=== PATIENT | male | born 1960 | race Caucasian/White ===

== ENCOUNTER 2016-10-24 06:09 | Day surgery (SDC) | payer MEDICAID ==
[~2016-10-24] VITALS: Ht 177.8 cm; Wt 140.9 kg
[~2016-10-24 06:09] MED LIST: BLOO1KIT65; BLOOD GLUCOSE T1 TES SQ; GEMF600T PO; HYDR25TA5 PO; LEVO25TA4 PO; METF500T PO; ONETTES4; TAMO20TA6 PO
[2016-10-24 06:45] VITALS: BP 158/94; PULSE 98; RESP 20; TEMP 98.2; O2SAT 96
[2016-10-24] MEDS ORDERED: SODIUM CHLOR 0.9% 1000 ML IV SCH (07:00)
[2016-10-24] MEDS ORDERED: LIDOCAINE HCL 1% 20 ML VIAL ONE ×2 (08:05→08:53)
[2016-10-24] MEDS ORDERED: MIDAZOLAM HCL 2 MG/2 ML VIAL ONE ×2 (08:23→08:54)
[2016-10-24] MEDS ORDERED: fentaNYL CITRATE 250 MCG/5 ML AMP ONE (08:23)
--- NOTE | 2016-10-24 09:05 | PD.RAD ---
Post CT Procedure Prog Note Pre Procedure Diagnosis: (1) History of renal cell cancer (2) History of breast cancer Post Procedure Diagnosis: (1) History of renal cell cancer (2) History of breast cancer Procedure Date: Oct 24, 2016 Supervising Radiologist: Awais Brown Anesthesia: Conscious Sedation Plan of Activity Patient to Unit: ROPU Patient Condition: Good Additional Comments: biopsies of left iliac bone mass See PACS Report for procedural detail/treatment Awais Brown MD Oct 24, 2016 09:05
[2016-10-24 09:15] VITALS: BP 126/71; PULSE 89; RESP 18; TEMP 98.5; O2SAT 94
[2016-10-24 09:33] VITALS: BP 105/62; PULSE 78; RESP 18; O2SAT 97
[2016-10-24 10:00] VITALS: BP 122/76; PULSE 73; RESP 18; O2SAT 95
[2016-10-24 10:30] VITALS: BP 106/63; PULSE 86; RESP 18; O2SAT 92
--- NOTE | 2016-10-24 10:49 | RADRPT ---
EXAM DATE/TIME: 10/24/2016 08:36 [place] COMPARISON: No previous studies available for comparison. INDICATIONS : Left iliac bone lesion. SEDATION TIME: 30 minutes BIOPSY SITE: History of breast CA and renal cell carcinoma with now multiple osseous metastases. A left iliac meta static focus will be targeted. MEDICATION(S): 1.) 3 mg midazolam (Versed) IV 2.) 100 mcg fentanyl (Sublimaze) IV DEVICE(S): 1.) 11 gauge Bone biopsy needle MEDICAL HISTORY : Carcinoma, breast. Hypertension. Diabetes mellitus type 2. Renal cell carcimona SURGICAL HISTORY : Mastectomy, bilateral. Left nephrectomy. ENCOUNTER: Initial ACUITY: 1 day PAIN SCORE: 0/10 LOCATION: Left A total of two core specimen(s) were obtained and sent to the laboratory for pathologic evaluation. PROCEDURE: 1. CT guided bone deep biopsy. 2. Conscious sedation with continuous EKG and oximetry monitoring. 3. EKG and oximetry remained stable throughout the procedure. Prior to the procedure informed consent was obtained. Any appropriate prior imaging studies were rev iewed. Using automated exposure control and adjustment of the mA and/or kV according to patient size, radiat ion dose was kept as low as reasonably achievable to obtain optimal diagnostic quality images. DICOM format image data is available electronically for review and comparison. The site was prepped in a sterile fashion. Full sterile technique was used, including cap, mask, yolanda rile gloves and gown and a large sterile sheet. Hand hygiene and 2% chlorhexidine and/or betadine/al cohol prep was utilized per protocol for cutaneous antisepsis. The skin and subcutaneous tissues wer e infiltrated with local anesthetic solution. With CT guidance the previously identified target was localized. Biopsy was performed using the presc ribed needle as above. Adequate hemostasis was obtained with compression at the puncture site. Follow-up CT scan reveals no hemorrhage. The patient tolerated the procedure well and there were no complications. The patient was returned to the Radiology Outpatient Unit in stable condition. CONCLUSION: Uncomplicated CT guided biopsy of mass in the left iliac bone.. Awais Brown MD on October 24, 2016 at 10:39 Board Certified Radiologist. This report was verified electronically.
[2016-10-24 11:00] VITALS: BP_SYST 106; BP_SYST 108; BP_DIAS 53; BP_DIAS 75; PULSE 85; PULSE 86; RESP 18; O2SAT 92; O2SAT 94
[2016-11-07] MEDS ORDERED: HYDR25TA5 PO (11:39)
[2016-11-11] MEDS ORDERED: LEVO25TA4 PO (08:07)
== END 2016-10-24 11:15 | disposition home or self-care (01) ==
LOC: HRAD 06:09 → HRIP 06:12 → HRAD 11:15
PROVIDERS: ATTEND Internal Medicine Hematology & Oncology
DX: C79.51 Secondary malignant neoplasm of bone (principal); Z85.3 Personal history of malignant neoplasm of breast; Z85.528 Personal history of other malignant neoplasm of kidney; I10 Essential (primary) hypertension; E11.9 Type 2 diabetes mellitus without complications
CPT/HCPCS: 20220; 77012; 88305; 88341; 88342; 99152; 99153; J2250; J3010; J7030; 20225; G0364

== ENCOUNTER 2017-11-04 14:58 | Inpatient (IN) ==
[2017-11-04] MEDS ORDERED: Morphine Inj 4 MG/ML Vial IV.PUSH ONE ×2 (15:47→17:56)
[2017-11-04] MEDS ORDERED: Sod Chloride 0.9% Inj 1,000 ML IV.SIG ONE (15:47)
[2017-11-04 16:22] LABS: Baso # (Auto) 0.1 th/mm3 (0.0-0.2); Baso % (Auto) 2.1 % (0.0-2.0); Eos # (Auto) 0.4 th/mm3 (0.0-0.4); Eos % (Auto) 7.7 % (0.0-4.0); Hematocrit 37.6 % (39.0-51.0); Hemoglobin 12.6 gm/dL (13.0-17.0); Lymph # (Auto) 0.7 th/mm3 (1.0-4.8); Lymph % (Auto) 15.7 % (9.0-44.0); Mean Corpuscular HGB Conc 33.6 % (32.0-36.0); Mean Corpuscular Hemoglobin 31.9 pg (27.0-34.0); Mean Corpuscular Volume 94.9 fL (80.0-100.0); Mono # (Auto) 0.4 th/mm3 (0.0-0.9); Mono % (Auto) 8.6 % (0.0-8.0); Neut # (Auto) 3.1 th/mm3 (1.8-7.7); Neut % (Auto) 65.9 % (16.0-70.0); Platelet Count 174 th/mm3 (150-450); Red Blood Count 3.96 mil/mm3 (4.50-5.90); Red Cell Distribution Width 15.5 % (11.6-17.2); White Blood Count 4.7 th/mm3 (4.0-11.0)
--- NOTE | 2017-11-04 16:38 | XR ---
EXAM DATE: 11/04/2017 4:31 PM EDT AGE/SEX: 57 years / Male INDICATIONS: Fever. CLINICAL DATA: This is the patient's initial encounter. Patient reports that signs and symptoms have been present for 1 day and indicates a pain score of 0/10. MEDICAL/SURGICAL HISTORY: . breast cancer, mets to bone . . left kidney replaced, double maste ctomy COMPARISON: T[facility], CT CHEST W/O CONTRAST, 07/22/2017. . FINDINGS: Single AP upright portable view of the chest demonstrates a right-sided central line with the tip ove rlying the mid SVC. There is asymmetric irregular parenchymal opacity involving the right perihilar r egion which corresponds to the abnormal CT findings seen on prior exam. This appears grossly stable t o slightly decreased in prominence. The remainder the lungs are clear. CONCLUSION: Persistent right perihilar soft tissue density which appears stable to slightly decreased in size as compared to the prior CT. No new parenchymal abnormality seen. Electronically signed by: Viola Baker MD 11/04/2017 4:37 PM EDT
[2017-11-04 16:41] LABS: Albumin 3.2 g/dL (3.4-5.0); Anion Gap 12 meq/L (5-15); Aspartate Aminotransferase 46 U/L (15-37); Blood Urea Nitrogen 4 mg/dL (7-18); Calcium 8.4 mg/dL (8.5-10.1); Carbon Dioxide 22.2 meq/L (21.0-32.0); Chloride 101 meq/L (98-107); Glomerular Filtration Rate 73 mL/min (>89); Glucose,Random 92 mg/dL (74-106); Potassium 3.9 meq/L (3.5-5.1); Sodium 135 meq/L (136-145)
[2017-11-04 16:42] LABS: Alanine Aminotransferase 20 U/L (12-78)
[2017-11-04 16:44] LABS: Alkaline Phosphatase 140 U/L (45-117)
[2017-11-04] MEDS ORDERED: HYDROmorphone PF Inj 2 MG/ML Vial IV.PUSH ONE (17:01)
--- NOTE | 2017-11-04 18:06 | ED ---
HPI General Chief complaint: Fever Stated complaint: Back Pain Time Seen by Provider: 11/04/17 15:42 History of Present Illness HPI narrative: This is a 57-year-old male with a history of metastatic breast cancer, presents here today with severe bone pain and subjective fever. Patient states he called his oncologist who told him to come to the ER. The patient reports subjective fevers. He states he has such severe pain that he can get out of his easy chair. He denies any productive cough. He denies any urinary symptoms. He states he has pain in his back spine bones as well as his knees. He reports he just recently started a new chemotherapy today. There are no other complaints at time of my examination. Related Data Home Medications Medication Instructions Recorded Confirmed capecitabine [Xeloda] 2,500 mg PO Q12H 09/05/17 11/04/17 ferrous sulfate [Iron (ferrous 325 mg PO BID 09/05/17 11/04/17 sulfate)] hydrochlorothiazide 25 mg PO DAILY 09/05/17 11/04/17 metformin 500 mg PO DAILY 09/05/17 11/04/17 morphine 30 mg PO BID 09/23/17 11/04/17 oxycodone-acetaminophen 1 tab PO Q4-6H PRN 09/23/17 11/04/17 Previous Rx's Medication Instructions Recorded lidocaine [Lidoderm] 2 patch TOPICAL Q24H #30 each 09/05/17 Allergies Allergy/AdvReac Type Severity Reaction Status Date / Time oxytetracycline Allergy Severe Anaphylaxis Verified 11/04/17 15:36 Review of Systems Constitutional Denies chills, Reports fever(s) (Subjective), Denies headache(s) and Reports weakness Eyes Reports system reviewed and no additional complaints, except as docu ENT Reports system reviewed and no additional complaints, except as docu Cardiovascular Denies chest pain and Denies dyspnea Respiratory Denies chest congestion, Denies cough and Denies dyspnea Gastrointestinal Reports constipation, Denies nausea and Denies vomiting Genitourinary Denies difficulty urinating and Denies dysuria Musculoskeletal Reports back pain and Reports other (Diffuse bony pain. Worse in the back/ spine and knees.) Integumentary/Breasts Reports system reviewed and no additional complaints, except as docu Neurologic Denies headache(s) and Reports weakness (Progressive diffuse) [facility] Social History Social History Substance History: No History of Abuse Second Hand Smoke Exposure: No Smoking Status: Former smoker Tobacco Type: Cigarettes How Often Do You Have a Drink Containing Alcohol: Never Recent Travel in [facility] within the Last 8 Weeks: No Recent Out of Country Travel within the Last 8 Weeks: No Immunization History Tetanus Immunization: Unsure Hx Influenza Vaccine This Season: No Exam Narrative Exam Narrative: GENERAL: Well-developed well-nourished male in obvious pain and discomfort. SKIN: Focused skin assessment warm/dry. HEAD: Atraumatic. Normocephalic. EYES: No scleral icterus. No injection or drainage. ENT: No nasal bleeding or discharge. Mucous membranes pink and moist. NECK: Trachea midline. Supple. No obvious JVD. CARDIOVASCULAR: Sinus tachycardia. No murmur appreciated. RESPIRATORY: No accessory muscle use. Clear to auscultation. Breath sounds equal bilaterally. GASTROINTESTINAL: Abdomen soft, non-tender, nondistended. Hepatic and splenic margins not palpable. MUSCULOSKELETAL: Diffuse pain in the joints. Worse in his left knee compared to right knee. NEUROLOGICAL: Awake and alert and weak appearing. No obvious cranial nerve deficits. Motor grossly within normal limits. Normal speech. Course Initial Documented Vital Signs Temperature 99.6 F 11/04/17 15:31 Pulse Rate 111 H 11/04/17 15:31 Respiratory Rate 24 11/04/17 15:31 Blood Pressure 133/72 11/04/17 15:31 Pulse Oximetry 95 11/04/17 15:31 Last Documented Vital Signs Temperature 99.6 F 11/04/17 15:31 Pulse Rate 108 H 11/04/17 17:38 Respiratory Rate 18 11/04/17 17:38 Blood Pressure 130/78 11/04/17 17:38 Pulse Oximetry 96 11/04/17 17:38 Medical Decision Making MDM Narrative Medical decision making narrative: This is a 57-year-old male with a history of metastatic breast cancer to the bones, presents today with complaints of severe bony pain. Patient also reports severe weakness. The patient has received 2 doses of IV narcotic pain medication is still rates his pain as a 10 out of 10 on the pain scale. He has been given a third dose of morphine. [facility] The patient has had cultures ordered. His temp here was 99.6. Urinalysis is pending at this time. Chest x-ray shows no acute infiltrate. Medical Screen Exam Complete: Yes Emergency Medical Condition: Yes Differential Diagnosis Differential Diagnosis: Rectal pain versus metabolic derangement versus pneumonia versus UTI Lab Data Result diagrams: 11/04/17 15:50 11/04/17 15:50 Lab Results 11/04/17 11/04/17 11/04/17 Range/Units 15:50 15:50 15:50 WBC 4.7 (4.0-11.0) th/mm3 RBC 3.96 L (4.50-5.90) mil/mm3 Hgb 12.6 L (13.0-17.0) gm/dL Hct 37.6 L (39.0-51.0) % MCV 94.9 (80.0-100.0) fL MCH 31.9 (27.0-34.0) pg MCHC 33.6 (32.0-36.0) % RDW 15.5 (11.6-17.2) % Plt Count 174 D (150-450) th/mm3 MPV 8.0 (7.0-11.0) fL Neut % (Auto) 65.9 (16.0-70.0) % Lymph % (Auto) 15.7 (9.0-44.0) % [place] % (Auto) 8.6 H (0.0-8.0) % Eos % (Auto) 7.7 H (0.0-4.0) % Baso % (Auto) 2.1 H (0.0-2.0) % Neut # (Auto) 3.1 (1.8-7.7) th/mm3 Lymph # (Auto) 0.7 L (1.0-4.8) th/mm3 [place] # (Auto) 0.4 (0.0-0.9) th/mm3 Eos # (Auto) 0.4 (0.0-0.4) th/mm3 Baso # (Auto) 0.1 (0.0-0.2) th/mm3 WBC Differential . Differential Comment Auto diff final Sodium 135 L (136-145) meq/L Potassium 3.9 (3.5-5.1) meq/L Chloride 101 (98-107) meq/L Carbon Dioxide 22.2 (21.0-32.0) meq/L Anion Gap 12 (5-15) meq/L BUN 4 L (7-18) mg/dL Creatinine 1.04 (0.60-1.30) mg/dL Estimated GFR 73 L (>89) mL/min Random Glucose 92 (74-106) mg/dL Lactic Acid (0.4-2.0) mmol/L Calcium 8.4 L (8.5-10.1) mg/dL Total Bilirubin 0.4 (0.2-1.0) mg/dL AST 46 H (15-37) U/L ALT 20 (12-78) U/L Alkaline Phosphatase 140 H (45-117) U/L Total Protein 7.0 (6.4-8.2) g/dL Albumin 3.2 L (3.4-5.0) g/dL Lipase 212 (73-393) U/L 11/04/17 Range/Units 15:50 WBC (4.0-11.0) th/mm3 RBC (4.50-5.90) mil/mm3 Hgb (13.0-17.0) gm/dL Hct (39.0-51.0) % MCV (80.0-100.0) fL MCH (27.0-34.0) pg MCHC (32.0-36.0) % RDW (11.6-17.2) % Plt Count (150-450) th/mm3 MPV (7.0-11.0) fL Neut % (Auto) (16.0-70.0) % Lymph % (Auto) (9.0-44.0) % [place] % (Auto) (0.0-8.0) % Eos % (Auto) (0.0-4.0) % Baso % (Auto) (0.0-2.0) % Neut # (Auto) (1.8-7.7) th/mm3 Lymph # (Auto) (1.0-4.8) th/mm3 [place] # (Auto) (0.0-0.9) th/mm3 Eos # (Auto) (0.0-0.4) th/mm3 Baso # (Auto) (0.0-0.2) th/mm3 WBC Differential Differential Comment Sodium (136-145) meq/L Potassium (3.5-5.1) meq/L Chloride (98-107) meq/L Carbon Dioxide (21.0-32.0) meq/L Anion Gap (5-15) meq/L BUN (7-18) mg/dL Creatinine (0.60-1.30) mg/dL Estimated GFR (>89) mL/min Random Glucose (74-106) mg/dL Lactic Acid 0.9 (0.4-2.0) mmol/L Calcium (8.5-10.1) mg/dL Total Bilirubin (0.2-1.0) mg/dL AST (15-37) U/L ALT (12-78) U/L Alkaline Phosphatase (45-117) U/L Total Protein (6.4-8.2) g/dL Albumin (3.4-5.0) g/dL Lipase (73-393) U/L Imaging Data Radiologist's impression: Chest X-Ray 11/04/17 15:48 CONCLUSION: Persistent right perihilar soft tissue density which appears stable to slightly decreased in size as compared to the prior CT. No new parenchymal abnormality seen. Discharge Plan Discharge Disposition Patient Disposition: 30 Still Patient Discharge Details Diagnosis: Intractable pain, Metastasis from breast cancer, Low grade fever, Diabetes mellitus Physicians Team ED Provider: Nikko Anderson Rxs /Orders / Referrals /Forms Prescriptions: No Action capecitabine [Xeloda] 500 mg Tablet 2,500 mg PO Q12H RF: 0 ferrous sulfate [Iron (ferrous sulfate)] 325 mg (65 mg iron) Tablet 325 mg PO BID RF: 0 hydrochlorothiazide 25 mg Tablet 25 mg PO DAILY RF: 0 metformin 500 mg Tablet Extended Release 24 Hr 500 mg PO DAILY RF: 0 lidocaine [Lidoderm] 5 % adhesive patch,medicated 2 patch TOPICAL Q24H Qty: 30 RF: 0 oxycodone-acetaminophen 10-325 mg Tablet 1 tab PO Q4-6H PRN (Reason: Pain) RF: 0 morphine 30 mg Capsule, Er Multiphase 24 Hr 30 mg PO BID RF: 0 Status ED Status: With Doctor
[2017-11-04] MEDS ORDERED: Acetaminophen 325 MG Tablet PO PRN ×2 (18:29→18:31)
[2017-11-04] MEDS ORDERED: Bisacodyl 10 MG Supp RECTAL PRN (18:29)
[2017-11-04] MEDS ORDERED: Naloxone Inj 0.4 MG/ML Vial IV.PUSH PRN (18:31)
[2017-11-04] MEDS ORDERED: oxyCODONE/Acetaminophen 10/325 Tablet PO PRN (18:45)
[2017-11-04] MEDS ORDERED: Dextrose 50% in Water 50 ML Vial IV.PUSH PRN (18:51)
--- NOTE | 2017-11-04 19:02 | P.HP ---
History of Present Illness Primary Care Physician: Guanaco Avila History of Present Illness: This is a 49-year-old male with a history of metastatic breast cancer (on chemotherapy) to the thoracic and lumbar spine, right pelvis and lymph nodes, hypertension and diabetes mellitus. He presents to the emergency room complaining of severe pain involving the right pelvis. No recent fall. Patient is on chronic narcotic on long-acting morphine 50 mg twice a day and Percocet 10 mg every 4-6 hours. He was advised by his oncologist was sent to the emergency room for further evaluation and treatment. He received 2 doses of IV morphine 4 mg and 1 dose of 1 mg IV Dilaudid. At this time pain is slightly better. Family history of lung cancer. Review of Systems All other systems reviewed negative except as stated in HPI [facility] - History History Provided By: Patient - Medical History Medical History: Medical History (Last Reviewed 11/04/17 @ 18:57 by Julian Farley MD) Bone cancer Breast cancer in male Cancer of kidney - Surgical History Surgical History: Surgical History (Last Reviewed 11/04/17 @ 18:57 by Julian Farley MD) H/O bilateral mastectomy H/O kidney removal - Tobacco History Second Hand Smoke Exposure: No Tobacco Use In Past 30 Days: No Smoking Status: Former smoker Tobacco Type: Cigarettes - Alcohol History How Often Do You Have a Drink Containing Alcohol: Never - Substance Use History Substance History: No History of Abuse - Travel History Recent Travel in the [place] Within the Last 8 Weeks: No Recent Travel Out of the Country Within the Last 8 Weeks: No - Immunization History Tetanus Immunization: Unsure Hx Influenza Vaccine This Season: No Medications and Allergies Active Medications: Active Medications Acetaminophen (Tylenol) 650 mg PO Q4H PRN PRN Reason: Temp > 100.4 Al Hydroxide/Mg Hydroxide (Milk Of Magnesia Liq) 30 ml PO Q12H PRN PRN Reason: Mild Constipation Bisacodyl (Dulcolax Supp) 10 mg RECTAL DAILY PRN PRN Reason: SEVERE CONSITIPATION Ferrous Sulfate (Ferosul) 325 mg PO BID WILI Hydrochlorothiazide (Hydrodiuril) 25 mg PO DAILY WILI Sodium Chloride (Ns Inj) 1,000 mls @ 100 mls/hr IV.CONT .Q10H WILI Lactulose (Lactulose Liq) 30 ml PO DAILY PRN PRN Reason: SEVERE CONSITIPATION Lidocaine HCl (Lidoderm 5% Patch.12 Hr) 2 patch T-DERMAL Q24H [facility] Morphine Sulfate (Morphine Inj) 4 mg IV.PUSH Q3H PRN PRN Reason: BREAKTHROUGH PAIN Naloxone HCl (Narcan Inj) 0.4 mg IV.PUSH UNSCH PRN PRN Reason: SEE LABEL COMMENTS Non-Formulary Medication (Capecitabine [Xeloda]) 2,500 mg PO Q12H [facility] Non-Formulary Medication (Metformin [Metformin]) 500 mg PO DAILY [facility] Non-Formulary Medication (Morphine [Morphine]) 50 mg PO BID [facility] Ondansetron HCl (Zofran Inj) 4 mg IV.PUSH Q6H PRN PRN Reason: NAUSEA OR VOMITING Oxycodone/Acetaminophen (Percocet 10/325 Mg) 1 tab PO Q4H PRN PRN Reason: PAIN SCALE 1 TO 10 Senna/Docusate Sodium (Mary-Colace) 1 tab PO BID [facility] Sennosides (Senokot) 17.2 mg PO Q12H PRN PRN Reason: Moderate Constipation Sodium Chloride (Ns Flush) 2 ml IV.FLUSH PRN PRN PRN Reason: FLUSH AFTER USING IV ACCESS Allergies Allergy/AdvReac Type Severity Reaction Status Date / Time oxytetracycline Allergy Severe Anaphylaxis Verified 11/04/17 15:36 Home Medications Medication Instructions Recorded Confirmed Type capecitabine [Xeloda] 2,500 mg PO Q12H 09/05/17 11/04/17 History ferrous sulfate [Iron (ferrous 325 mg PO BID 09/05/17 11/04/17 History sulfate)] hydrochlorothiazide 25 mg PO DAILY 09/05/17 11/04/17 History metformin 500 mg PO DAILY 09/05/17 11/04/17 History morphine 30 mg PO BID 09/23/17 11/04/17 History oxycodone-acetaminophen 1 tab PO Q4-6H PRN 09/23/17 11/04/17 History Exam Vital signs: Vital Signs 11/04/17 15:31 11/04/17 16:39 11/04/17 17:35 Temperature 99.6 F Pulse Rate 111 H 112 H Respiratory Rate 24 20 20 Blood Pressure 133/72 132/72 Pulse Oximetry 95 98 11/04/17 17:38 11/04/17 18:14 11/04/17 18:17 Temperature Pulse Rate 108 H 115 H Respiratory Rate 18 20 18 Blood Pressure 130/78 164/108 H Pulse Oximetry 96 3 L 11/04/17 18:38 Temperature Pulse Rate Respiratory Rate 20 Blood Pressure Pulse Oximetry Intake & Output 11/03/17 11/04/17 11/04/17 18:59 06:59 18:59 Intake Total 1000 / 1000 Balance 1000 / 1000 Weight 126.552 kg Intake: IV 1000 / 1000 NS Inj 1,000 ML @ Wide Open IV. 1000 / 1000 SIG BOLUS ONE Rx#:[id number] Narrative: GENERAL: Well-developed, obese in distress due to pain SKIN: Warm and dry. HEAD: Atraumatic. Normocephalic. EYES: Pupils equal and round. No scleral icterus. No injection or drainage. ENT: No nasal bleeding or discharge. Mucous membranes pink and moist. NECK: Trachea midline. No JVD. CARDIOVASCULAR: Regular rate and rhythm. RESPIRATORY: No accessory muscle use. Clear to auscultation. Breath sounds equal bilaterally. GASTROINTESTINAL: Abdomen soft, non-tender, nondistended. Hepatic and splenic margins not palpable. MUSCULOSKELETAL: Extremities without clubbing, cyanosis, or edema. No obvious deformities. NEUROLOGICAL: Awake and alert. No obvious cranial nerve deficits. Motor grossly within normal limits. Five out of 5 muscle strength in the arms and legs. Normal speech. PSYCHIATRIC: Appropriate mood and affect; insight and judgment normal. Results - Labs CBC & Chem 7: 11/04/17 15:50 11/04/17 15:50 Labs: Laboratory Results - last 24 hr 11/04/17 11/04/17 11/04/17 15:50 15:50 15:50 WBC 4.7 RBC 3.96 L Hgb 12.6 L Hct 37.6 L MCV 94.9 MCH 31.9 MCHC 33.6 RDW 15.5 Plt Count 174 D MPV 8.0 Neut % (Auto) 65.9 Lymph % (Auto) 15.7 [place] % (Auto) 8.6 H Eos % (Auto) 7.7 H Baso % (Auto) 2.1 H Neut # (Auto) 3.1 Lymph # (Auto) 0.7 L [place] # (Auto) 0.4 Eos # (Auto) 0.4 Baso # (Auto) 0.1 WBC Differential . Differential Comment Auto diff final Sodium 135 L Potassium 3.9 Chloride 101 Carbon Dioxide 22.2 Anion Gap 12 BUN 4 L Creatinine 1.04 Estimated GFR 73 L Random Glucose 92 Lactic Acid Calcium 8.4 L Total Bilirubin 0.4 AST 46 H ALT 20 Alkaline Phosphatase 140 H Total Protein 7.0 Albumin 3.2 L Lipase 212 11/04/17 15:50 WBC RBC Hgb Hct MCV MCH MCHC RDW Plt Count MPV Neut % (Auto) Lymph % (Auto) [place] % (Auto) Eos % (Auto) Baso % (Auto) Neut # (Auto) Lymph # (Auto) [place] # (Auto) Eos # (Auto) Baso # (Auto) WBC Differential Differential Comment Sodium Potassium Chloride Carbon Dioxide Anion Gap BUN Creatinine Estimated GFR Random Glucose Lactic Acid 0.9 Calcium Total Bilirubin AST ALT Alkaline Phosphatase Total Protein Albumin Lipase - Imaging Impressions Chest X-Ray 11/04/17 15:48 CONCLUSION: Persistent right perihilar soft tissue density which appears stable to slightly decreased in size as compared to the prior CT. No new parenchymal abnormality seen. Caprini VTE Risk Assessment Caprini VTE Risk Assessment: Moderate/High Risk (score >= 2) Caprini Risk Assessment Model: Point Value = 1 Point Value = 2 Point Value = 3 Point Value = 5 Age 41-60 Minor surgery BMI > 25 kg/m2 Swollen legs Varicose veins or History of unexplained or recurrent spontaneous Oral contraceptives or hormone replacement Sepsis (< 1 month) Serious lung disease, including pneumonia (< 1 month) Abnormal pulmonary function Acute myocardial infarction Congestive heart failure (< 1 month) History of inflammatory bowel disease Medical patient at bed rest Age 61-74 Arthroscopic surgery Major open surgery (> 45 min) Laparoscopic surgery (> 45 min) Malignancy Confined to bed (> 72 hours) Immobilizing plaster cast Central venous access Age >= 75 History of VTE Family history of VTE Factor V Leiden Prothrombin [id number] Lupus anticoagulant Anticardiolipin antibodies Elevated serum homocysteine Heparin-induced thrombocytopenia Other congenital or acquired thrombophilia Stroke (< 1 month) Elective arthroplasty Hip, pelvis, or leg fracture Acute spinal cord injury (< 1 month) Prophylaxis Regimen: Total Risk Factor Score Risk Level Prophylaxis Regimen 0-1 Low Early ambulation 2 Moderate Order ONE of the following: *Sequential Compression Device (SCD) *Heparin 5000 units SQ BID 3-4 Higher Order ONE of the following medications: *Heparin 5000 units SQ TID *Enoxaparin/Lovenox 40 mg SQ daily (WT < 150 kg, CrCl > 30 mL/min) *Enoxaparin/Lovenox 30 mg SQ daily (WT < 150 kg, CrCl > 10-29 mL/min) *Enoxaparin/Lovenox 30 mg SQ BID (WT < 150 kg, CrCl > 30 mL/min) AND/OR *Sequential Compression Device (SCD) 5 or more Highest Order ONE of the following medications: *Heparin 5000 units SQ TID (Preferred with Epidurals) *Enoxaparin/Lovenox 40 mg SQ daily (WT < 150 kg, CrCl > 30 mL/min) *Enoxaparin/Lovenox 30 mg SQ daily (WT < 150 kg, CrCl > 10-29 mL/min) *Enoxaparin/Lovenox 30 mg SQ BID (WT < 150 kg, CrCl > 30 mL/min) AND *Sequential Compression Device (SCD) Assessment and Plan - Plan This is a 49-year-old male with a history of metastatic breast cancer to the thoracic and lumbar spine, right pelvis and lymph nodes, hypertension and diabetes mellitus. He presents to the emergency room complaining of severe pain involving the right pelvis. No recent fall. Patient is on chronic narcotic on long-acting morphine 50 mg twice a day and Percocet 10 mg every 4-6 hours. Intractable pain with a history of metastatic breast cancer to the thoracic and lumbar spine, right pelvis and left nodes. Continue long-acting morphine sulfate 50 mg twice a day, Percocet 10 mg every 4 hours and IV morphine 4 mg every 4 hours for breakthrough pain. Consult patient's oncologist and palliative care for pain management. Hypertension. Not well controlled secondary to pain. Resume hydrochlorothiazide and to monitor Diabetes mellitus. Continue metformin and monitor fingersticks and sliding scale coverage. DVT prophylaxis with subcu heparin. Discharge Planning: Home health care versus rehab
[2017-11-04 20:36] LABS: Bilirubin,Urine Negative (Negative); Clarity,Urine Clear (Clear); Color,Urine Yellow (Yellw/Straw); Glucose,Urine (UA) Negative (Negative); Leukocyte Esterase,Urine Negative (Negative); Nitrite,Urine Negative (Negative); Specific Gravity,Urine 1.008 (1.002-1.035)
[2017-11-04] MEDS ORDERED: MORPHINE 30 MG PO SCH (21:00)
[2017-11-04] MEDS ORDERED: CAPECITABINE PO SCH (21:00)
[2017-11-04] MEDS: Senna/Docusate Sodium 8.6/50 MG Tablet PO SCH (22:29)
[2017-11-04] MEDS: oxyCODONE/Acetaminophen 10/325 Tablet PO PRN (22:30)
[2017-11-04] MEDS: Ferrous Sulfate 325 MG Tablet PO SCH (22:33)
[2017-11-04] MEDS: Heparin - SQ 10,000 UNITS/ML Vial SQ SCH (22:34)
[2017-11-04] MEDS: Sod Chloride 0.9% Inj 1,000 ML IV.CONT SCH (22:38)
[2017-11-04] MEDS: Insulin NovoLOG Aspart Correctional Sugar Inj SQ SCH (22:44)
[2017-11-04] MEDS: Lidocaine 5% Patch T-DERMAL SCH (23:10)
[2017-11-05] MEDS: oxyCODONE/Acetaminophen 10/325 Tablet PO PRN ×2 (06:39→16:55)
[2017-11-05 07:12] LABS: Baso # (Auto) 0.1 th/mm3 (0.0-0.2); Baso % (Auto) 2.2 % (0.0-2.0); Eos # (Auto) 0.3 th/mm3 (0.0-0.4); Eos % (Auto) 7.1 % (0.0-4.0); Hematocrit 34.1 % (39.0-51.0); Hemoglobin 11.6 gm/dL (13.0-17.0); Lymph % (Auto) 24.1 % (9.0-44.0); Mean Corpuscular HGB Conc 33.9 % (32.0-36.0); Mean Corpuscular Hemoglobin 31.5 pg (27.0-34.0); Mean Corpuscular Volume 92.9 fL (80.0-100.0); Mean Platelet Volume 8.3 fL (7.0-11.0); Mono # (Auto) 0.4 th/mm3 (0.0-0.9); Mono % (Auto) 9.7 % (0.0-8.0); Neut # (Auto) 2.3 th/mm3 (1.8-7.7); Neut % (Auto) 56.9 % (16.0-70.0); Platelet Count 148 th/mm3 (150-450); Red Blood Count 3.67 mil/mm3 (4.50-5.90); Red Cell Distribution Width 15.7 % (11.6-17.2)
[2017-11-05] MEDS: Morphine Sulfate 30 MG SR Tablet PO SCH ×3 (07:26→21:16)
[2017-11-05] MEDS ORDERED: Methylnaltrexone Inj 12 MG/0.6 ML Vial SQ ONE ×2 (07:29→08:00)
[2017-11-05 07:36] LABS: Calcium 7.7 mg/dL (8.5-10.1); Carbon Dioxide 23.6 meq/L (21.0-32.0); Potassium 3.6 meq/L (3.5-5.1)
[2017-11-05] MEDS: Sod Chloride 0.9% Inj 1,000 ML IV.CONT SCH ×2 (07:39→16:43)
[2017-11-05] MEDS: Senna/Docusate Sodium 8.6/50 MG Tablet PO SCH ×2 (08:10→21:19)
[2017-11-05] MEDS: hydroCHLOROthiazide 25 MG Tablet PO SCH (08:10)
[2017-11-05] MEDS: Morphine Inj 4 MG/ML Vial IV.PUSH PRN ×2 (08:27→13:05)
[2017-11-05] MEDS: Heparin - SQ 10,000 UNITS/ML Vial SQ SCH ×2 (09:30→21:14)
[2017-11-05] MEDS: Ferrous Sulfate 325 MG Tablet PO SCH ×2 (10:00→21:13)
--- NOTE | 2017-11-05 10:25 | MB ---
cc: Anam Mason MD DATE: 11/05/2017 ATTENDING PHYSICIAN: Dr. Farley. REASON FOR CONSULT: Oncology consulted patient with metastatic breast cancer, admitted with intractable pain. HISTORY OF PRESENT ILLNESS: The patient is a 57-year-old male with history of metastatic breast cancer presented to the hospital with complaint of increased low back pain, right hip pain, knee pain, and thigh pain. He also had right shoulder pain. He has history of bone metastasis. He recently developed progression of disease and was switched to a weekly Taxol chemotherapy. However, he had an allergic reaction to Taxol. He was then given a first dose of Abraxane this past Thursday. He stated after the chemotherapy, he developed progressive pain in the low back, right hip radiating down anterior thigh and knee. He was taking morphine 15 mg twice a day as well as Dilaudid, but is not controlling the pain. He was told to come to the emergency room due to the intractable pain. He was given morphine and Dilaudid intravenous and his pain is a little better. He is also complaining of constipation and has not had a bowel movement at least in the last 4 days. He denies any fever or chills. He denies any chest pressure or palpitations. Denies shortness of breath or cough. He has mild nausea without vomiting. Denies any abdominal pain. He denies any dysuria or hematuria. Denies headache or focal weakness. PAST MEDICAL HISTORY: 1. Left breast cancer subsequently developed metastatic disease in the bone. 2. Obesity. 3. Left renal cell carcinoma in 2012. PAST SURGICAL HISTORY: 1. Excision of lipoma. 2. Port placement. 3. Colonoscopy. 4. Left nephrectomy. 5. Bilateral mastectomy. ALLERGIES: PACLITAXEL. FAMILY HISTORY: Has 1 brother and 1 sister alive. No significant cancer history. SOCIAL HISTORY: Smoked a pack a day for 12 years, but quit 20 years ago. Denies any alcohol use. MEDICATIONS: 1. Ferrous sulfate. 2. Heparin. 3. Hydrochlorothiazide. 4. Lidocaine patch. 5. Metformin. 6. Morphine. 7. Mary-Colace. REVIEW OF SYSTEMS: CONSTITUTIONAL: Generalized weakness, fatigue. EYES: Negative. ENT: Negative. CARDIOVASCULAR: No chest pressure or palpitation. RESPIRATORY: Denies shortness of breath, cough. GASTROINTESTINAL: As above. GENITOURINARY: Negative. MUSCULOSKELETAL: As above. HEMATOLOGY: Negative. ENDOCRINE: Negative. PSYCHIATRIC: Negative. NEUROLOGIC: Negative. PHYSICAL EXAMINATION: VITAL SIGNS: Temperature 99.9, blood pressure 160/74. GENERAL: He is alert, oriented x3, in no acute distress. He is obese. HEENT: Atraumatic, normocephalic. Pupils are equal, round, reactive to light. Extraocular muscles are intact. No scleral icterus. Oropharynx dry mucosa. No lesion. NECK: No thyromegaly. No palpable mass. LYMPHATIC: No palpable cervical, clavicular, axillary, or inguinal lymph nodes. HEART: Regular S1, S2. No murmur. LUNGS: Clear to auscultation bilaterally. ABDOMEN: Soft, nontender. Cannot palpate liver or spleen. EXTREMITIES: No cyanosis, no clubbing, no edema. SKIN: No rash or petechiae. NEUROLOGIC: Nonfocal. LABORATORY DATA: WBC 4, hemoglobin 11.6, platelet count 148. Creatinine 1.02. ASSESSMENT: 1. Intractable pain due to bone metastasis. The patient is complaining of increased pain in the low back radiating down the right hip, thigh, and knee. He also has pain in the right shoulder and has decreased range of motion of the right shoulder. He has known metastasis in those areas. The pain started getting worse after he received first cycle of Abraxane 2 days ago. Hopefully, he is responding to Abraxane, which sometimes can cause increased bone pain. However, I am going to have him get an MRI of the lumbar spine and pelvis just to make sure he has not developed fracture. We will x-ray his shoulder and knee as well. His pain is controlled with intravenous opiate at this time. I also recommend continue the long-acting morphine 50 mg twice a day. 2. Metastatic breast cancer. He was first diagnosed with left breast cancer in 2012. He had bilateral mastectomy. Pathology showed a 6.5 cm infiltrating ductal carcinoma, moderately differentiated. 2 out of 8 lymph nodes were positive for metastatic disease. Hormone receptor positive, HER-2 negative. He was treated with dose-dense chemotherapy followed by chest wall radiation. He was on tamoxifen until he developed metastatic bone disease in 2017. PET scan at that time showed hypermetabolic lesion thoracic spine, lumbar spine, left iliac wing, and ribs. He also developed subcutaneous metastatic nodule. Biopsy of the left iliac bone lesion showed metastatic poorly differentiated carcinoma consistent with breast primary. Hormone receptor again was positive. He was treated with Xeloda 10/2016 and had good response. Recently, he developed progression of bone disease and was started on Taxol. He only had about 2 infusions of Taxol before he developed allergic infusion reaction. He stopped the Taxol for about 2 weeks. He just received first cycle of Abraxane 2 days ago. It is too early to assess response. Continue monitoring for now. 3. Hypertension, stable. 4. Diabetes mellitus. 5. Iron-deficiency anemia, on iron supplement. 6. History of left renal cell carcinoma, status post left nephrectomy 04/2013. He has no evidence of recurrent disease. 7. Constipation due to opiates. He has not had a bowel movement for about 4 days. He has been taking the stool softener. PLAN: 1. Restart long-acting opiate. 2. Continue intravenous opiate for breakthrough pain. 3. Arrange for MRI of the lumbar spine and pelvis. 4. X-ray the right shoulder and right knee. 5. We will give him a dose of Relistor and use lactulose as needed for constipation. 6. Continue deep venous thrombosis prophylaxis with heparin. Thank you Dr. Farley for asking me to see this patient. MD NED Pierce/nestor/rogelio , 07:46 AM , 08:05 AM MTDKrys
--- NOTE | 2017-11-05 10:40 | XR ---
EXAM DATE: 11/05/2017 10:35 AM EDT AGE/SEX: 57 years / Male INDICATIONS: Right knee pain CLINICAL DATA: This is the patient's initial encounter. Patient reports that signs and symptoms have been present for 2 days and indicates a pain score of 6/10. MEDICAL/SURGICAL HISTORY: . breast cancer mets to the bone . left kidney removed, double maste ctomy COMPARISON: No prior exams available for comparison. FINDINGS: There is minimal marginal osteophyte formation medially and laterally. The joint space is maintained. There is no evidence of acute fracture. Bony mineralization is normal. There is no evidence of join t effusion. CONCLUSION: Mild degenerative changes as described above. Electronically signed by: Angel Sanders MD 11/05/2017 10:38 AM EDT
--- NOTE | 2017-11-05 10:43 | XR ---
EXAM DATE: 11/05/2017 10:31 AM EDT AGE/SEX: 57 years / Male INDICATIONS: Right shoulder pain. CLINICAL DATA: This is the patient's initial encounter. Patient reports that signs and symptoms have been present for 2 days and indicates a pain score of 6/10. MEDICAL/SURGICAL HISTORY: . breast cancer mets to the bone . left kidney removed, double maste ctomy COMPARISON: [facility], SHOULDER LIMITED RIGHT 2V, 09/05/2017. . FINDINGS: Destructive process in the distal right clavicle with a mottled appearance of the lateral aspect of t he scapula concerning for bony metastases. There is also slight expansion of the lateral aspect of ri b #7 which could represent a previous healed rib fracture although a metastatic deposit in this locat ion cannot be excluded. [id number] catheter is seen in the right internal jugular vein. CONCLUSION: 1. Destructive process in the distal aspect of the right clavicle with a mottled appearance along th e lateral border of the scapula concerning for metastatic disease. These were present previously. 2. Slight expansile process in the lateral aspect of rib #7 on the right. Diagnostic considerations include an old healed rib fracture or additional metastatic deposit. This was present as well previou sly. 3. Proximal humerus remains intact. Electronically signed by: Vj Orozco MD 11/05/2017 10:42 AM EDT
[2017-11-05] MEDS ORDERED: Gadobutrol PF 2 MMOL/2 ML Vial (for RAD) IV.SIG ONE (11:23)
--- NOTE | 2017-11-05 11:36 | P.CONPAL ---
Consult Service: Palliative Care . Requesting Physician: Julian Farley Reason for Consult: a. To assist with evaluation and management of symptoms including: pain; constipation b. To assist medical decision maker(s) with: better understanding of current medical conditions; weighing benefits/burdens of medical treatment options; making medical treatment decisions. Primary Care Provider: Guanaco Avila . History of Present Illness History of Present Illness: Mr. Sorenson is 57 y/o male with a known history of metastatic breast cancer; hypertension; TB exposure; diabetes mellitus, adenomatous polyps; and past history of renal cancer s/p nephrectomy who was sent to the ED on 11/04/17 by his oncologist because of severe pain and subjective fever. He has known metastatic disease involving his thoracic and lumbar spine, right pelvis, and lymph nodes the patient's pain was primarily in this back and knees and was so severe that he was unable to get up and out of his easy chair. The patient's cancer history goes back to approximately 2011. He first noticed a left chest wall mass in that year. He initially ignored it. In November 2012 he went to the emergency room because of left flank and abdominal pain. CT of the abdomen showed both kidney stones and a large 6.5 cm mass. During that evaluation the chest wall mass was also worked up with mammography and ultrasound. A PET CT scan in December 2012 showed a hypermetabolic left breast mass measuring about 3 cm and 3 lymph nodes of concern in the left axilla. Biopsy of the left breast mass unfortunately showed moderately differentiated ductal carcinoma with focal vascular invasion. Mr. Sorenson underwent bilateral simple mastectomies on 02/28/2013 and left nephectomy on 04/05/13. Final pathology on the breast specimen showed lymphovascular invasion; 2 of 8 positive axillary nodes (with the largest node replaced by tumor and with evidence of extra-olimpia extension); Estrogen Receptor 99%; Progesterone receptor 36%; HER2 negative. The renal cancer appeared to be limited to the kidney. The patient underwent intiital adjuvant chemotherapy and chest wall radiation ( completed 10/2013). He was started on Tamoxifen. The patient did well until 2013 when he began developing some back pain. His CA 15-3 trended up and PET scan in September 2013 showed multiple hypermetabolic lesions in the T-spine; l- spine; left iliac wing; ribs; left axillary lymph node and subcutaneous nodules behind the right shoulder and in the left neck. A biopsy was done of the left iliac bone which confirmed metastatic disease of breast primary. The patient was started on Xeloda in 10/2016. The patient has not done well. He had an allergic reaction to Taxol where he developed dizziness, low back pain, neck pain, and shortness of breath during the infusion. The plan was to switch his chemotherapy to Abraxane, but the patient was unable to show up for his follow-up appointment. Pain has been quite severe for several months. He has been living in his recliner chair in his living room for approximately 3 months . He has needed a walker to get to his bathroom and [facility] very [facility] and exhaust[facility]. The patient had an increase in his opioids to address the increase pain. He has been on 50 mg of sustained release morphine twice daily and using hydrocodone/acetaminophen 10/325 q 4-6 hours for breakthrough pain. He says he is normally using 4 to 6 of those tablets a day. This had become inadequate. Increased opioids brought on severe constipation and his pain has gotten worse with the constipation and with any straining at stool. He does not recall being on other opioids. The patient struggled with constipation in spite of a rigorous bowel protocol. Patient tells me he was using the following at home on a regular basis -- Miralax; metamucil; dulcolax tab; Sennokot; Magnesium citrate. At time of my visit, the patient is back from the radiology department. He says his pain level is about as good as it ever gets -- #3-4. That is the level when lying still on his back in bed. If he tries to move or is sitting up , pain level will be back up to level 8-10 which is the usual level. Patient tells me that his worst pain is in the right hip. Most often it is in the lateral aspect of the right hip but can also involve both the anterior and posterior aspects. When bad, the right hip pain radiates down to the knee and causes numbness/tingling along with pain in that area. Next worse area of pain is right shoulder, followed by right elbow, followed by the back of the neck. Function/Cognitive Trajectory: Patient reports he has been living in his recliner chair in his living room for about 3 months because of his pain. Just walking to the bathroom and back with his walker has been very painful. He spends most of the day in his recliner watching television. He reports he has lost about 100 lbs with his illness. He believes his weight has dropped from 325 lbs down to 270 lbs just over the last 2-3 months. His appetite is fair, but he is now afraid to eat because of the constipation. 12 part review of systems was completed and is negative except for what is noted in the HPI above and the following: * Gets SOB when his Hg is low * When he gets constipated it becomes more difficult for him to urinate. Once the constipation is relieved, urine flow is normal. . Review of Systems All other systems reviewed negative except as stated in HPI PMFSH - History History Provided By: Patient, Medical Record - Medical History Medical History: Medical History (Last Updated 11/05/17 @ 18:07 by Tony Simon MD) Diabetes mellitus (Chronic) Obesity (Acute) Breast cancer in male (Acute) Hypertension Bone cancer Cancer of kidney - Surgical History Surgical History: Surgical History (Last Reviewed 11/05/17 @ 09:17 by Marianne Gardner) H/O bilateral mastectomy H/O kidney removal - Family History Family History: Family History (Last Updated 11/05/17 @ 18:08 by Tony Simon MD) Sister Family history of breast cancer Mother Family history of breast cancer Father Family history of heart disease Brother Motorcycle accident - Tobacco History Second Hand Smoke Exposure: No Tobacco Use In Past 30 Days: No Smoking Status: Former smoker Tobacco Type: Cigarettes Packs Per Day: 1 Years Smoked: 12 Smoking End Date: Over 20 years ago - Alcohol History How Often Do You Have a Drink Containing Alcohol: Never - Substance Use History Substance History: Past History - Substance Use Type Alcohol Status: Sustained Remission Route Used: By Mouth Last Used: Patient stopped alcohol around 2012 when he was diagnosed with cancer - Travel History History of Recent Travel: No Recent Travel in the [place] Within the Last 8 Weeks: No Recent Travel Out of the Country Within the Last 8 Weeks: No - Immunization History Tetanus Immunization: Unsure Hx Influenza Vaccine This Season: No Medications and Allergies Active Medications: Active Medications Acetaminophen (Tylenol) 650 mg PO Q4H PRN PRN Reason: Temp > 100.4 Al Hydroxide/Mg Hydroxide (Milk Of Magnesia Liq) 30 ml PO Q12H PRN PRN Reason: Mild Constipation Bisacodyl (Dulcolax Supp) 10 mg RECTAL DAILY PRN PRN Reason: SEVERE CONSITIPATION Dextrose (D50w Vial) 50 ml IV.PUSH UNSCH PRN PRN Reason: PER HYPOGLYCEMIA PROTOCOL Ferrous Sulfate (Ferosul) 325 mg PO BID [facility] Last Admin: 11/04/17 22:33 Dose: 325 mg Glucagon (Glucagon Inj) 1 mg OTHER PRN PRN PRN Reason: for Hypoglycemia Protocol Heparin Sodium (Porcine) (Heparin Inj) 5,000 units SQ Q12HR [facility] Last Admin: 11/04/17 22:34 Dose: 5,000 units Hydrochlorothiazide (Hydrodiuril) 25 mg PO DAILY [facility] Last Admin: 11/05/17 08:10 Dose: Not Given Sodium Chloride (Ns Inj) 1,000 mls @ 100 mls/hr IV.CONT .Q10H [facility] Last Admin: 11/05/17 07:39 Dose: Not Given Insulin Aspart (Novolog Insulin Correctional Sugar Inj) 0 unit SQ ACHS [facility]; Protocol Last Admin: 11/04/17 22:44 Dose: Not Given Lactulose (Lactulose Liq) 30 ml PO TID PRN PRN Reason: SEVERE CONSITIPATION Lidocaine HCl (Lidoderm 5% Patch.12 Hr) 2 patch T-DERMAL Q24H [facility] Last Admin: 11/04/17 23:10 Dose: 2 patch Metformin HCl (Glucophage) 500 mg PO DAILY [facility] Last Admin: 11/05/17 08:10 Dose: Not Given Morphine Sulfate (Morphine Inj) 4 mg IV.PUSH Q3H PRN PRN Reason: BREAKTHROUGH PAIN Last Admin: 11/05/17 08:27 Dose: 4 mg Morphine Sulfate (Oramorph Sr) 30 mg PO BID [facility] Last Admin: 11/05/17 07:26 Dose: Not Given Naloxone HCl (Narcan Inj) 0.4 mg IV.PUSH UNSCH PRN PRN Reason: SEE LABEL COMMENTS Ondansetron HCl (Zofran Inj) 4 mg IV.PUSH Q6H PRN PRN Reason: NAUSEA OR VOMITING Oxycodone/Acetaminophen (Percocet 10/325 Mg) 1 tab PO Q4H PRN PRN Reason: PAIN SCALE 1 TO 10 Last Admin: 11/05/17 06:39 Dose: 1 tab Patch Removal (Remove Old Patch) 1 each T-DERMAL DAILY [facility] Patient Own: ( Capecitabine [Xeloda ] 2,500 Mg) 0 each PO BID [facility] Senna/Docusate Sodium (Mary-Colace) 1 tab PO BID [facility] Last Admin: 11/05/17 08:10 Dose: 1 tab Sennosides (Senokot) 17.2 mg PO Q12H PRN PRN Reason: Moderate Constipation Sodium Chloride (Ns Flush) 2 ml IV.FLUSH PRN PRN PRN Reason: FLUSH AFTER USING IV ACCESS Allergies Allergy/AdvReac Type Severity Reaction Status Date / Time oxytetracycline Allergy Severe Anaphylaxis Verified 11/04/17 15:36 Home Medications Medication Instructions Recorded Confirmed Type capecitabine [Xeloda] 2,500 mg PO Q12H 09/05/17 11/04/17 History ferrous sulfate [Iron (ferrous 325 mg PO BID 09/05/17 11/04/17 History sulfate)] hydrochlorothiazide 25 mg PO DAILY 09/05/17 11/04/17 History metformin 500 mg PO DAILY 09/05/17 11/04/17 History morphine 30 mg PO BID 09/23/17 11/04/17 History oxycodone-acetaminophen 1 tab PO Q4-6H PRN 09/23/17 11/04/17 History Advance Directives Living Will: No Healthcare Surrogate: No Power of Health Nurse: No Documented care wishes: No writtten documentation of health care goals/preferences . Today's verbally stated goals: Patient does not want to end up on machines like a "vegetable." At this point he would want an attempted resuscitation with a "time limited trial of aggressive care." If the doctors dont think he has a reasonable chance of returning to a life with quality , he would like to be compassionately withdrawn from life support. . Family/friends goals: No family / friends present at time of my visit. . Ethical and Legal Issues: Patient is currently capacitated to make his own health care decisions. He does not have a designated health care surrogate at this time. He would like his significant other to be his health care surrogatge, but unless that is in writing, she would be bypassed and the patient's nephew would be the proxy decision maker. Physical Exam Vital Signs: Vital Signs - 24 hr 11/04/17 15:31 11/04/17 16:39 11/04/17 17:35 Temperature 99.6 F Pulse Rate 111 H 112 H Respiratory Rate 24 20 20 Blood Pressure 133/72 132/72 Pulse Oximetry 95 98 11/04/17 17:38 11/04/17 18:14 11/04/17 18:17 Temperature Pulse Rate 108 H 115 H Respiratory Rate 18 20 18 Blood Pressure 130/78 164/108 H Pulse Oximetry 96 3 L 11/04/17 18:38 11/04/17 20:15 11/04/17 20:30 Temperature 99.9 F H Pulse Rate 115 H Respiratory Rate 20 16 20 Blood Pressure 122/69 Pulse Oximetry 94 L 11/04/17 21:00 11/05/17 00:00 11/05/17 04:00 Temperature 99.8 F H 99.9 F H Pulse Rate 112 H 111 H 110 H Respiratory Rate 20 18 Blood Pressure 113/74 116/74 Pulse Oximetry 95 97 I&O: Intake & Output 11/03/17 11/04/17 11/05/17 11/06/17 06:59 06:59 06:59 06:59 Intake Total 1480 / 1480 Output Total 1000 / 1000 Balance 480 / 480 Weight 126.6 kg Physical Exam: CONSTITUTIONAL/GENERAL: This is morbidly obese male with multiple tattoos, pleasant , cooperative, conversant in an oncology floor medical bed. He appears comfortable at rest. There is grimacing with movement. TUBES/LINES/DRAINS: Right chest [id number]. SKIN: Multiple tattoos. No jaundice, rashes, or lesions.No wounds seen anteriorly. Skin temperature appropriate. Not diaphoretic. HEAD: Atraumatic. Normocephalic. EYES: Pupils equal and round and reactive. Extraocular motions intact. No scleral icterus. No injection or drainage. Fundi not examined. ENT: Hearing grossly normal. Nose without bleeding or purulent drainage. Throat without visible erythema, exudates, masses, or lesions. NECK: Trachea midline. Supple, nontender. No palpable thyroid enlargement or nodularity. CARDIOVASCULAR: Regular rate and rhythm without murmurs, gallops, or rubs. No JVD. Peripheral pulses symmetric. RESPIRATORY/CHEST: Symmetric, unlabored respirations. Clear to auscultation. Breath sounds equal bilaterally. No wheezes, rales, or rhonchi. GASTROINTESTINAL: Abdomen soft, obese, nondistended. Tenderness on both right and left mid-abdomen. No hepato-splenomegaly, or palpable masses. No guarding. Bowel sounds present. GENITOURINARY: Without palpable bladder distension. MUSCULOSKELETAL: Extremities without clubbing, cyanosis, or edema. No joint tenderness or effusion noted. No calf tenderness. No mottling or clubbing. LYMPHATICS: No palpable cervical or supraclavicular adenopathy. NEUROLOGICAL: Awake and alert. Motor and sensory grossly within normal limits. Follows commands. Cognitively sharp. Moves all extremities. PSYCHIATRIC: No obvious anxiety/depression. No apparent hallucinations or other psychotic thought process. . Diagnostic Tests Laboratory: Laboratory Results - last 72 hr 11/04/17 11/04/17 11/04/17 15:50 15:50 15:50 WBC 4.7 RBC 3.96 L Hgb 12.6 L Hct 37.6 L MCV 94.9 MCH 31.9 MCHC 33.6 RDW 15.5 Plt Count 174 D MPV 8.0 Neut % (Auto) 65.9 Lymph % (Auto) 15.7 [place] % (Auto) 8.6 H Eos % (Auto) 7.7 H Baso % (Auto) 2.1 H Neut # (Auto) 3.1 Lymph # (Auto) 0.7 L [place] # (Auto) 0.4 Eos # (Auto) 0.4 Baso # (Auto) 0.1 WBC Differential . Differential Comment Auto diff final Sodium 135 L Potassium 3.9 Chloride 101 Carbon Dioxide 22.2 Anion Gap 12 BUN 4 L Creatinine 1.04 Estimated GFR 73 L POC Glucose Random Glucose 92 Lactic Acid Calcium 8.4 L Total Bilirubin 0.4 AST 46 H ALT 20 Alkaline Phosphatase 140 H Total Protein 7.0 Albumin 3.2 L Lipase 212 Urine Color Urine Clarity Urine pH Ur Specific [place] Urine Protein Urine Glucose (UA) Urine Ketones Urine Occult Blood Urine Nitrate Urine Bilirubin Urine Urobilinogen Ur Leukocyte Esterase Urine RBC Urine WBC Micro UA Comment Ur Microscopic Review Urine Culture Comments 11/04/17 11/04/17 11/04/17 15:50 20:07 21:04 WBC RBC Hgb Hct MCV MCH MCHC RDW Plt Count MPV Neut % (Auto) Lymph % (Auto) [place] % (Auto) Eos % (Auto) Baso % (Auto) Neut # (Auto) Lymph # (Auto) [place] # (Auto) Eos # (Auto) Baso # (Auto) WBC Differential Differential Comment Sodium Potassium Chloride Carbon Dioxide Anion Gap BUN Creatinine Estimated GFR POC Glucose 111 H Random Glucose Lactic Acid 0.9 Calcium Total Bilirubin AST ALT Alkaline Phosphatase Total Protein Albumin Lipase Urine Color Yellow Urine Clarity Clear Urine pH 5.0 Ur Specific [place] 1.008 Urine Protein Negative Urine Glucose (UA) Negative Urine Ketones Trace H Urine Occult Blood Small H Urine Nitrate Negative Urine Bilirubin Negative Urine Urobilinogen Less than 2 Ur Leukocyte Esterase Negative Urine RBC Less than 1 Urine WBC 1 Micro UA Comment Culture not ind Ur Microscopic Review Not Reportable Urine Culture Comments Culture not ind 11/05/17 11/05/17 06:30 06:30 WBC 4.0 RBC 3.67 L Hgb 11.6 L Hct 34.1 L MCV 92.9 MCH 31.5 MCHC 33.9 RDW 15.7 Plt Count 148 L MPV 8.3 Neut % (Auto) 56.9 Lymph % (Auto) 24.1 [place] % (Auto) 9.7 H Eos % (Auto) 7.1 H Baso % (Auto) 2.2 H Neut # (Auto) 2.3 Lymph # (Auto) 1.0 [place] # (Auto) 0.4 Eos # (Auto) 0.3 Baso # (Auto) 0.1 WBC Differential . Differential Comment Auto diff final Sodium 138 Potassium 3.6 Chloride 104 Carbon Dioxide 23.6 Anion Gap 10 BUN 4 L Creatinine 1.02 Estimated GFR 75 L POC Glucose Random Glucose 90 Lactic Acid Calcium 7.7 L Total Bilirubin AST ALT Alkaline Phosphatase Total Protein Albumin Lipase Urine Color Urine Clarity Urine pH Ur Specific [place] Urine Protein Urine Glucose (UA) Urine Ketones Urine Occult Blood Urine Nitrate Urine Bilirubin Urine Urobilinogen Ur Leukocyte Esterase Urine RBC Urine WBC Micro UA Comment Ur Microscopic Review Urine Culture Comments Result Diagrams: 11/05/17 06:30 11/05/17 06:30 Microbiology: Microbiology 11/04/17 15:50 Aerobic Blood Culture - Preliminary Blood - Peripheral No growth in 1 day Anaerobic Blood Culture - Preliminary No growth in 1 day 11/04/17 15:55 Aerobic Blood Culture - Preliminary Blood - Peripheral No growth in 1 day Anaerobic Blood Culture - Preliminary No growth in 1 day . Imaging: Chest X-Ray 11/04/17 15:48 CONCLUSION: Persistent right perihilar soft tissue density which appears stable to slightly decreased in size as compared to the prior CT. No new parenchymal abnormality seen. Head CT 11/05/17 00:00 CONCLUSION: Negative CT Head with and without contrast. Knee X-Ray 11/05/17 00:00 CONCLUSION: Mild degenerative changes as described above. Lumbar Spine MRI 11/05/17 00:00 CONCLUSION: 1. Some evidence of increased metastatic disease to bone with new focus in L1 2. Severe canal stenosis related to dorsal bony retropulsion and disc protrusion at L3-4 which appears grossly unchanged Pelvis MRI 11/05/17 00:00 CONCLUSION: Findings of extensive osseous metastatic disease as above. Avascular necrosis versus metastatic disease left femoral head Shoulder X-Ray 11/05/17 00:00 CONCLUSION: 1. Destructive process in the distal aspect of the right clavicle with a mottled appearance along the lateral border of the scapula concerning for metastatic disease. These were present previously. 2. Slight expansile process in the lateral aspect of rib #7 on the right. Diagnostic considerations include an old healed rib fracture or additional metastatic deposit. This was present as well previously. 3. Proximal humerus remains intact. Patient/Family Conference Present at Family Conference: Patient only. . Family Conference Time: 50 Family Conference Location: Bedside Issues Discussed: * Palliative care role, purpose, approach * Additional medical, psychosocial, and spiritual history * Patients general health, functional status, and cognitive changes in the months leading up to the current hospitalization * Patient understanding of the current medical problems * Patient understanding of prognosis * Patients goals of medical treatment. * Current medical treatment options and benefits/burdens of those options * Questions answered to the best of my ability * Palliative care contact information provided . Assessment and Plan - Disease Oriented Problem List (1) Metastasis from breast cancer (2) Bone metastases (3) Low grade fever (4) Diabetes mellitus - Symptom Scale (1) Intractable pain 0-10 Scale: 8 (2) Constipation 0-10 Scale: Unable to quantify Pertinent Non-Medical Issues: Psychosocial: Born in [facility]. Moved to [place] in 1983. 10th grade education. No service. 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 Has a terminal manager "fiancee" but says he will not be able to for financial reasons. No children. Both parents . Has a sister. CLose to a nephew - - Brain Delta. Patient lives with his fiancee, her mother, and his uncle. Spiritual: Gnosticist and spiritualty have not played an important role in his life. Legal: No advance directives. Ethical issues impacting care: Patient is capacitated to make his own health care decisions at this time. . Important Contacts: Ban Varma (significant other) [phone] Brain Delta (nephew) [phone] . Prognosis: Patient has been battling metastatic breast since 2012. Disease is progressing. He is losing weight. Pain is growing worse. Pain is keeping him mostly chair bound. On the other hand , he may still have some chemotherapy options that will slow the progress of his disease and patient's goals are still aggressive. Should treatment be unable to get him more mobile, life expectancy is probably in the order of months. Given the extent of his illness, at such time that patient no longer wants to pursue aggressive cancer directed therapies, he would be eligible for hospice care. . Code Status: Full Code Plan: == Code Status: FULL CODE. Patient wants resuscitation to be attempted and wants a "time limited trial of aggressive care." Should he end up on life support, he does not want to be maintained there if the doctors feel there is little chance of him returning to a life with quality. == Decision making: patient is currently capacitated to make his own health care decisions. Should he become incapacitated, he has verbally stated that he would want his significant other -- Ban Varma -- to be his health care surrogate. He is willing to complete a health care surrogate document indicating such. == Goals of medical treatment: Patient wants his pain and constipation controlled. He wants to pursue any additional cancer directed treatments that might help to slow the progress of his disease. == Symptoms: * Pain: Most of patient's pain appears to be "bone" pain from metastatic disease and it is primarily located in metastatic areas. There is also a neuropathic component on the right where pain radiates down from the right hip toward the right knee and is associated with numbness. Pain is exacerbated by constipation and the constipation creates its own type of pain. * Constipation: This is severe and is certainly exacerbated by opioids. == PLAN * Will start dexamethasone at 4 mg daily. A relatively low dose of steroids may significant diminish the bone pain and if it allows us to decrease opioids, we might also decrease constipation. If this dose is not helpful, can certainly up-titrate. Will add PPI for gut protection while on steroids. * Recommend changing long acting opioid from morphine to methadone at 10 mg po q 8 hours ATC. There is anecdotal evidence that methadone is less constipating and may be more helpful for the neuropathic component of the pain. * Recommend changing the PRN Percocet to oxycodone without the acetaminophen. Would change order for breakthrough medication to 10-15 mg q 3 hours prn pain/ sob * Recommend doubling the scheduled Pericolase to 2 PO twice daily. * Recommend scheduling the lactulose as 30 mls twice daily and keeping the prn order as is. Fluids should be encouraged to maximize effect of lactulose. * Patient was on metamucil for constipation at home . I would discourage metamucil at this point in his illness. * Recommend stopping the ferrous sulfate for now -- Hg is adequate and the iron may be exacerbating gut discomfort. == Palliative care social work coordinator will assist patient in completing a designation of health care surrogate form. == Disposition: We will want to get pain under better control and get bowels moving adequately before discharge. As patient has essentially been chair- bound for months, he would probably benefit from some physical therapy to become ambulatory again once pain is controlled. == Patient has indicated that he would like more information on life expectancy so he can plan better. I am reluctant to provide this information without having medical oncology weigh in. == Palliative care will continue to follow to assist with symptom management and to further clarify goals of medical treatment as the clinical course evolves. . Appreciation Thank you for the opportunity to participate in the care of Darian Sorenson. Attestation Attestation: To help prompt me to consider important information that might be impacting today's encounter and assessment, information from prior notes written by myself or my colleagues may have been "brought forward" into today's note. My signature on this note, however, is an attestation that I personally performed the exam, history, and/or decision-making noted today, and, unless otherwise indicated, the interactions with patient, family, and staff as well as the review of records all occurred today. I also attest that the listed assessment and stated plan reflect my best clinical judgment today based on the combination of historical information, prior notes, and today's exam/ interactions. When time spent is documented, it refers only to time spent today by the signer, or if indicated, combined time spent today by collaborating physician/nurse practitioner. .
--- NOTE | 2017-11-05 11:42 | MR ---
EXAM DATE: 11/05/2017 11:30 AM EDT AGE/SEX: 57 years / Male INDICATIONS: Metastatic disease. CLINICAL DATA: This is the patient's subsequent encounter. Patient reports that signs and symptoms h ave been present for 1 month and indicates a pain score of 5/10. MEDICAL/SURGICAL HISTORY: Carcinoma, breast. Metastatic disease. Mastectomy, bilateral. Nephr ectomy, left. COMPARISON: [facility] [place], MR LUMBAR SPINE W & W/O CONTRAST, 09/05/2017. . TECHNIQUE: Multiplanar, multisequence MRI examination of the lumbar spine was performed without and with 12 ml Gadavist (gadobutrol) contrast as a single exam dose. FINDINGS: There is metastatic disease at multiple sites in the lumbar spine including complete replacement of t he L3 vertebral body with moderate degree of vertebral body collapse which is worsened slightly since the previous exam. Mild dorsal bony retropulsion which is grossly unchanged. Near complete replaceme nt of L5 tubal body. Replacement of the anterior half of L2 vertebral body. New small isolated focus in the posterior upper aspect of L1 which was not seen previously. Disc protrusions at multiple levels, most significantly a broad moderate size protrusion at L3-4 prod ucing significant degree of canal stenosis which is grossly unchanged with complete or near complete effacement of CSF signal around the crowded nerve roots. Large focus of marrow replacement and slight extraosseous mass involving the posterior left iliac cre st which appears grossly unchanged CONCLUSION: 1. Some evidence of increased metastatic disease to bone with new focus in L1 2. Severe canal stenosis related to dorsal bony retropulsion and disc protrusion at L3-4 which appea rs grossly unchanged Electronically signed by: Easton Bergman MD 11/05/2017 11:41 AM EDT
--- NOTE | 2017-11-05 12:39 | MR ---
EXAM DATE: 11/05/2017 11:50 AM EDT AGE/SEX: 57 years / Male INDICATIONS: Metastatic disease. Right hip pain. CLINICAL DATA: This is the patient's initial encounter. Patient reports that signs and symptoms have been present for 1 month and indicates a pain score of 6/10. MEDICAL/SURGICAL HISTORY: Carcinoma, breast. Metastatic disease. Mastectomy, bilateral. Nephr ectomy, left. COMPARISON: No prior exams available for comparison. TECHNIQUE: Multiplanar, multisequence MRI examination of the pelvis was performed with 12 ml Gadav ist (gadobutrol) contrast and without contrast as a single exam dose. FINDINGS: There are numerous foci of osseous metastatic disease identified throughout the pelvis with the large and lesion in the right ilium measuring 3.2 cm as well as a posterior left ilium mass also measuring 3 cm. This would be the easiest site for biopsy. Examination of the left femur demonstrates marrow e mimi involving the left femoral head with findings of fracture. Whether this reflects avascular necro sis or another site of metastatic disease is uncertain. There is metastatic disease involving the lef t femoral neck. There is also extensive marrow edema involving the left acetabulum. Soft tissue images of the pelvis demonstrate no abnormality. There is enthesopathy at the insertion o f the gluteus medius tendons bilaterally. CONCLUSION: Findings of extensive osseous metastatic disease as above. Avascular necrosis versus metastatic disease left femoral head Electronically signed by: Angel Sanders MD 11/05/2017 12:37 PM EDT
--- NOTE | 2017-11-05 13:14 | P.PN ---
Subjective Interval history: awake and alert, complains of generalized pain some headaches and nausea states easily gets "pluggd up"- meaning constipated Physical Exam Vital signs: Vital Signs 11/04/17 15:31 11/04/17 16:39 11/04/17 17:35 Temperature 99.6 F Pulse Rate 111 H 112 H Respiratory Rate 24 20 20 Blood Pressure 133/72 132/72 Pulse Oximetry 95 98 11/04/17 17:38 11/04/17 18:14 11/04/17 18:17 Temperature Pulse Rate 108 H 115 H Respiratory Rate 18 20 18 Blood Pressure 130/78 164/108 H Pulse Oximetry 96 3 L 11/04/17 18:38 11/04/17 20:15 11/04/17 20:30 Temperature 99.9 F H Pulse Rate 115 H Respiratory Rate 20 16 20 Blood Pressure 122/69 Pulse Oximetry 94 L 11/04/17 21:00 11/05/17 00:00 11/05/17 04:00 Temperature 99.8 F H 99.9 F H Pulse Rate 112 H 111 H 110 H Respiratory Rate 20 18 Blood Pressure 113/74 116/74 Pulse Oximetry 95 97 Intake & Output 11/04/17 11/05/17 11/05/17 18:59 06:59 18:59 Intake Total 1000 / 1000 480 / 480 Output Total 1000 / 1000 Balance 1000 / 1000 -520 / -520 Weight 126.552 kg 126.6 kg Intake: IV 1000 / 1000 NS Inj 1,000 ML @ Wide Open IV. 1000 / 1000 SIG BOLUS ONE Rx#:[id number] Oral 480 / 480 Output: Urine 1000 / 1000 Narrative: awake and alert, oriented x 3, speech clear anicteric neck supple, lungs- no rales regular rhythma bdomen- flabby, soft, good bowel sounds extremities no edema moves all extremities spontaneously Results - Labs CBC & Chem 7: 11/05/17 06:30 11/05/17 06:30 Laboratory Results - last 24 hr 11/04/17 11/04/17 11/04/17 15:50 15:50 15:50 WBC 4.7 RBC 3.96 L Hgb 12.6 L Hct 37.6 L MCV 94.9 MCH 31.9 MCHC 33.6 RDW 15.5 Plt Count 174 D MPV 8.0 Neut % (Auto) 65.9 Lymph % (Auto) 15.7 [place] % (Auto) 8.6 H Eos % (Auto) 7.7 H Baso % (Auto) 2.1 H Neut # (Auto) 3.1 Lymph # (Auto) 0.7 L [place] # (Auto) 0.4 Eos # (Auto) 0.4 Baso # (Auto) 0.1 WBC Differential . Differential Comment Auto diff final Sodium 135 L Potassium 3.9 Chloride 101 Carbon Dioxide 22.2 Anion Gap 12 BUN 4 L Creatinine 1.04 Estimated GFR 73 L POC Glucose Random Glucose 92 Lactic Acid Calcium 8.4 L Total Bilirubin 0.4 AST 46 H ALT 20 Alkaline Phosphatase 140 H Total Protein 7.0 Albumin 3.2 L Lipase 212 Urine Color Urine Clarity Urine pH Ur Specific [place] Urine Protein Urine Glucose (UA) Urine Ketones Urine Occult Blood Urine Nitrate Urine Bilirubin Urine Urobilinogen Ur Leukocyte Esterase Urine RBC Urine WBC Micro UA Comment Ur Microscopic Review Urine Culture Comments 11/04/17 11/04/17 11/04/17 15:50 20:07 21:04 WBC RBC Hgb Hct MCV MCH MCHC RDW Plt Count MPV Neut % (Auto) Lymph % (Auto) [place] % (Auto) Eos % (Auto) Baso % (Auto) Neut # (Auto) Lymph # (Auto) [place] # (Auto) Eos # (Auto) Baso # (Auto) WBC Differential Differential Comment Sodium Potassium Chloride Carbon Dioxide Anion Gap BUN Creatinine Estimated GFR POC Glucose 111 H Random Glucose Lactic Acid 0.9 Calcium Total Bilirubin AST ALT Alkaline Phosphatase Total Protein Albumin Lipase Urine Color Yellow Urine Clarity Clear Urine pH 5.0 Ur Specific [place] 1.008 Urine Protein Negative Urine Glucose (UA) Negative Urine Ketones Trace H Urine Occult Blood Small H Urine Nitrate Negative Urine Bilirubin Negative Urine Urobilinogen Less than 2 Ur Leukocyte Esterase Negative Urine RBC Less than 1 Urine WBC 1 Micro UA Comment Culture not ind Ur Microscopic Review Not Reportable Urine Culture Comments Culture not ind 11/05/17 11/05/17 06:30 06:30 WBC 4.0 RBC 3.67 L Hgb 11.6 L Hct 34.1 L MCV 92.9 MCH 31.5 MCHC 33.9 RDW 15.7 Plt Count 148 L MPV 8.3 Neut % (Auto) 56.9 Lymph % (Auto) 24.1 [place] % (Auto) 9.7 H Eos % (Auto) 7.1 H Baso % (Auto) 2.2 H Neut # (Auto) 2.3 Lymph # (Auto) 1.0 [place] # (Auto) 0.4 Eos # (Auto) 0.3 Baso # (Auto) 0.1 WBC Differential . Differential Comment Auto diff final Sodium 138 Potassium 3.6 Chloride 104 Carbon Dioxide 23.6 Anion Gap 10 BUN 4 L Creatinine 1.02 Estimated GFR 75 L POC Glucose Random Glucose 90 Lactic Acid Calcium 7.7 L Total Bilirubin AST ALT Alkaline Phosphatase Total Protein Albumin Lipase Urine Color Urine Clarity Urine pH Ur Specific [place] Urine Protein Urine Glucose (UA) Urine Ketones Urine Occult Blood Urine Nitrate Urine Bilirubin Urine Urobilinogen Ur Leukocyte Esterase Urine RBC Urine WBC Micro UA Comment Ur Microscopic Review Urine Culture Comments Microbiology 11/04/17 15:50 Blood - Peripheral Aerobic Blood Culture - Preliminary No growth in 1 day 11/04/17 15:50 Blood - Peripheral Anaerobic Blood Culture - Preliminary No growth in 1 day 11/04/17 15:55 Blood - Peripheral Aerobic Blood Culture - Preliminary No growth in 1 day 11/04/17 15:55 Blood - Peripheral Anaerobic Blood Culture - Preliminary No growth in 1 day - Imaging Impressions Chest X-Ray 11/04/17 15:48 CONCLUSION: Persistent right perihilar soft tissue density which appears stable to slightly decreased in size as compared to the prior CT. No new parenchymal abnormality seen. Knee X-Ray 11/05/17 00:00 CONCLUSION: Mild degenerative changes as described above. Lumbar Spine MRI 11/05/17 00:00 CONCLUSION: 1. Some evidence of increased metastatic disease to bone with new focus in L1 2. Severe canal stenosis related to dorsal bony retropulsion and disc protrusion at L3-4 which appears grossly unchanged Pelvis MRI 11/05/17 00:00 CONCLUSION: Findings of extensive osseous metastatic disease as above. Avascular necrosis versus metastatic disease left femoral head Shoulder X-Ray 11/05/17 00:00 CONCLUSION: 1. Destructive process in the distal aspect of the right clavicle with a mottled appearance along the lateral border of the scapula concerning for metastatic disease. These were present previously. 2. Slight expansile process in the lateral aspect of rib #7 on the right. Diagnostic considerations include an old healed rib fracture or additional metastatic deposit. This was present as well previously. 3. Proximal humerus remains intact. Assessment and Plan - Plan This is a 49-year-old male with a history of metastatic breast cancer to the thoracic and lumbar spine, right pelvis and lymph nodes, hypertension and diabetes mellitus. He presents to the emergency room complaining of severe pain involving the right pelvis. No recent fall. Patient is on chronic narcotic on long-acting morphine 50 mg twice a day and Percocet 10 mg every 4-6 hours. Intractable pain with a history of metastatic breast cancer to the thoracic and lumbar spine, right pelvis and left nodes. - Continue long-acting morphine sulfate 50 mg twice a day, Percocet 10 mg every 4 hours and IV morphine 4 mg every 4 hours for breakthrough pain. - Oncology, Palliative care ff - get a head CT Constipation - continue bowel regimen Hypertension. Not well controlled secondary to pain. Resume hydrochlorothiazide and to monitor Diabetes mellitus. Continue metformin and monitor fingersticks and sliding scale coverage. DVT prophylaxis with subcu heparin. asking for some food supplements - start on Glcuerna- - dietitian consult ADD: fever 101- clincially ooks good recent chemotherapy- WBC this am good get 2 sets of blood cultures- 1 periopheral and 1 from port give x1 IV Vanco after cultures sent
--- NOTE | 2017-11-05 14:31 | CT ---
EXAM DATE: 11/05/2017 2:00 PM EDT AGE/SEX: 57 years / Male INDICATIONS: Cephalgia. Evaluate for metastatic disease. CLINICAL DATA: This is the patient's initial encounter. Patient reports that signs and symptoms have been present for 1 day and indicates a pain score of 2/10. MEDICAL/SURGICAL HISTORY: Carcinoma, breast. Renal cell carcinoma. Hypertension. Mastectomy, bila teral. Nephrectomy RADIATION DOSE: 56.35 CTDI (mGy) COMPARISON: No prior exams available for comparison. TECHNIQUE: Axial images of the head were acquired without contrast and after intravenous administrat ion of 75 ml Visipaque 320 (iodixanol) nonionic water-soluble contrast as a single exam dose. Usin g automated exposure control and adjustment of the mA and/or kV according to patient size, radiation dose was kept as low as reasonably achievable to obtain optimal diagnostic quality images. DICOM for mat image data is available electronically for review and comparison. FINDINGS: Cerebrum: The ventricles are normal for age. No evidence of midline shift, mass lesion, hemorrhage or acute infarction. No extraaxial fluid collections are seen. Posterior Fossa: The cerebellum and brainstem are intact. The 4th ventricle is midline. The cerebe llopontine angle is unremarkable. Extracranial: The visualized portion of the orbits is intact. Skull: The calvaria is intact. No evidence of skull fracture. Post Contrast: No abnormal areas of parenchymal or dural enhancement. No evidence of blood-brain ba rrier breakdown. CONCLUSION: Negative CT Head with and without contrast. Electronically signed by: Easton Bergman MD 11/05/2017 2:30 PM EDT
--- NOTE | 2017-11-05 16:32 | P.DIET ---
Nutritional Evaluation Type of nutrition evaluation: initial Nutrition consult regarding: Diet Evaluation (MDC for Supplement to Oral Intake) Subjective Subjective Comments: Pt states he has several missing teeth and he will need some pulled, but this is not causing issues w/ chewing food. No trouble swallowing. He says his taste buds are more enhanced when eating certain foods, like salty things. He admits to being afraid to eat solid food b/c he is so constipated and feels discomfort and nausea after eating. At home he says he's been sitting in his recliner chair all day, but he has family in his home who made sure he ate and drank fluids. He says he had Ensure TID at home, but wants the Glucerna Shakes TID here. Requesting water bottle on each meal tray. C/o significant nausea, occasional vomiting, and severe constipation w/ no relief w/ medications. Says TTY=[id number]#. Objective - Diagnosis Intractable Pain, Metastatic Breast Cancer to Bone - Objective % IBW: 162 (HCC=316#) Body Weight Used for Calculations: Upper end of IBW (86kg) Energy Needs - Lower Range (kCal/kg): 28 Energy Needs - Upper Range (kCal/kg): 32 Lower Limit kCal/kg (kCals): 2,408 Upper Limit kCal/kg (kCals): 2,752 Lower Limit Protein Factor (Grams per Kg): 1.2 Upper Limit Protein Factor (Grams per Kg): 1.5 Lower Protein Needs (Protein): 103 Upper Protein Needs (Protein): 129 Fluid Factor (ml/kg): 30 Estimated Fluid Needs (ml): 2,580 Dietitian Reviewed in Medical Record: Current diet, Curent medications, Intake & Output, Labs, Medical history Diet Order: Heart Healthy, 1999ADA Objective Comments: Meds: Metformin Labs: AccuCheck 111 (-) BM recorded L metastatic breast cancer-> 1st dose Abraxane on 11/03 Feeding - Current PO Supplement Current Supplement: Glucerna Shake Current Frequency of Supplement: Three times a day Current kCals Provided by Supplement: 220 Current Protein Provided by Supplement: 10 Assessment Assessment: Pt admitted for intractable pain and metastatic breast cancer to bones. He is at 162% of his IBW. C/o ~100# wt loss since initial breast cancer diagnosis. He has not been eating well per my interview w/ him, mainly b/c he's so constipated he's been avoiding solid foods. Has been drinking fluids and has requested a water bottle on each tray. Current diet is for a heart healthy, 2000ADA diet. I would actually recommend a 2500ADA diet to better meet his increased nutritional requirements. I think he would be okay w/out the heart healthy diet restriction. BG levels reviewed, pt is on Metformin. No A1C available, reviewed previous glucose levels from recent visits/follow ups. Continue Glucerna Shakes TID as pt is drinking them. We discussed options to eat w/ his constipation. He states he does not want to do anything until his constipation is under control. Will continue to monitor. Recommendations: 1. Recommend 2500ADA diet to better meet his increased nutritional requirements. 2. Continue Glucerna Shakes TID. 3. Provided food options for pt to have since he's experiencing severe constipation, will f/u. Dietitian to Monitor: Lab values, Supplement acceptance, Intake & Output, Diet tolerance, Weight change, PO Intake, Medical course
[2017-11-05] MEDS: Insulin NovoLOG Aspart Correctional Sugar Inj SQ SCH ×4 (16:36→21:37)
[2017-11-05] MEDS ORDERED: Vancomycin Inj 1 GM/200 ML PIGGYBACK IV.SIG ONE (17:16)
[2017-11-05] MEDS ORDERED: Vancomycin Inj 1,000 MG in Sodium Chlor 0.9% Inj 250 ML IV.SIG ONE (18:00)
[2017-11-05] MEDS: Lidocaine 5% Patch T-DERMAL SCH (21:15)
[2017-11-06] MEDS: oxyCODONE/Acetaminophen 10/325 Tablet PO PRN (05:00)
[2017-11-06] MEDS: Sod Chloride 0.9% Inj 1,000 ML IV.CONT SCH ×2 (05:01→13:03)
[2017-11-06 05:27] LABS: Baso % (Auto) 1.2 % (0.0-2.0); Eos # (Auto) 0.2 th/mm3 (0.0-0.4); Eos % (Auto) 8.2 % (0.0-4.0); Hematocrit 32.6 % (39.0-51.0); Lymph # (Auto) 0.6 th/mm3 (1.0-4.8); Mean Corpuscular HGB Conc 33.7 % (32.0-36.0); Mean Corpuscular Hemoglobin 31.6 pg (27.0-34.0); Mean Corpuscular Volume 93.8 fL (80.0-100.0); Mean Platelet Volume 8.2 fL (7.0-11.0); Mono # (Auto) 0.2 th/mm3 (0.0-0.9); Mono % (Auto) 9.1 % (0.0-8.0); Neut # (Auto) 1.6 th/mm3 (1.8-7.7); Neut % (Auto) 60.5 % (16.0-70.0); Platelet Count 142 th/mm3 (150-450); Red Blood Count 3.48 mil/mm3 (4.50-5.90); Red Cell Distribution Width 15.8 % (11.6-17.2); White Blood Count 2.6 th/mm3 (4.0-11.0)
[2017-11-06] MEDS: Morphine Inj 4 MG/ML Vial IV.PUSH PRN ×4 (07:16→22:27)
[2017-11-06] MEDS: Morphine Sulfate 30 MG SR Tablet PO SCH ×2 (08:36→21:22)
[2017-11-06] MEDS: hydroCHLOROthiazide 25 MG Tablet PO SCH (08:36)
[2017-11-06] MEDS: Ferrous Sulfate 325 MG Tablet PO SCH ×2 (08:37→21:22)
[2017-11-06] MEDS: Senna/Docusate Sodium 8.6/50 MG Tablet PO SCH ×2 (08:38→21:22)
[2017-11-06] MEDS: Insulin NovoLOG Aspart Correctional Sugar Inj SQ SCH ×4 (11:07→22:50)
--- NOTE | 2017-11-06 12:39 | P.PN ---
Subjective Interval history: T down pain relief only with IV Morphine states had a small BM yesterday- Physical Exam Vital signs: Vital Signs 11/05/17 13:14 11/05/17 14:53 11/05/17 17:10 Temperature 101 F H Pulse Rate 105 H 100 H Respiratory Rate 20 Blood Pressure 112/66 Pulse Oximetry 97 96 11/05/17 18:00 11/05/17 20:00 11/05/17 20:08 Temperature 99.1 F Pulse Rate 105 H 98 H 97 H Respiratory Rate 20 Blood Pressure 115/73 Pulse Oximetry 93 L 11/06/17 00:00 11/06/17 00:02 11/06/17 04:00 Temperature 98.1 F 98.1 F Pulse Rate 97 H 93 H 97 H Respiratory Rate 18 18 Blood Pressure 121/77 104/63 Pulse Oximetry 94 L 92 L 11/06/17 04:06 11/06/17 08:00 11/06/17 08:38 Temperature 98.7 F Pulse Rate 100 H 102 H Respiratory Rate 16 20 Blood Pressure 110/41 L Pulse Oximetry 93 L 11/06/17 11:07 Temperature Pulse Rate Respiratory Rate 20 Blood Pressure Pulse Oximetry Intake & Output 11/05/17 11/06/17 11/06/17 18:59 06:59 18:59 Intake Total 1000 / 1000 1969 / 1970 Output Total 2600 / 2600 Balance 1000 / 1000 -630 / -630 Weight 126.7 kg Intake: IV 1000 / 1000 1250 / 1250 NS Inj 1,000 ML @ 100 mls/hr IV 1000 / 1000 1000 / 1000 .CONT .Q10H WILI Rx#:[id number] Vancomycin Inj 1,000 MG In NS 250 / 250 Inj 250 ML @ 250 mls/hr IV.SIG ONCE ONE Rx#:[id number] Oral 720 / 720 Output: Urine 2600 / 2600 Other: Date of Last Bowel Movement 11/05/17 11/05/17 Narrative: awake and alert, oriented x 3, speech clear anicteric neck supple, lungs- no rales regular rhythm abdomen- flabby, soft, good bowel sounds extremities no edema moves all extremities spontaneously no calf swelling or tenderness Results - Labs CBC & Chem 7: 11/06/17 05:00 11/05/17 06:30 Laboratory Results - last 24 hr 11/05/17 11/05/17 11/06/17 16:55 21:29 05:00 WBC 2.6 L RBC 3.48 L Hgb 11.0 L Hct 32.6 L MCV 93.8 MCH 31.6 MCHC 33.7 RDW 15.8 Plt Count 142 L MPV 8.2 Neut % (Auto) 60.5 Lymph % (Auto) 21.0 [place] % (Auto) 9.1 H Eos % (Auto) 8.2 H Baso % (Auto) 1.2 Neut # (Auto) 1.6 L Lymph # (Auto) 0.6 L [place] # (Auto) 0.2 Eos # (Auto) 0.2 Baso # (Auto) 0.0 WBC Differential . Differential Comment Auto diff final POC Glucose 102 117 H 11/06/17 08:35 WBC RBC Hgb Hct MCV MCH MCHC RDW Plt Count MPV Neut % (Auto) Lymph % (Auto) [place] % (Auto) Eos % (Auto) Baso % (Auto) Neut # (Auto) Lymph # (Auto) [place] # (Auto) Eos # (Auto) Baso # (Auto) WBC Differential Differential Comment POC Glucose 119 H Microbiology 11/05/17 18:00 Blood - Other Aerobic Blood Culture - Preliminary No growth in 1 day 11/05/17 18:00 Blood - Other Anaerobic Blood Culture - Preliminary No growth in 1 day 11/05/17 18:00 Blood - Other Aerobic Blood Culture - Preliminary No growth in 1 day 11/05/17 18:00 Blood - Other Anaerobic Blood Culture - Preliminary No growth in 1 day 11/04/17 15:50 Blood - Peripheral Aerobic Blood Culture - Preliminary No growth in 2 days 11/04/17 15:50 Blood - Peripheral Anaerobic Blood Culture - Preliminary No growth in 2 days 11/04/17 15:55 Blood - Peripheral Aerobic Blood Culture - Preliminary No growth in 2 days 11/04/17 15:55 Blood - Peripheral Anaerobic Blood Culture - Preliminary No growth in 2 days - Imaging Impressions Head CT 11/05/17 00:00 CONCLUSION: Negative CT Head with and without contrast. Pelvis MRI 11/05/17 00:00 CONCLUSION: Findings of extensive osseous metastatic disease as above. Avascular necrosis versus metastatic disease left femoral head Assessment and Plan - Plan This is a 49-year-old male with a history of metastatic breast cancer to the thoracic and lumbar spine, right pelvis and lymph nodes, hypertension and diabetes mellitus. He presents to the emergency room complaining of severe pain involving the right pelvis. No recent fall. Patient is on chronic narcotic on long-acting morphine 50 mg twice a day and Percocet 10 mg every 4-6 hours. Intractable pain with a history of metastatic breast cancer to the thoracic and lumbar spine, right pelvis and left nodes. - Continue long-acting morphine sulfate 50 mg twice a day, Percocet 10 mg every 4 hours and IV morphine 4 mg every 4 hours for breakthrough pain. - Oncology, Palliative care ff - head CT negtive Constipation - continue bowel regimen - relistor Hypertension. Not well controlled secondary to pain. Resume hydrochlorothiazide and to monitor Diabetes mellitus. Continue metformin and monitor fingersticks and sliding scale coverage. DVT prophylaxis with subcu heparin. asking for some food supplements - start on Glcuerna- - dietitian ff Fever 101-yesterday - now T down Neutropenia recent chemotherapy- WBC low with ANC 1.6 ff cultures- drawn from yesterday- so far negarive, UA negative d/w Oncology-[employer] received IV Vancomycin 11/05. start Vancomycin with neutropenia Palliative care service ff
[2017-11-06] MEDS ORDERED: Vancomycin Inj 1 GM/200 ML PIGGYBACK IV.SIG SCH (13:00)
[2017-11-06] MEDS: Heparin - SQ 10,000 UNITS/ML Vial SQ SCH ×2 (13:03→21:59)
--- NOTE | 2017-11-06 13:35 | P.CON ---
History of Present Illness Service: radiation oncology Reason for Consult: bone pain from metastases, role for xrt Primary Care Provider: Guanaco Avila History of Present Illness: Mr. Sorenson with right clavicle pain. With right hip and leg to right knee pain and left hip pain. Inpatient for pain control. Prior xrt left chest wall Dr. Kaminski. [facility] - History History Provided By: Patient, Medical Record - Medical History Medical History: Medical History (Last Reviewed 11/06/17 @ 07:50 by Guanaco Amin) Diabetes mellitus (Chronic) Obesity (Acute) Breast cancer in male (Acute) Hypertension Bone cancer Cancer of kidney - Surgical History Surgical History: Surgical History (Last Reviewed 11/06/17 @ 07:50 by Guanaco Amin) H/O bilateral mastectomy H/O kidney removal - Family History Family History: Family History (Last Updated 11/05/17 @ 18:09 by Tony Simon MD) Sister Family history of breast cancer Mother Family history of breast cancer Father Family history of heart disease Brother Motorcycle accident - Tobacco History Second Hand Smoke Exposure: No Tobacco Use In Past 30 Days: No Smoking Status: Former smoker Tobacco Type: Cigarettes Packs Per Day: 1 Years Smoked: 12 Smoking End Date: Over 20 years ago - Alcohol History How Often Do You Have a Drink Containing Alcohol: Never - Substance Use History Substance History: Past History - Substance Use Type Alcohol Status: Sustained Remission Route Used: By Mouth Last Used: Patient stopped alcohol around 2012 when he was diagnosed with cancer - Travel History History of Recent Travel: No Recent Travel in the [place] Within the Last 8 Weeks: No Recent Travel Out of the Country Within the Last 8 Weeks: No - Immunization History Tetanus Immunization: Unsure Hx Influenza Vaccine This Season: No Medications and Allergies Active Medications: Active Medications Acetaminophen (Tylenol) 650 mg PO Q4H PRN PRN Reason: Temp > 100.4 Last Admin: 11/05/17 17:06 Dose: 650 mg Al Hydroxide/Mg Hydroxide (Milk Of Magnesia Liq) 30 ml PO Q12H PRN PRN Reason: Mild Constipation Bisacodyl (Dulcolax Supp) 10 mg RECTAL DAILY PRN PRN Reason: SEVERE CONSITIPATION Dexamethasone (Decadron) 4 mg PO DAILY [facility] Last Admin: 11/06/17 08:37 Dose: 4 mg Dextrose (D50w Vial) 50 ml IV.PUSH UNSCH PRN PRN Reason: PER HYPOGLYCEMIA PROTOCOL Ferrous Sulfate (Ferosul) 325 mg PO BID [facility] Last Admin: 11/06/17 08:37 Dose: 325 mg Glucagon (Glucagon Inj) 1 mg OTHER PRN PRN PRN Reason: for Hypoglycemia Protocol Heparin Sodium (Porcine) (Heparin Inj) 5,000 units SQ Q12HR [facility] Last Admin: 11/06/17 13:03 Dose: 5,000 units Hydrochlorothiazide (Hydrodiuril) 25 mg PO DAILY [facility] Last Admin: 11/06/17 08:36 Dose: 25 mg Sodium Chloride (Ns Inj) 1,000 mls @ 100 mls/hr IV.CONT .Q10H [facility] Last Admin: 11/06/17 13:03 Dose: 100 mls/hr Vancomycin HCl 1,000 mg/ (Sodium Chloride) 250 mls @ 250 mls/hr IV.SIG Q12H [facility] Insulin Aspart (Novolog Insulin Correctional Sugar Inj) 0 unit SQ ACHS [facility]; Protocol Last Admin: 11/06/17 13:04 Dose: Not Given Lactulose (Lactulose Liq) 30 ml PO TID PRN PRN Reason: SEVERE CONSITIPATION Last Admin: 11/06/17 05:00 Dose: 30 ml Lidocaine HCl (Lidoderm 5% Patch.12 Hr) 2 patch T-DERMAL Q24H [facility] Last Admin: 11/05/17 21:15 Dose: 2 patch Metformin HCl (Glucophage) 500 mg PO DAILY [facility] Last Admin: 11/06/17 08:37 Dose: 500 mg Morphine Sulfate (Morphine Inj) 4 mg IV.PUSH Q3H PRN PRN Reason: BREAKTHROUGH PAIN Last Admin: 11/06/17 07:16 Dose: 4 mg Morphine Sulfate (Oramorph Sr) 30 mg PO BID [facility] Last Admin: 11/06/17 08:36 Dose: 30 mg Naloxone HCl (Narcan Inj) 0.4 mg IV.PUSH UNSCH PRN PRN Reason: SEE LABEL COMMENTS Ondansetron HCl (Zofran Inj) 4 mg IV.PUSH Q6H PRN PRN Reason: NAUSEA OR VOMITING Last Admin: 11/06/17 08:45 Dose: 4 mg Oxycodone/Acetaminophen (Percocet 10/325 Mg) 1 tab PO Q4H PRN PRN Reason: PAIN SCALE 1 TO 10 Last Admin: 11/06/17 05:00 Dose: 1 tab Pantoprazole Sodium (Protonix) 40 mg PO DAILY [facility] Last Admin: 11/06/17 08:38 Dose: 40 mg Patch Removal (Remove Old Patch) 1 each T-DERMAL DAILY [facility] Last Admin: 11/05/17 16:40 Dose: 1 each Patient Own: ( Capecitabine [Xeloda ] 2,500 Mg) 0 each PO BID [facility] Senna/Docusate Sodium (Mary-Colace) 1 tab PO BID [facility] Last Admin: 11/06/17 08:38 Dose: 1 tab Sennosides (Senokot) 17.2 mg PO Q12H PRN PRN Reason: Moderate Constipation Sodium Chloride (Ns Flush) 2 ml IV.FLUSH PRN PRN PRN Reason: FLUSH AFTER USING IV ACCESS Allergies Allergy/AdvReac Type Severity Reaction Status Date / Time oxytetracycline Allergy Severe Anaphylaxis Verified 11/04/17 15:36 Home Medications Medication Instructions Recorded Confirmed Type capecitabine [Xeloda] 2,500 mg PO Q12H 09/05/17 11/04/17 History ferrous sulfate [Iron (ferrous 325 mg PO BID 09/05/17 11/04/17 History sulfate)] hydrochlorothiazide 25 mg PO DAILY 09/05/17 11/04/17 History metformin 500 mg PO DAILY 09/05/17 11/04/17 History morphine 30 mg PO BID 09/23/17 11/04/17 History oxycodone-acetaminophen 1 tab PO Q4-6H PRN 09/23/17 11/04/17 History Physical Exam Vital signs: Vital Signs 11/05/17 14:53 11/05/17 17:10 11/05/17 18:00 Temperature 101 F H Pulse Rate 105 H 100 H 105 H Respiratory Rate 20 Blood Pressure 112/66 Pulse Oximetry 96 11/05/17 20:00 11/05/17 20:08 11/06/17 00:00 Temperature 99.1 F 98.1 F Pulse Rate 98 H 97 H 97 H Respiratory Rate 20 18 Blood Pressure 115/73 121/77 Pulse Oximetry 93 L 94 L 11/06/17 00:02 11/06/17 04:00 11/06/17 04:06 Temperature 98.1 F Pulse Rate 93 H 97 H 100 H Respiratory Rate 18 Blood Pressure 104/63 Pulse Oximetry 92 L 11/06/17 08:00 11/06/17 08:38 11/06/17 11:07 Temperature 98.7 F Pulse Rate 102 H Respiratory Rate 16 20 20 Blood Pressure 110/41 L Pulse Oximetry 93 L Intake & Output 11/05/17 11/06/17 11/06/17 18:59 06:59 18:59 Intake Total 1000 / 1000 1970 / 1970 1000 / 1000 Output Total 2600 / 2600 Balance 1000 / 1000 -630 / -630 1000 / 1000 Weight 126.7 kg Intake: IV 1000 / 1000 1250 / 1250 1000 / 1000 NS Inj 1,000 ML @ 100 mls/hr IV 1000 / 1000 1000 / 1000 1000 / 1000 .CONT .Q10H [facility] Rx#:[id number] Vancomycin Inj 1,000 MG In NS 250 / 250 Inj 250 ML @ 250 mls/hr IV.SIG ONCE ONE Rx#:[id number] Oral 720 / 720 Output: Urine 2600 / 2600 Other: Date of Last Bowel Movement 11/05/17 11/05/17 Assessment and Plan - Assessment (1) 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 Also to right femur and hip and pelvis.
[2017-11-06] MEDS: Vancomycin Inj 1,000 MG in Sodium Chlor 0.9% Inj 250 ML IV.SIG SCH (14:00)
--- NOTE | 2017-11-06 14:19 | P.PNONC ---
Subjective Interval history: T-max 101F. Patient with complaints of shoulder and hip pain. He reports his pain is worse today than yesterday. He is also constipated and feels that this is contributing to his pain. He was concurrently seen by palliative care and they reassured him that they would evaluate his medications in order something for constipation. Objective Vital Signs/Intake & Output: Vital Signs 11/05/17 14:53 11/05/17 17:10 11/05/17 18:00 Temperature 101 F H Pulse Rate 105 H 100 H 105 H Respiratory Rate 20 Blood Pressure 112/66 Pulse Oximetry 96 11/05/17 20:00 11/05/17 20:08 11/06/17 00:00 Temperature 99.1 F 98.1 F Pulse Rate 98 H 97 H 97 H Respiratory Rate 20 18 Blood Pressure 115/73 121/77 Pulse Oximetry 93 L 94 L 11/06/17 00:02 11/06/17 04:00 11/06/17 04:06 Temperature 98.1 F Pulse Rate 93 H 97 H 100 H Respiratory Rate 18 Blood Pressure 104/63 Pulse Oximetry 92 L 11/06/17 08:00 11/06/17 08:38 11/06/17 11:07 Temperature 98.7 F Pulse Rate 102 H Respiratory Rate 16 20 20 Blood Pressure 110/41 L Pulse Oximetry 93 L Intake & Output 11/05/17 11/06/17 11/06/17 18:59 06:59 18:59 Intake Total 1000 / 1000 1969 / 1969 1000 / 1000 Output Total 2600 / 2600 Balance 1000 / 1000 -630 / -630 1000 / 1000 Weight 126.7 kg Intake: IV 1000 / 1000 1250 / 1250 1000 / 1000 NS Inj 1,000 ML @ 100 mls/hr IV 1000 / 1000 1000 / 1000 1000 / 1000 .CONT .Q10H [facility] Rx#:[id number] Vancomycin Inj 1,000 MG In NS 250 / 250 Inj 250 ML @ 250 mls/hr IV.SIG ONCE ONE Rx#:[id number] Oral 720 / 720 Output: Urine 2600 / 2600 Other: Date of Last Bowel Movement 11/05/17 11/05/17 Result Diagrams: 11/06/17 05:00 11/05/17 06:30 Laboratory Results: Laboratory Results - last 24 hr 11/05/17 11/05/17 11/06/17 16:55 21:29 05:00 WBC 2.6 L RBC 3.48 L Hgb 11.0 L Hct 32.6 L MCV 93.8 MCH 31.6 MCHC 33.7 RDW 15.8 Plt Count 142 L MPV 8.2 Neut % (Auto) 60.5 Lymph % (Auto) 21.0 [place] % (Auto) 9.1 H Eos % (Auto) 8.2 H Baso % (Auto) 1.2 Neut # (Auto) 1.6 L Lymph # (Auto) 0.6 L [place] # (Auto) 0.2 Eos # (Auto) 0.2 Baso # (Auto) 0.0 WBC Differential . Differential Comment Auto diff final POC Glucose 102 117 H 11/06/17 11/06/17 08:35 13:01 WBC RBC Hgb Hct MCV MCH MCHC RDW Plt Count MPV Neut % (Auto) Lymph % (Auto) [place] % (Auto) Eos % (Auto) Baso % (Auto) Neut # (Auto) Lymph # (Auto) [place] # (Auto) Eos # (Auto) Baso # (Auto) WBC Differential Differential Comment POC Glucose 119 H 114 H Culture Results: Microbiology 11/05/17 18:00 Aerobic Blood Culture - Preliminary Blood - Other No growth in 1 day Anaerobic Blood Culture - Preliminary No growth in 1 day 11/05/17 18:00 Aerobic Blood Culture - Preliminary Blood - Other No growth in 1 day Anaerobic Blood Culture - Preliminary No growth in 1 day 11/04/17 15:50 Aerobic Blood Culture - Preliminary Blood - Peripheral No growth in 2 days Anaerobic Blood Culture - Preliminary No growth in 2 days 11/04/17 15:55 Aerobic Blood Culture - Preliminary Blood - Peripheral No growth in 2 days Anaerobic Blood Culture - Preliminary No growth in 2 days Imaging Studies: Impressions Head CT 11/05/17 00:00 CONCLUSION: Negative CT Head with and without contrast. Medications: Active Medications Generic Name Dose Route Start Last Admin Trade Name Freq PRN Reason Stop Dose Admin Acetaminophen 650 mg 11/04/17 18:29 11/05/17 17:06 Tylenol PO 650 mg Q4H PRN Administration Temp > 100.4 Dexamethasone 4 mg 11/06/17 09:00 11/06/17 08:37 Decadron PO 4 mg DAILY [facility] Administration Ferrous Sulfate 325 mg 11/04/17 21:00 11/06/17 08:37 Ferosul PO 325 mg BID [facility] Administration Heparin Sodium (Porcine) 5,000 units 11/04/17 21:00 11/06/17 13:03 Heparin Inj SQ 5,000 units Q12HR [facility] Administration Hydrochlorothiazide 25 mg 11/05/17 09:00 11/06/17 08:36 Hydrodiuril PO 25 mg DAILY [facility] Administration Sodium Chloride 1,000 mls @ 100 mls/hr 11/04/17 18:30 11/06/17 13:03 Ns Inj IV.CONT 100 mls/hr .Q10H [facility] Administration Insulin Aspart 0 unit 11/04/17 21:00 11/06/17 13:04 Novolog Insulin Correctional Sugar Inj SQ Not Given ACHS [facility] Protocol Lactulose 30 ml 11/05/17 07:26 11/06/17 05:00 Lactulose Liq PO 30 ml TID PRN Administration SEVERE CONSITIPATION Lidocaine HCl 2 patch 11/04/17 21:00 11/05/17 21:15 Lidoderm 5% Patch.12 Hr T-DERMAL 2 patch Q24H [facility] Administration Metformin HCl 500 mg 11/05/17 09:00 11/06/17 08:37 Glucophage PO 500 mg DAILY [facility] Administration Morphine Sulfate 4 mg 11/04/17 18:31 11/06/17 07:16 Morphine Inj IV.PUSH 4 mg Q3H PRN Administration BREAKTHROUGH PAIN Morphine Sulfate 30 mg 11/04/17 21:00 11/06/17 08:36 Oramorph Sr PO 30 mg BID [facility] Administration Ondansetron HCl 4 mg 11/04/17 18:29 11/06/17 08:45 Zofran Inj IV.PUSH 4 mg Q6H PRN Administration NAUSEA OR VOMITING Oxycodone/Acetaminophen 1 tab 11/04/17 18:48 11/06/17 05:00 Percocet 10/325 Mg PO 1 tab Q4H PRN Administration PAIN SCALE 1 TO 10 Pantoprazole Sodium 40 mg 11/06/17 09:00 11/06/17 08:38 Protonix PO 40 mg DAILY [facility] Administration Patch Removal 1 each 11/05/17 09:00 11/05/17 16:40 Remove Old Patch T-DERMAL 1 each DAILY [facility] Administration Senna/Docusate Sodium 1 tab 11/04/17 21:00 09/07/18 08:38 Mary-Colace PO 1 tab BID [facility] Administration Objective Remarks: GENERAL: Obese male patient, who appears older than stated age, lying in bed in no acute distress. SKIN: Warm and dry. HEAD: Normocephalic. EYES: No scleral icterus. No injection or drainage. NECK: Supple, trachea midline. CARDIOVASCULAR: Regular rate and rhythm without murmurs. RESPIRATORY: Anterior breath sounds distant, equal bilaterally. No accessory muscle use. GASTROINTESTINAL: Abdomen soft, non-tender, nondistended. EXTREMITIES: No cyanosis, or edema. MUSCULOSKELETAL: Adequate muscle tone. NEUROLOGICAL: No obvious focal deficit. Awake, alert, and oriented x3. PSYCHIATRIC: Agitated mood; insight and judgment normal. Assessment/Plan - Plan This is a 57-year-old gentleman with metastatic breast cancer. He was first diagnosed with left breast cancer in 2012, he had a bilateral mastectomy. Pathology showed a 6.5 cm infiltrating ductal carcinoma, moderately differentiated with 2/8 lymph nodes positive for metastatic disease. Hormone receptor positive, HER-2 negative. Treated with dose-dense chemotherapy followed by chest wall radiation. Patient was on tamoxifen until he developed metastatic bone disease in 2016. PET scan showed hypermetabolic lesion thoracic spine, lumbar spine, left iliac wing and ribs. He also developed subcutaneous metastatic nodule. Biopsy of the left iliac bone lesion showed metastatic poorly differentiated carcinoma consistent with breast primary. This was hormone receptor +. He was treated with Xeloda October 2016 and had good response, recently he developed progression of bone disease and was started on Taxol. He had 2 infusions of Taxol before developing an allergic infusion reaction. He stopped the Taxol for about 2 weeks. He has recently received his first cycle of Abraxane. Patient was admitted to the hospital for intractable bone pain due to metastatic disease. Plan: 1. Metastatic breast cancer, status post first cycle of Abraxane. Continue to monitor. 2. Intractable pain related to bone metastasis. MRI shoulder and pelvis without acute fractures, metastatic disease noted same as previous imaging. MRI lumbar spine shows some evidence of increased metastatic disease to bone with new focus in L1, severe canal stenosis related to dorsal bony retropulsion and disc protrusion at L3-4 which appears grossly unchanged. 3. Continue pain medications as needed. We appreciate palliative care's assistance with pain and symptom control. 4. Neutropenia with fever, T-max 101F. Patient on vancomycin. Blood cultures thus far negative. We will continue to monitor and treat accordingly. 5. We have consulted radiation oncology for evaluation for palliative radiation for pain control. - Attending Statement The exam, history, and the medical decision-making described in the above note were completed with the assistance of the mid-level provider. I reviewed and agree with the findings presented. I attest that I had a [id number] encounter with the patient on the same day, and personally performed and documented my assessment and findings in the medical record. Patient still has shoulder pain and hip pain but slightly better control. He has small bowel movement yesterday. Review MRI and x-ray result with patient. Radiologic study again showed diffuse bone metastasis. I have also discussed the case with Dr. maria. Dr. maria is going to arrange for patient to receive palliative radiation. Continue titrate pain medication per palliative care medicine. Continue supportive care.
--- NOTE | 2017-11-06 16:32 | P.PNPAL ---
Reason for Visit Reason for visit: a. To assist with evaluation and management of symptoms including: pain; constipation b. To assist medical decision maker(s) with: better understanding of current medical conditions; weighing benefits/burdens of medical treatment options; making medical treatment decisions. Subjective Subjective/Interval History: Patient seen and examined in room. No family at bedside. Also present Radha Lopez LCSW. Discussed with Laureen B[employer] LANG[employer] PROFESSOR oncology and Dr. Nunez. Patient is awake and alert. He reports constant pain in right hip and right shoulder. Rates pain 8/10. He has intermittent pain in his back, knee and elbow also. Dr. Cordova, radiation oncology was consulted for consideration of palliative radiation to bone mets for pain control. Patient was started on Dexamethasone 4mg PO daily for pain. He remains on Oramorph 30 mg PO every 12 hours. Percocet 10/325 PO every 4 hours PRN BTP (has had 2 doses in the past 24 hours) and Morphine 4mg IV every 3 hours PRN BTP (has had 3 doses in the past 24 hours). He reports more relief with IV Morphine. He The patient continues to struggle with constipation. He had a small BM on and feels he is still not "cleaned out." He tells me the Lactulose he was on at home worked well. Encouraged continued use and reviewed instructions. Advised nurse to give Dulcolax supp and patient agrees. Continue Mary-Colace PO BID. He reports intermittent nausea. Constipation may also be a contributing factor. Relieved with PRN Zofran. Patient wants to focus on constipation and making adjustment from Percocet to Oxycodone (without Tylenol) with dose adjustment today. Will give Oxycodone 10- 15 mg PO every 4 hours PRN BTP. If pain, nausea and constipation are still a problem on Thursday he seems willing to consider changing of long acting Morphine to Methadone. Will reevaluate Thursday. Clinical Data: * Tmax 101, vital signs otherwise stable. * WBC 2.6, Hgb 11, hct 32.6, platelets 142 * 11/05/17 - blood cultures no growth in 1 day. Patient completed designation of Health Care surrogate during this visit. He verbalizes appreciation of time spent today, agrees with plan of care and welcomes continued palliative care visits. Family/Friend Interactions: No family present. Advance Directives Living Will: Never completed Health Care Surrogate: Copy in medical record (Primary: Ban Varma (fiance ) [phone]. Alternate: García Sorenson (nephew) [phone]) Durable Power of Generation Engineer: Never completed Advance Directives Date on File: 11/06/17 Health Care Surrogate Name and Number: Primary: Ban Varma [phone]. Alt García Sorenson [phone] Documented care wishes:: No writtten documentation of health care goals/preferences . Significant change in goals:: FULL CODE. Desires continued aggressive care and adequate symptom management of pain and constipation. Objective Vital Signs: Vital Signs 11/05/17 17:10 11/05/17 18:00 11/05/17 20:00 Temperature 101 F H 99.1 F Pulse Rate 100 H 105 H 98 H Respiratory Rate 20 20 Blood Pressure 112/66 115/73 Pulse Oximetry 96 93 L 11/05/17 20:08 11/06/17 00:00 11/06/17 00:02 Temperature 98.1 F Pulse Rate 97 H 97 H 93 H Respiratory Rate 18 Blood Pressure 121/77 Pulse Oximetry 94 L 11/06/17 04:00 11/06/17 04:06 11/06/17 08:00 Temperature 98.1 F 98.7 F Pulse Rate 97 H 100 H 102 H Respiratory Rate 18 16 Blood Pressure 104/63 110/41 L Pulse Oximetry 92 L 93 L 11/06/17 08:38 11/06/17 11:07 11/06/17 12:00 Temperature 98.7 F Pulse Rate 86 Respiratory Rate 20 20 16 Blood Pressure 128/83 Pulse Oximetry 94 L Intake & Output 11/05/17 11/06/17 11/06/17 18:59 06:59 18:59 Intake Total 1000 / 1000 1970 / 1970 1250 / 1250 Output Total 2600 / 2600 Balance 1000 / 1000 -630 / -630 1250 / 1250 Weight 126.7 kg Intake: IV 1000 / 1000 1250 / 1250 1250 / 1250 NS Inj 1,000 ML @ 100 mls/hr IV 1000 / 1000 1000 / 1000 1000 / 1000 .CONT .Q10H [facility] Rx#:[id number] Vancomycin Inj 1,000 MG In NS 250 / 250 250 / 250 Inj 250 ML @ 250 mls/hr IV.SIG Q12H [facility] Rx#:[id number] Oral 720 / 720 Output: Urine 2600 / 2600 Other: Date of Last Bowel Movement 11/05/17 11/05/17 Physical Exam: CONSTITUTIONAL/GENERAL: This is morbidly obese male with multiple tattoos, pleasant , cooperative, conversant in an oncology floor medical bed. He appears comfortable at rest. There is grimacing with movement. TUBES/LINES/DRAINS: Right chest [id number]. SKIN: Multiple tattoos. No jaundice, rashes, or lesions.No wounds seen anteriorly. Skin temperature appropriate. Not diaphoretic. EYES: Pupils equal and round and reactive. CARDIOVASCULAR: Regular rate and rhythm without murmurs. RESPIRATORY/CHEST: Symmetric, unlabored respirations. Clear to auscultation. Breath sounds equal bilaterally. No wheezes, rales, or rhonchi. GASTROINTESTINAL: Abdomen soft, obese, nondistended. Tenderness on both right and left mid-abdomen. Bowel sounds distant. GENITOURINARY: Without palpable bladder distension. MUSCULOSKELETAL: Extremities without clubbing, cyanosis, or edema. No mottling or clubbing. NEUROLOGICAL: Awake and alert. Motor and sensory grossly within normal limits. Follows commands. Cognitively sharp. Moves all extremities. PSYCHIATRIC: No obvious anxiety/depression. No apparent hallucinations or other psychotic thought process. . Diagnostic Tests Laboratory: Laboratory Results - last 72 hr 11/04/17 11/04/17 11/04/17 15:50 15:50 15:50 WBC 4.7 RBC 3.96 L Hgb 12.6 L Hct 37.6 L MCV 94.9 MCH 31.9 MCHC 33.6 RDW 15.5 Plt Count 174 D MPV 8.0 Neut % (Auto) 65.9 Lymph % (Auto) 15.7 Gem % (Auto) 8.6 H Eos % (Auto) 7.7 H Baso % (Auto) 2.1 H Neut # (Auto) 3.1 Lymph # (Auto) 0.7 L Gem # (Auto) 0.4 Eos # (Auto) 0.4 Baso # (Auto) 0.1 WBC Differential . Differential Comment Auto diff final Sodium 135 L Potassium 3.9 Chloride 101 Carbon Dioxide 22.2 Anion Gap 12 BUN 4 L Creatinine 1.04 Estimated GFR 73 L POC Glucose Random Glucose 92 Lactic Acid Calcium 8.4 L Total Bilirubin 0.4 AST 46 H ALT 20 Alkaline Phosphatase 140 H Total Protein 7.0 Albumin 3.2 L Lipase 212 Urine Color Urine Clarity Urine pH Ur Specific [place] Urine Protein Urine Glucose (UA) Urine Ketones Urine Occult Blood Urine Nitrate Urine Bilirubin Urine Urobilinogen Ur Leukocyte Esterase Urine RBC Urine WBC Micro UA Comment Ur Microscopic Review Urine Culture Comments 11/04/17 11/04/17 11/04/17 15:50 20:07 21:04 WBC RBC Hgb Hct MCV MCH MCHC RDW Plt Count MPV Neut % (Auto) Lymph % (Auto) Gem % (Auto) Eos % (Auto) Baso % (Auto) Neut # (Auto) Lymph # (Auto) Gem # (Auto) Eos # (Auto) Baso # (Auto) WBC Differential Differential Comment Sodium Potassium Chloride Carbon Dioxide Anion Gap BUN Creatinine Estimated GFR POC Glucose 111 H Random Glucose Lactic Acid 0.9 Calcium Total Bilirubin AST ALT Alkaline Phosphatase Total Protein Albumin Lipase Urine Color Yellow Urine Clarity Clear Urine pH 5.0 Ur Specific [place] 1.008 Urine Protein Negative Urine Glucose (UA) Negative Urine Ketones Trace H Urine Occult Blood Small H Urine Nitrate Negative Urine Bilirubin Negative Urine Urobilinogen Less than 2 Ur Leukocyte Esterase Negative Urine RBC Less than 1 Urine WBC 1 Micro UA Comment Culture not ind Ur Microscopic Review Not Reportable Urine Culture Comments Culture not ind 11/05/17 11/05/17 11/05/17 06:30 06:30 16:55 WBC 4.0 RBC 3.67 L Hgb 11.6 L Hct 34.1 L MCV 92.9 MCH 31.5 MCHC 33.9 RDW 15.7 Plt Count 148 L MPV 8.3 Neut % (Auto) 56.9 Lymph % (Auto) 24.1 Gem % (Auto) 9.7 H Eos % (Auto) 7.1 H Baso % (Auto) 2.2 H Neut # (Auto) 2.3 Lymph # (Auto) 1.0 Gem # (Auto) 0.4 Eos # (Auto) 0.3 Baso # (Auto) 0.1 WBC Differential . Differential Comment Auto diff final Sodium 138 Potassium 3.6 Chloride 104 Carbon Dioxide 23.6 Anion Gap 10 BUN 4 L Creatinine 1.02 Estimated GFR 75 L POC Glucose 102 Random Glucose 90 Lactic Acid Calcium 7.7 L Total Bilirubin AST ALT Alkaline Phosphatase Total Protein Albumin Lipase Urine Color Urine Clarity Urine pH Ur Specific [place] Urine Protein Urine Glucose (UA) Urine Ketones Urine Occult Blood Urine Nitrate Urine Bilirubin Urine Urobilinogen Ur Leukocyte Esterase Urine RBC Urine WBC Micro UA Comment Ur Microscopic Review Urine Culture Comments 11/05/17 11/06/17 11/06/17 21:29 05:00 08:35 WBC 2.6 L RBC 3.48 L Hgb 11.0 L Hct 32.6 L MCV 93.8 MCH 31.6 MCHC 33.7 RDW 15.8 Plt Count 142 L MPV 8.2 Neut % (Auto) 60.5 Lymph % (Auto) 21.0 Gem % (Auto) 9.1 H Eos % (Auto) 8.2 H Baso % (Auto) 1.2 Neut # (Auto) 1.6 L Lymph # (Auto) 0.6 L Gem # (Auto) 0.2 Eos # (Auto) 0.2 Baso # (Auto) 0.0 WBC Differential . Differential Comment Auto diff final Sodium Potassium Chloride Carbon Dioxide Anion Gap BUN Creatinine Estimated GFR POC Glucose 117 H 119 H Random Glucose Lactic Acid Calcium Total Bilirubin AST ALT Alkaline Phosphatase Total Protein Albumin Lipase Urine Color Urine Clarity Urine pH Ur Specific [place] Urine Protein Urine Glucose (UA) Urine Ketones Urine Occult Blood Urine Nitrate Urine Bilirubin Urine Urobilinogen Ur Leukocyte Esterase Urine RBC Urine WBC Micro UA Comment Ur Microscopic Review Urine Culture Comments 11/06/17 13:01 WBC RBC Hgb Hct MCV MCH MCHC RDW Plt Count MPV Neut % (Auto) Lymph % (Auto) Gem % (Auto) Eos % (Auto) Baso % (Auto) Neut # (Auto) Lymph # (Auto) Gem # (Auto) Eos # (Auto) Baso # (Auto) WBC Differential Differential Comment Sodium Potassium Chloride Carbon Dioxide Anion Gap BUN Creatinine Estimated GFR POC Glucose 114 H Random Glucose Lactic Acid Calcium Total Bilirubin AST ALT Alkaline Phosphatase Total Protein Albumin Lipase Urine Color Urine Clarity Urine pH Ur Specific [place] Urine Protein Urine Glucose (UA) Urine Ketones Urine Occult Blood Urine Nitrate Urine Bilirubin Urine Urobilinogen Ur Leukocyte Esterase Urine RBC Urine WBC Micro UA Comment Ur Microscopic Review Urine Culture Comments Result Diagrams: 11/06/17 05:00 11/05/17 06:30 Microbiology: Microbiology 11/05/17 18:00 Aerobic Blood Culture - Preliminary Blood - Other No growth in 1 day Anaerobic Blood Culture - Preliminary No growth in 1 day 11/05/17 18:00 Aerobic Blood Culture - Preliminary Blood - Other No growth in 1 day Anaerobic Blood Culture - Preliminary No growth in 1 day 11/04/17 15:50 Aerobic Blood Culture - Preliminary Blood - Peripheral No growth in 2 days Anaerobic Blood Culture - Preliminary No growth in 2 days 11/04/17 15:55 Aerobic Blood Culture - Preliminary Blood - Peripheral No growth in 2 days Anaerobic Blood Culture - Preliminary No growth in 2 days Imaging: Chest X-Ray 11/04/17 15:48 CONCLUSION: Persistent right perihilar soft tissue density which appears stable to slightly decreased in size as compared to the prior CT. No new parenchymal abnormality seen. Head CT 11/05/17 00:00 CONCLUSION: Negative CT Head with and without contrast. Knee X-Ray 11/05/17 00:00 CONCLUSION: Mild degenerative changes as described above. Lumbar Spine MRI 11/05/17 00:00 CONCLUSION: 1. Some evidence of increased metastatic disease to bone with new focus in L1 2. Severe canal stenosis related to dorsal bony retropulsion and disc protrusion at L3-4 which appears grossly unchanged Pelvis MRI 11/05/17 00:00 CONCLUSION: Findings of extensive osseous metastatic disease as above. Avascular necrosis versus metastatic disease left femoral head Shoulder X-Ray 11/05/17 00:00 CONCLUSION: 1. Destructive process in the distal aspect of the right clavicle with a mottled appearance along the lateral border of the scapula concerning for metastatic disease. These were present previously. 2. Slight expansile process in the lateral aspect of rib #7 on the right. Diagnostic considerations include an old healed rib fracture or additional metastatic deposit. This was present as well previously. 3. Proximal humerus remains intact. Assessment and Plan - Disease Oriented Problem List (1) Bone metastases (2) Metastasis from breast cancer (3) Low grade fever (4) Diabetes mellitus - Symptom Scale (1) Intractable pain 0-10 Scale: 8 (2) Constipation 0-10 Scale: 8 Pertinent Non-Medical Issues: Psychosocial: Born in [facility]. Moved to [place] in 1983. 10th grade education. No service. 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 Has a terminal superintendent "fiancee" but says he will not be able to for financial reasons. No children. Both parents . Has a sister. Close to a nephew - - Hilton Dorseyther. Patient lives with his ivy, her mother, and his uncle. Spiritual: Zoroastrianism and spiritualty have not played an important role in his life. Legal: Health care surrogate completed 11/06/2017. Ethical issues impacting care: Patient is capacitated to make his own health care decisions at this time. . Important Contacts: * Ban Varma, primary HCS/significant other: [phone] * Hilton Delta, alternate HCS/nephew: [phone] Prognosis: Patient has been battling metastatic breast since 2012. Disease is progressing. He is losing weight. Pain is growing worse. Pain is keeping him mostly chair bound. On the other hand , he may still have some chemotherapy options that will slow the progress of his disease and patient's goals are still aggressive. Should treatment be unable to get him more mobile, life expectancy is probably in the order of months. Given the extent of his illness, at such time that patient no longer wants to pursue aggressive cancer directed therapies, he would be eligible for hospice care. . Code Status: Full Code Plan: == Code Status: FULL CODE. Patient wants resuscitation to be attempted and wants a "time limited trial of aggressive care." Should he end up on life support, he does not want to be maintained there if the doctors feel there is little chance of him returning to a life with quality. == Decision making: patient is currently capacitated to make his own health care decisions. Health care surrogate completed today (11/06/17). Primary HCS: Ban Varma (klaus); Alternate HCS: García Sorenson (nephew) == Goals of medical treatment: Patient wants his pain and constipation controlled. He wants to pursue any additional cancer directed treatments that might help to slow the progress of his disease. == Symptoms: * Pain: Most of patient's pain appears to be "bone" pain from metastatic disease and it is primarily located in metastatic areas. There is also a neuropathic component on the right where pain radiates down from the right hip toward the right knee and is associated with numbness. Pain is exacerbated by constipation and the constipation creates its own type of pain. * Constipation: This is severe and is certainly exacerbated by opioids. == PLAN * Recommend changing long acting opioid from morphine to methadone at 10 mg po q 8 hours ATC on Thursday if no relief in pain over the weekend. There is anecdotal evidence that methadone is less constipating and may be more helpful for the neuropathic component of the pain. * DCd Percocet. Changed order for breakthrough medication to Oxycodone (without Tylenol) 10-15 mg q 4 hours prn pain/sob. * Increased Mary-Colace to 2 PO twice daily. * Encouraged Dulcolax supp today - nurse notified at bedside and pt agrees. * Scheduled Lactulose 30 mls twice daily ATC and continue the prn order as is. Fluids should be encouraged to maximize effect of lactulose. * Recommend stopping the ferrous sulfate if oncology/hematology agrees --Hgb is 11.0 and the iron may be exacerbating gut discomfort. == Disposition: We will want to get pain under better control and get bowels moving adequately before discharge. As patient has essentially been chair- bound for months, he would probably benefit from some physical therapy to become ambulatory again once pain is controlled. == Patient has indicated that he would like more information on life expectancy so he can plan better, would appreciate oncology guidance. == Palliative care will continue to follow to assist with symptom management and to further clarify goals of medical treatment as the clinical course evolves. . Attestation Attestation: To help prompt me to consider important information that might be impacting today's encounter and assessment, information from prior notes written by myself or my colleagues may have been "brought forward" into today's note. My signature on this note, however, is an attestation that I personally performed the exam, history, and/or decision-making noted today, and, unless otherwise indicated, the interactions with patient, family, and staff as well as the review of records all occurred today. I also attest that the listed assessment and stated plan reflect my best clinical judgment today based on the combination of historical information, prior notes, and today's exam/ interactions. When time spent is documented, it refers only to time spent today by the signer, or if indicated, combined time spent today by collaborating physician/nurse practitioner.
[2017-11-06] MEDS: Lidocaine 5% Patch T-DERMAL SCH (21:57)
[2017-11-07] MEDS: Morphine Inj 4 MG/ML Vial IV.PUSH PRN (00:45)
[2017-11-07] MEDS: Sod Chloride 0.9% Inj 1,000 ML IV.CONT SCH ×3 (00:47→18:41)
[2017-11-07] MEDS: Vancomycin Inj 1,000 MG in Sodium Chlor 0.9% Inj 250 ML IV.SIG SCH ×2 (02:33→13:00)
[2017-11-07 05:46] LABS: Baso % (Auto) 0.7 % (0.0-2.0); Eos # (Auto) 0.3 th/mm3 (0.0-0.4); Eos % (Auto) 10.2 % (0.0-4.0); Hematocrit 31.3 % (39.0-51.0); Hemoglobin 10.4 gm/dL (13.0-17.0); Lymph # (Auto) 0.7 th/mm3 (1.0-4.8); Lymph % (Auto) 23.2 % (9.0-44.0); Mean Corpuscular HGB Conc 33.2 % (32.0-36.0); Mean Corpuscular Hemoglobin 31.7 pg (27.0-34.0); Mean Corpuscular Volume 95.5 fL (80.0-100.0); Mean Platelet Volume 8.2 fL (7.0-11.0); Mono # (Auto) 0.1 th/mm3 (0.0-0.9); Mono % (Auto) 4.3 % (0.0-8.0); Neut % (Auto) 61.6 % (16.0-70.0); Platelet Count 137 th/mm3 (150-450); Red Blood Count 3.28 mil/mm3 (4.50-5.90); Red Cell Distribution Width 16.2 % (11.6-17.2); White Blood Count 3.2 th/mm3 (4.0-11.0)
[2017-11-07 06:18] LABS: Alanine Aminotransferase 20 U/L (12-78); Albumin 2.6 g/dL (3.4-5.0); Alkaline Phosphatase 103 U/L (45-117); Anion Gap 9 meq/L (5-15); Aspartate Aminotransferase 45 U/L (15-37); Blood Urea Nitrogen 3 mg/dL (7-18); Calcium 7.6 mg/dL (8.5-10.1); Carbon Dioxide 25.4 meq/L (21.0-32.0); Chloride 108 meq/L (98-107); Glomerular Filtration Rate 80 mL/min (>89); Glucose,Random 97 mg/dL (74-106); Potassium 3.4 meq/L (3.5-5.1); Sodium 142 meq/L (136-145)
[2017-11-07] MEDS: Insulin NovoLOG Aspart Correctional Sugar Inj SQ SCH ×4 (07:39→22:07)
[2017-11-07] MEDS: Ferrous Sulfate 325 MG Tablet PO SCH ×2 (08:53→20:20)
[2017-11-07] MEDS: hydroCHLOROthiazide 25 MG Tablet PO SCH (08:54)
[2017-11-07] MEDS: Morphine Sulfate 30 MG SR Tablet PO SCH ×2 (08:54→22:07)
[2017-11-07] MEDS: Senna/Docusate Sodium 8.6/50 MG Tablet PO SCH ×2 (08:56→20:20)
[2017-11-07] MEDS: Heparin - SQ 10,000 UNITS/ML Vial SQ SCH ×2 (08:57→20:20)
--- NOTE | 2017-11-07 10:02 | P.PNONC ---
Subjective Interval history: Afebrile. Patient reports bowel movement and disimpaction last night. He is now abdominal pain-free. He reports his bone pain has improved with medication. He is attempting to eat his meals, however he states if the food gets cold he cannot eat it. We have discussed the microwave and he refuses to eat " microwave food " Objective Vital Signs/Intake & Output: Vital Signs 11/06/17 11:07 11/06/17 12:00 11/06/17 16:00 Temperature 98.7 F 98.1 F Pulse Rate 86 91 H Respiratory Rate 20 16 18 Blood Pressure 128/83 119/68 Pulse Oximetry 94 L 98 11/06/17 20:00 11/06/17 20:05 11/07/17 00:00 Temperature 98.1 F 98.4 F Pulse Rate 87 89 87 Respiratory Rate 20 20 Blood Pressure 104/63 116/69 Pulse Oximetry 98 94 L 11/07/17 04:00 11/07/17 08:00 Temperature 98.5 F 98.5 F Pulse Rate 92 H 85 Respiratory Rate 18 16 Blood Pressure 118/64 115/60 Pulse Oximetry 92 L 98 Intake & Output 11/06/17 11/07/17 11/07/17 18:59 06:59 18:59 Intake Total 2450 / 2450 1730 / 1730 Output Total 1800 / 1800 1700 / 1700 Balance 650 / 650 30 / 30 Weight 130.6 kg Intake: IV 1250 / 1250 1250 / 1250 NS Inj 1,000 ML @ 100 mls/hr IV 1000 / 1000 1000 / 1000 .CONT .Q10H [facility] Rx#:[id number] Vancomycin Inj 1,000 MG In NS 250 / 250 250 / 250 Inj 250 ML @ 250 mls/hr IV.SIG Q12H [facility] Rx#:[id number] Oral 1200 / 1200 480 / 480 Output: Urine 1800 / 1800 1600 / 1600 Emesis 100 / 100 Other: Date of Last Bowel Movement 11/05/17 11/06/17 Result Diagrams: 11/07/17 04:30 11/07/17 04:30 Laboratory Results: Laboratory Results - last 24 hr 11/06/17 11/06/17 11/06/17 13:01 17:41 21:20 WBC RBC Hgb Hct MCV MCH MCHC RDW Plt Count MPV Neut % (Auto) Lymph % (Auto) [place] % (Auto) Eos % (Auto) Baso % (Auto) Neut # (Auto) Lymph # (Auto) [place] # (Auto) Eos # (Auto) Baso # (Auto) WBC Differential Differential Comment Sodium Potassium Chloride Carbon Dioxide Anion Gap BUN Creatinine Estimated GFR POC Glucose 114 H 127 H 113 H Random Glucose Calcium Total Bilirubin AST ALT Alkaline Phosphatase Total Protein Albumin 11/07/17 11/07/17 04:30 04:30 WBC 3.2 L RBC 3.28 L Hgb 10.4 L Hct 31.3 L MCV 95.5 MCH 31.7 MCHC 33.2 RDW 16.2 Plt Count 137 L MPV 8.2 Neut % (Auto) 61.6 Lymph % (Auto) 23.2 [place] % (Auto) 4.3 Eos % (Auto) 10.2 H Baso % (Auto) 0.7 Neut # (Auto) 2.0 Lymph # (Auto) 0.7 L [place] # (Auto) 0.1 Eos # (Auto) 0.3 Baso # (Auto) 0.0 WBC Differential . Differential Comment Auto diff final Sodium 142 Potassium 3.4 L Chloride 108 H Carbon Dioxide 25.4 Anion Gap 9 BUN 3 L Creatinine 0.96 Estimated GFR 80 L POC Glucose Random Glucose 97 Calcium 7.6 L Total Bilirubin 0.4 AST 45 H ALT 20 Alkaline Phosphatase 103 Total Protein 6.0 L D Albumin 2.6 L Culture Results: Microbiology 11/05/17 18:00 Aerobic Blood Culture - Preliminary Blood - Other No growth in 1 day Anaerobic Blood Culture - Preliminary No growth in 1 day 11/05/17 18:00 Aerobic Blood Culture - Preliminary Blood - Other No growth in 1 day Anaerobic Blood Culture - Preliminary No growth in 1 day 11/04/17 15:50 Aerobic Blood Culture - Preliminary Blood - Peripheral No growth in 2 days Anaerobic Blood Culture - Preliminary No growth in 2 days 11/04/17 15:55 Aerobic Blood Culture - Preliminary Blood - Peripheral No growth in 2 days Anaerobic Blood Culture - Preliminary No growth in 2 days Medications: Active Medications Generic Name Dose Route Start Last Admin Trade Name Freq PRN Reason Stop Dose Admin Acetaminophen 650 mg 11/04/17 18:29 11/05/17 17:06 Tylenol PO 650 mg Q4H PRN Administration Temp > 100.4 Bisacodyl 10 mg 11/04/17 18:29 11/06/17 22:42 Dulcolax Supp RECTAL 10 mg DAILY PRN Administration SEVERE CONSITIPATION Dexamethasone 4 mg 11/06/17 09:00 11/06/17 08:37 Decadron PO 4 mg DAILY [facility] Administration Ferrous Sulfate 325 mg 11/04/17 21:00 11/07/17 08:53 Ferosul PO 325 mg BID [facility] Administration Heparin Sodium (Porcine) 5,000 units 11/04/17 21:00 11/07/17 08:57 Heparin Inj SQ 5,000 units Q12HR [facility] Administration Hydrochlorothiazide 25 mg 11/05/17 09:00 11/07/17 08:54 Hydrodiuril PO 25 mg DAILY [facility] Administration Sodium Chloride 1,000 mls @ 100 mls/hr 11/04/17 18:30 11/07/17 00:47 Ns Inj IV.CONT 100 mls/hr .Q10H [facility] Administration Vancomycin HCl 1,000 mg/ 250 mls @ 250 mls/hr 11/06/17 14:00 11/07/17 03:33 Sodium Chloride IV.SIG Infused Q12H [facility] Infusion Insulin Aspart 0 unit 11/04/17 21:00 11/07/17 07:39 Novolog Insulin Correctional Sugar Inj SQ Not Given ACHS [facility] Protocol Lactulose 30 ml 11/05/17 07:26 11/06/17 15:18 Lactulose Liq PO 30 ml TID PRN Administration SEVERE CONSITIPATION Lactulose 30 ml 11/06/17 21:00 11/07/17 08:53 Lactulose Liq PO 30 ml BID [facility] Administration Lidocaine HCl 2 patch 11/04/17 21:00 11/06/17 21:57 Lidoderm 5% Patch.12 Hr T-DERMAL 2 patch Q24H [facility] Administration Metformin HCl 500 mg 11/05/17 09:00 11/07/17 08:54 Glucophage PO 500 mg DAILY [facility] Administration Morphine Sulfate 4 mg 11/04/17 18:31 11/07/17 00:45 Morphine Inj IV.PUSH 4 mg Q3H PRN Administration BREAKTHROUGH PAIN Morphine Sulfate 30 mg 11/04/17 21:00 11/07/17 08:54 Oramorph Sr PO 30 mg BID [facility] Administration Ondansetron HCl 4 mg 11/04/17 18:29 11/06/17 22:20 Zofran Inj IV.PUSH 4 mg Q6H PRN Administration NAUSEA OR VOMITING Oxycodone HCl 10 mg 11/06/17 16:24 11/06/17 21:23 Roxicodone PO 10 mg Q4H PRN Administration PAIN SCALE 1-5 Oxycodone HCl 15 mg 11/06/17 16:26 11/07/17 08:56 Roxicodone PO 15 mg Q4H PRN Administration PAIN SCALE 6-10 Pantoprazole Sodium 40 mg 11/06/17 09:00 11/07/17 08:57 Protonix PO 40 mg DAILY [facility] Administration Patch Removal 1 each 11/05/17 09:00 11/06/17 14:42 Remove Old Patch T-DERMAL 1 each DAILY [facility] Administration Senna/Docusate Sodium 2 tab 11/06/17 21:00 11/07/17 08:56 Mary-Colace PO 2 tab BID [facility] Administration Objective Remarks: GENERAL: Obese male patient, who appears older than stated age, lying in bed. In no acute distress. SKIN: Warm and dry. HEAD: Normocephalic. EYES: No scleral icterus. No injection or drainage. NECK: Supple, trachea midline. CARDIOVASCULAR: Regular rate and rhythm without murmurs. RESPIRATORY: Anterior breath sounds distant, equal bilaterally. No accessory muscle use. GASTROINTESTINAL: Abdomen large, soft, non-tender, nondistended. EXTREMITIES: No cyanosis, or edema. MUSCULOSKELETAL: Adequate muscle tone. NEUROLOGICAL: No obvious focal deficit. Awake, alert, and oriented x3. PSYCHIATRIC: Agitated mood; insight and judgment normal. Assessment/Plan - Plan This is a 57-year-old gentleman with metastatic breast cancer. He was first diagnosed with left breast cancer in 2012, he had a bilateral mastectomy. Pathology showed a 6.5 cm infiltrating ductal carcinoma, moderately differentiated with 2/8 lymph nodes positive for metastatic disease. Hormone receptor positive, HER-2 negative. Treated with dose-dense chemotherapy followed by chest wall radiation. Patient was on tamoxifen until he developed metastatic bone disease in 2016. PET scan showed hypermetabolic lesion thoracic spine, lumbar spine, left iliac wing and ribs. He also developed subcutaneous metastatic nodule. Biopsy of the left iliac bone lesion showed metastatic poorly differentiated carcinoma consistent with breast primary. This was hormone receptor +. He was treated with Xeloda October 2016 and had good response, recently he developed progression of bone disease and was started on Taxol. He had 2 infusions of Taxol before developing an allergic infusion reaction. He stopped the Taxol for about 2 weeks. He has recently received his first cycle of Abraxane. Patient was admitted to the hospital for intractable bone pain due to metastatic disease. Plan: 1. Metastatic breast cancer, status post first cycle of Abraxane. Continue to monitor. 2. Intractable pain related to bone metastasis, improving with narcotic pain medication. 3. Continue pain medications as needed. We appreciate palliative care's assistance with pain and symptom control. 4. Neutropenia, improving. Afebrile. Patient on vancomycin. Blood cultures thus far negative. We will continue to monitor and treat accordingly. 5. Patient seen by radiation oncology, plan for palliative radiation for pain relief. - Attending Statement The exam, history, and the medical decision-making described in the above note were completed with the assistance of the mid-level provider. I reviewed and agree with the findings presented. I attest that I had a [id number] encounter with the patient on the same day, and personally performed and documented my assessment and findings in the medical record. Stage IV Breast with bone mets s/p b/l mastectomy intractable bone pain recently started on Abraxane Rad onc saw patient palliative xrt plans MSCONTIN 30mg bid and IV morphine 4mg q3mg Pain better controlled Oxycodone for breakthrough Replace potassium 40meq supportive care
--- NOTE | 2017-11-07 14:21 | P.PN ---
Subjective Interval history: feeling better had manual disimpaction last evening- much relief Physical Exam Vital signs: Vital Signs 11/06/17 16:00 11/06/17 20:00 11/06/17 20:05 Temperature 98.1 F 98.1 F Pulse Rate 91 H 87 89 Respiratory Rate 18 20 Blood Pressure 119/68 104/63 Pulse Oximetry 98 98 11/07/17 00:00 11/07/17 04:00 11/07/17 08:00 Temperature 98.4 F 98.5 F 98.5 F Pulse Rate 87 92 H 85 Respiratory Rate 20 18 16 Blood Pressure 116/69 118/64 115/60 Pulse Oximetry 94 L 92 L 98 Intake & Output 11/06/17 11/07/17 11/07/17 18:59 06:59 18:59 Intake Total 2450 / 2450 1730 / 1730 Output Total 1800 / 1800 1700 / 1700 Balance 650 / 650 30 / 30 Weight 130.6 kg Intake: IV 1250 / 1250 1250 / 1250 NS Inj 1,000 ML @ 100 mls/hr IV 1000 / 1000 1000 / 1000 .CONT .Q10H [facility] Rx#:[id number] Vancomycin Inj 1,000 MG In NS 250 / 250 250 / 250 Inj 250 ML @ 250 mls/hr IV.SIG Q12H [facility] Rx#:[id number] Oral 1200 / 1200 480 / 480 Output: Urine 1800 / 1800 1600 / 1600 Emesis 100 / 100 Other: Date of Last Bowel Movement 11/05/17 11/06/17 Narrative: awake and alert, oriented x 3, speech clear anicteric neck supple, lungs- no rales regular rhythm abdomen- flabby, soft, good bowel sounds extremities no edema moves all extremities spontaneously no calf swelling or tenderness Results - Labs CBC & Chem 7: 11/07/17 04:30 11/07/17 04:30 Laboratory Results - last 24 hr 11/06/17 11/06/17 11/07/17 17:41 21:20 04:30 WBC 3.2 L RBC 3.28 L Hgb 10.4 L Hct 31.3 L MCV 95.5 MCH 31.7 MCHC 33.2 RDW 16.2 Plt Count 137 L MPV 8.2 Neut % (Auto) 61.6 Lymph % (Auto) 23.2 [place] % (Auto) 4.3 Eos % (Auto) 10.2 H Baso % (Auto) 0.7 Neut # (Auto) 2.0 Lymph # (Auto) 0.7 L [place] # (Auto) 0.1 Eos # (Auto) 0.3 Baso # (Auto) 0.0 WBC Differential . Differential Comment Auto diff final Sodium Potassium Chloride Carbon Dioxide Anion Gap BUN Creatinine Estimated GFR POC Glucose 127 H 113 H Random Glucose Calcium Total Bilirubin AST ALT Alkaline Phosphatase Total Protein Albumin 11/07/17 04:30 WBC RBC Hgb Hct MCV MCH MCHC RDW Plt Count MPV Neut % (Auto) Lymph % (Auto) [place] % (Auto) Eos % (Auto) Baso % (Auto) Neut # (Auto) Lymph # (Auto) [place] # (Auto) Eos # (Auto) Baso # (Auto) WBC Differential Differential Comment Sodium 142 Potassium 3.4 L Chloride 108 H Carbon Dioxide 25.4 Anion Gap 9 BUN 3 L Creatinine 0.96 Estimated GFR 80 L POC Glucose Random Glucose 97 Calcium 7.6 L Total Bilirubin 0.4 AST 45 H ALT 20 Alkaline Phosphatase 103 Total Protein 6.0 L D Albumin 2.6 L Microbiology 11/05/17 18:00 Blood - Other Aerobic Blood Culture - Preliminary No growth in 2 days 11/05/17 18:00 Blood - Other Anaerobic Blood Culture - Preliminary No growth in 2 days 11/05/17 18:00 Blood - Other Aerobic Blood Culture - Preliminary No growth in 2 days 11/05/17 18:00 Blood - Other Anaerobic Blood Culture - Preliminary No growth in 2 days 11/04/17 15:50 Blood - Peripheral Aerobic Blood Culture - Preliminary No growth in 3 days 11/04/17 15:50 Blood - Peripheral Anaerobic Blood Culture - Preliminary No growth in 3 days 11/04/17 15:55 Blood - Peripheral Aerobic Blood Culture - Preliminary No growth in 3 days 11/04/17 15:55 Blood - Peripheral Anaerobic Blood Culture - Preliminary No growth in 3 days Assessment and Plan - Plan This is a 49-year-old male with a history of metastatic breast cancer to the thoracic and lumbar spine, right pelvis and lymph nodes, hypertension and diabetes mellitus. He presents to the emergency room complaining of severe pain involving the right pelvis. No recent fall. Patient is on chronic narcotic on long-acting morphine 50 mg twice a day and Percocet 10 mg every 4-6 hours. Intractable pain with a history of metastatic breast cancer to the thoracic and lumbar spine, right pelvis and left nodes. - Continue long-acting morphine sulfate 50 mg twice a day, Percocet 10 mg every 4 hours and IV morphine 4 mg every 4 hours for breakthrough pain. - Oncology, Palliative care ff - head CT negative Constipation= S/P Manual disimpaction- w - continue bowel regimen - relistor Hypertension. on hydrochlorothiazide and to monitor Diabetes mellitus. Continue metformin and monitor fingersticks and sliding scale coverage. DVT prophylaxis with subcu heparin. FEN - start on Glcuerna- - dietitian ff Fever 101-yesterday 11/05 - now T down Neutropenia- WBC - up to 3.2 recent chemotherapy- WBC low with ANC 1.6 ff cultures- so far negarive, UA negative ff CBC d/w Oncology-LOCK SETTER received IV Vancomycin 11/05. started Vancomycin with neutropenia Palliative care service ff
[2017-11-07] MEDS: Lidocaine 5% Patch T-DERMAL SCH (20:19)
[2017-11-08] MEDS: Vancomycin Inj 1,000 MG in Sodium Chlor 0.9% Inj 250 ML IV.SIG SCH ×2 (03:02→15:48)
[2017-11-08] MEDS: Sod Chloride 0.9% Inj 1,000 ML IV.CONT SCH ×3 (03:05→23:59)
[2017-11-08 05:26] LABS: Baso % (Auto) 0.3 % (0.0-2.0); Eos % (Auto) 0.3 % (0.0-4.0); Hematocrit 31.3 % (39.0-51.0); Hemoglobin 10.6 gm/dL (13.0-17.0); Lymph # (Auto) 0.5 th/mm3 (1.0-4.8); Lymph % (Auto) 17.1 % (9.0-44.0); Mean Corpuscular HGB Conc 33.8 % (32.0-36.0); Mean Corpuscular Hemoglobin 31.7 pg (27.0-34.0); Mean Corpuscular Volume 93.7 fL (80.0-100.0); Mean Platelet Volume 8.1 fL (7.0-11.0); Mono # (Auto) 0.1 th/mm3 (0.0-0.9); Mono % (Auto) 1.9 % (0.0-8.0); Neut # (Auto) 2.4 th/mm3 (1.8-7.7); Neut % (Auto) 80.4 % (16.0-70.0); Platelet Count 177 th/mm3 (150-450); Red Blood Count 3.34 mil/mm3 (4.50-5.90); Red Cell Distribution Width 15.4 % (11.6-17.2)
[2017-11-08 05:50] LABS: Albumin 2.7 g/dL (3.4-5.0); Anion Gap 7 meq/L (5-15); Aspartate Aminotransferase 50 U/L (15-37); Blood Urea Nitrogen 5 mg/dL (7-18); Calcium 8.3 mg/dL (8.5-10.1); Carbon Dioxide 26.3 meq/L (21.0-32.0); Chloride 108 meq/L (98-107); Glomerular Filtration Rate 72 mL/min (>89); Glucose,Random 134 mg/dL (74-106); Sodium 141 meq/L (136-145)
[2017-11-08 05:52] LABS: Alanine Aminotransferase 23 U/L (12-78)
[2017-11-08 05:54] LABS: Alkaline Phosphatase 103 U/L (45-117); Total Protein 6.4 g/dL (6.4-8.2)
[2017-11-08] MEDS: Senna/Docusate Sodium 8.6/50 MG Tablet PO SCH ×2 (10:09→20:33)
[2017-11-08] MEDS: Ferrous Sulfate 325 MG Tablet PO SCH ×2 (10:09→20:33)
[2017-11-08] MEDS: Morphine Sulfate 30 MG SR Tablet PO SCH ×2 (10:10→20:33)
[2017-11-08] MEDS: Heparin - SQ 10,000 UNITS/ML Vial SQ SCH ×2 (10:10→20:36)
[2017-11-08] MEDS: hydroCHLOROthiazide 25 MG Tablet PO SCH (10:13)
[2017-11-08] MEDS: Insulin NovoLOG Aspart Correctional Sugar Inj SQ SCH ×4 (10:52→20:47)
--- NOTE | 2017-11-08 11:21 | P.PNONC ---
Subjective Interval history: Afebrile. Patient lying in bed. RN and HANDS AND DIAL INSPECTOR at the bedside. +BM this a.m. Pain currently controlled. Objective Vital Signs/Intake & Output: Vital Signs 11/07/17 14:03 11/07/17 18:00 11/07/17 19:59 Temperature 98.1 F 98.8 F 98.5 F Pulse Rate 84 66 86 Respiratory Rate 18 16 16 Blood Pressure 142/75 H 125/73 118/78 Pulse Oximetry 95 95 92 L 11/07/17 20:15 11/07/17 20:50 11/07/17 23:50 Temperature 98.1 F Pulse Rate 85 81 Respiratory Rate 18 16 Blood Pressure 125/68 Pulse Oximetry 93 L 11/08/17 00:14 11/08/17 04:29 11/08/17 04:36 Temperature 98.4 F Pulse Rate 80 94 H 78 Respiratory Rate Blood Pressure 137/63 Pulse Oximetry 94 L 11/08/17 05:15 Temperature Pulse Rate Respiratory Rate 18 Blood Pressure Pulse Oximetry Intake & Output 11/07/17 11/08/17 11/08/17 18:59 06:59 18:59 Intake Total 1250 / 1250 1750 / 1750 Output Total 3500 / 3500 2575 / 2575 Balance -2250 / -2250 -825 / -825 Weight 130.5 kg Intake: IV 1250 / 1250 1250 / 1250 NS Inj 1,000 ML @ 100 mls/hr IV 1000 / 1000 1000 / 1000 .CONT .Q10H [facility] Rx#:[id number] Vancomycin Inj 1,000 MG In NS 250 / 250 250 / 250 Inj 250 ML @ 250 mls/hr IV.SIG Q12H [facility] Rx#:[id number] Oral 500 / 500 Output: Urine 3500 / 3500 2575 / 2575 Other: Date of Last Bowel Movement 11/08/17 # Bowel Movements 1 Result Diagrams: 11/08/17 04:45 11/08/17 04:45 Laboratory Results: Laboratory Results - last 24 hr 11/07/17 11/07/17 11/08/17 15:53 22:00 04:45 WBC 3.0 L RBC 3.34 L Hgb 10.6 L Hct 31.3 L MCV 93.7 MCH 31.7 MCHC 33.8 RDW 15.4 Plt Count 177 MPV 8.1 Neut % (Auto) 80.4 H Lymph % (Auto) 17.1 [place] % (Auto) 1.9 Eos % (Auto) 0.3 Baso % (Auto) 0.3 Neut # (Auto) 2.4 Lymph # (Auto) 0.5 L [place] # (Auto) 0.1 Eos # (Auto) 0.0 Baso # (Auto) 0.0 WBC Differential . Differential Comment Auto diff final Sodium Potassium Chloride Carbon Dioxide Anion Gap BUN Creatinine Estimated GFR POC Glucose 138 H 157 H Random Glucose Calcium Total Bilirubin AST ALT Alkaline Phosphatase Total Protein Albumin 11/08/17 04:45 WBC RBC Hgb Hct MCV MCH MCHC RDW Plt Count MPV Neut % (Auto) Lymph % (Auto) [place] % (Auto) Eos % (Auto) Baso % (Auto) Neut # (Auto) Lymph # (Auto) [place] # (Auto) Eos # (Auto) Baso # (Auto) WBC Differential Differential Comment Sodium 141 Potassium 4.0 Chloride 108 H Carbon Dioxide 26.3 Anion Gap 7 BUN 5 L Creatinine 1.06 Estimated GFR 72 L POC Glucose Random Glucose 134 H Calcium 8.3 L Total Bilirubin 0.4 AST 50 H ALT 23 Alkaline Phosphatase 103 Total Protein 6.4 Albumin 2.7 L Culture Results: Microbiology 11/05/17 18:00 Aerobic Blood Culture - Preliminary Blood - Other No growth in 3 days Anaerobic Blood Culture - Preliminary No growth in 3 days 11/05/17 18:00 Aerobic Blood Culture - Preliminary Blood - Other No growth in 3 days Anaerobic Blood Culture - Preliminary No growth in 3 days 11/04/17 15:50 Aerobic Blood Culture - Preliminary Blood - Peripheral No growth in 4 days Anaerobic Blood Culture - Preliminary No growth in 4 days 11/04/17 15:55 Aerobic Blood Culture - Preliminary Blood - Peripheral No growth in 4 days Anaerobic Blood Culture - Preliminary No growth in 4 days Medications: Active Medications Generic Name Dose Route Start Last Admin Trade Name Freq PRN Reason Stop Dose Admin Acetaminophen 650 mg 11/04/17 18:29 11/05/17 17:06 Tylenol PO 650 mg Q4H PRN Administration Temp > 100.4 Bisacodyl 10 mg 11/04/17 18:29 11/06/17 22:42 Dulcolax Supp RECTAL 10 mg DAILY PRN Administration SEVERE CONSITIPATION Dexamethasone 4 mg 11/06/17 09:00 11/08/17 10:10 Decadron PO 4 mg DAILY [facility] Administration Ferrous Sulfate 325 mg 11/04/17 21:00 11/08/17 10:09 Ferosul PO 325 mg BID [facility] Administration Heparin Sodium (Porcine) 5,000 units 11/04/17 21:00 11/08/17 10:10 Heparin Inj SQ 5,000 units Q12HR [facility] Administration Hydrochlorothiazide 25 mg 11/05/17 09:00 11/08/17 10:13 Hydrodiuril PO 25 mg DAILY [facility] Administration Sodium Chloride 1,000 mls @ 100 mls/hr 11/04/17 18:30 11/08/17 03:05 Ns Inj IV.CONT 100 mls/hr .Q10H [facility] Administration Vancomycin HCl 1,000 mg/ 250 mls @ 250 mls/hr 11/06/17 14:00 11/08/17 04:33 Sodium Chloride IV.SIG Infused Q12H [facility] Infusion Insulin Aspart 0 unit 11/04/17 21:00 11/08/17 10:52 Novolog Insulin Correctional Sugar Inj SQ Not Given ACHS [facility] Protocol Lactulose 30 ml 11/05/17 07:26 11/06/17 15:18 Lactulose Liq PO 30 ml TID PRN Administration SEVERE CONSITIPATION Lactulose 30 ml 11/06/17 21:00 11/08/17 10:10 Lactulose Liq PO 30 ml BID [facility] Administration Lidocaine HCl 2 patch 11/04/17 21:00 11/07/17 20:19 Lidoderm 5% Patch.12 Hr T-DERMAL 2 patch Q24H [facility] Administration Metformin HCl 500 mg 11/05/17 09:00 11/08/17 10:09 Glucophage PO 500 mg DAILY [facility] Administration Morphine Sulfate 4 mg 11/04/17 18:31 11/07/17 00:45 Morphine Inj IV.PUSH 4 mg Q3H PRN Administration BREAKTHROUGH PAIN Morphine Sulfate 30 mg 11/04/17 21:00 11/08/17 10:10 Oramorph Sr PO 30 mg BID [facility] Administration Ondansetron HCl 4 mg 11/04/17 18:29 11/06/17 22:20 Zofran Inj IV.PUSH 4 mg Q6H PRN Administration NAUSEA OR VOMITING Oxycodone HCl 10 mg 11/06/17 16:24 11/08/17 04:45 Roxicodone PO 10 mg Q4H PRN Administration PAIN SCALE 1-5 Oxycodone HCl 15 mg 11/06/17 16:26 11/07/17 08:56 Roxicodone PO 15 mg Q4H PRN Administration PAIN SCALE 6-10 Pantoprazole Sodium 40 mg 11/06/17 09:00 11/08/17 10:10 Protonix PO 40 mg DAILY [facility] Administration Patch Removal 1 each 11/05/17 09:00 11/08/17 10:52 Remove Old Patch T-DERMAL 1 each DAILY [facility] Administration Senna/Docusate Sodium 2 tab 11/06/17 21:00 11/08/17 10:09 Mary-Colace PO 2 tab BID [facility] Administration Objective Remarks: GENERAL: Obese male patient, who appears older than stated age, lying in bed. In no acute distress. SKIN: Warm and dry. HEAD: Normocephalic. EYES: No scleral icterus. No injection or drainage. NECK: Supple, trachea midline. CARDIOVASCULAR: +S/S2 without murmurs. RESPIRATORY: Anterior breath sounds distant, equal bilaterally. GASTROINTESTINAL: Abdomen large, soft, non-tender, nondistended. EXTREMITIES: No cyanosis, or edema. MUSCULOSKELETAL: Adequate muscle tone. NEUROLOGICAL: No obvious focal deficit. Awake, alert, and oriented x3. PSYCHIATRIC: Insight and judgment normal. Assessment/Plan - Plan This is a 57-year-old gentleman with metastatic breast cancer. He was first diagnosed with left breast cancer in 2012, he had a bilateral mastectomy. Pathology showed a 6.5 cm infiltrating ductal carcinoma, moderately differentiated with 2/8 lymph nodes positive for metastatic disease. Hormone receptor positive, HER-2 negative. Treated with dose-dense chemotherapy followed by chest wall radiation. Patient was on tamoxifen until he developed metastatic bone disease in 2016. PET scan showed hypermetabolic lesion thoracic spine, lumbar spine, left iliac wing and ribs. He also developed subcutaneous metastatic nodule. Biopsy of the left iliac bone lesion showed metastatic poorly differentiated carcinoma consistent with breast primary. This was hormone receptor +. He was treated with Xeloda October 2016 and had good response, recently he developed progression of bone disease and was started on Taxol. He had 2 infusions of Taxol before developing an allergic infusion reaction. He stopped the Taxol for about 2 weeks. He has recently received his first cycle of Abraxane. Patient was admitted to the hospital for intractable bone pain due to metastatic disease. Plan: 1. Metastatic breast cancer, status post first cycle of Abraxane. Continue to monitor. 2. Intractable pain related to bone metastasis, currently controlled. with narcotic pain medications. Management per palliative care 3. Hypokalemia, resolved, patient received 40 mEq of potassium yesterday. 4. Neutropenia, resolved. Afebrile. Patient on vancomycin. Blood cultures thus far negative. We will continue to monitor and treat accordingly. 5. Radiation oncology, plan for palliative radiation for pain relief. - Attending Statement The exam, history, and the medical decision-making described in the above note were completed with the assistance of the mid-level provider. I reviewed and agree with the findings presented. I attest that I had a [id number] encounter with the patient on the same day, and personally performed and documented my assessment and findings in the medical record. pain better controlled, met BRCA, having bowel movements, nursing assisting with bed transfer. PT to resume tomorrow. Roxicodone, Morphine 4mg q3 prn, oromorph 30 BID. supportive care.
--- NOTE | 2017-11-08 12:50 | P.PN ---
Subjective Interval history: states had a bowel movement no pain Physical Exam Vital signs: Vital Signs 11/07/17 14:03 11/07/17 18:00 11/07/17 19:59 Temperature 98.1 F 98.8 F 98.5 F Pulse Rate 84 66 86 Respiratory Rate 18 16 16 Blood Pressure 142/75 H 125/73 118/78 Pulse Oximetry 95 95 92 L 11/07/17 20:15 11/07/17 20:50 11/07/17 23:50 Temperature 98.1 F Pulse Rate 85 81 Respiratory Rate 18 16 Blood Pressure 125/68 Pulse Oximetry 93 L 11/08/17 00:14 11/08/17 04:29 11/08/17 04:36 Temperature 98.4 F Pulse Rate 80 94 H 78 Respiratory Rate Blood Pressure 137/63 Pulse Oximetry 94 L 11/08/17 05:15 11/08/17 10:54 Temperature 98.1 F Pulse Rate 71 Respiratory Rate 18 16 Blood Pressure 120/68 Pulse Oximetry 99 Intake & Output 11/07/17 11/08/17 11/08/17 18:59 06:59 18:59 Intake Total 1250 / 1250 1750 / 1750 Output Total 3500 / 3500 2575 / 2575 Balance -2250 / -2250 -825 / -825 Weight 130.5 kg Intake: IV 1250 / 1250 1250 / 1250 NS Inj 1,000 ML @ 100 mls/hr IV 1000 / 1000 1000 / 1000 .CONT .Q10H [facility] Rx#:[id number] Vancomycin Inj 1,000 MG In NS 250 / 250 250 / 250 Inj 250 ML @ 250 mls/hr IV.SIG Q12H [facility] Rx#:[id number] Oral 500 / 500 Output: Urine 3500 / 3500 2575 / 2575 Other: Date of Last Bowel Movement 11/08/17 11/08/17 # Bowel Movements 1 Narrative: awake and alert, oriented x 3, speech clear anicteric neck supple, lungs- no rales regular rhythm abdomen- flabby, soft, good bowel sounds extremities no edema moves all extremities spontaneously no calf swelling or tenderness Results - Labs CBC & Chem 7: 11/08/17 04:45 11/08/17 04:45 Laboratory Results - last 24 hr 11/07/17 11/07/17 11/08/17 15:53 22:00 04:45 WBC 3.0 L RBC 3.34 L Hgb 10.6 L Hct 31.3 L MCV 93.7 MCH 31.7 MCHC 33.8 RDW 15.4 Plt Count 177 MPV 8.1 Neut % (Auto) 80.4 H Lymph % (Auto) 17.1 [place] % (Auto) 1.9 Eos % (Auto) 0.3 Baso % (Auto) 0.3 Neut # (Auto) 2.4 Lymph # (Auto) 0.5 L [place] # (Auto) 0.1 Eos # (Auto) 0.0 Baso # (Auto) 0.0 WBC Differential . Differential Comment Auto diff final Sodium Potassium Chloride Carbon Dioxide Anion Gap BUN Creatinine Estimated GFR POC Glucose 138 H 157 H Random Glucose Calcium Total Bilirubin AST ALT Alkaline Phosphatase Total Protein Albumin 11/08/17 04:45 WBC RBC Hgb Hct MCV MCH MCHC RDW Plt Count MPV Neut % (Auto) Lymph % (Auto) [place] % (Auto) Eos % (Auto) Baso % (Auto) Neut # (Auto) Lymph # (Auto) [place] # (Auto) Eos # (Auto) Baso # (Auto) WBC Differential Differential Comment Sodium 141 Potassium 4.0 Chloride 108 H Carbon Dioxide 26.3 Anion Gap 7 BUN 5 L Creatinine 1.06 Estimated GFR 72 L POC Glucose Random Glucose 134 H Calcium 8.3 L Total Bilirubin 0.4 AST 50 H ALT 23 Alkaline Phosphatase 103 Total Protein 6.4 Albumin 2.7 L Microbiology 11/05/17 18:00 Blood - Other Aerobic Blood Culture - Preliminary No growth in 3 days 11/05/17 18:00 Blood - Other Anaerobic Blood Culture - Preliminary No growth in 3 days 11/05/17 18:00 Blood - Other Aerobic Blood Culture - Preliminary No growth in 3 days 11/05/17 18:00 Blood - Other Anaerobic Blood Culture - Preliminary No growth in 3 days 11/04/17 15:50 Blood - Peripheral Aerobic Blood Culture - Preliminary No growth in 4 days 11/04/17 15:50 Blood - Peripheral Anaerobic Blood Culture - Preliminary No growth in 4 days 11/04/17 15:55 Blood - Peripheral Aerobic Blood Culture - Preliminary No growth in 4 days 11/04/17 15:55 Blood - Peripheral Anaerobic Blood Culture - Preliminary No growth in 4 days Assessment and Plan - Plan This is a 49-year-old male with a history of metastatic breast cancer to the thoracic and lumbar spine, right pelvis and lymph nodes, hypertension and diabetes mellitus. He presents to the emergency room complaining of severe pain involving the right pelvis. No recent fall. Patient is on chronic narcotic on long-acting morphine 50 mg twice a day and Percocet 10 mg every 4-6 hours. Intractable pain with a history of metastatic breast cancer to the thoracic and lumbar spine, right pelvis and left nodes. - Continue long-acting morphine sulfate 50 mg twice a day, Percocet 10 mg every 4 hours and IV morphine 4 mg every 4 hours for breakthrough pain. - Oncology, Palliative care ff - head CT negative Constipation= S/P Manual disimpaction- - continue bowel regimen, + BM - relistor Hypertension. on hydrochlorothiazide and to monitor Diabetes mellitus. Continue metformin and monitor fingersticks and sliding scale coverage. DVT prophylaxis with subcu heparin. FEN -on Glcuerna- - dietitian ff Fever - T down Neutropenia- WBC - up to 3.2 recent chemotherapy- WBC low with ANC 1.6 ff cultures- so far negarive, UA negative ff CBC d/w Oncology-[employer] received IV Vancomycin 11/05. started Vancomycin with neutropenia Palliative care service ff
[2017-11-08] MEDS: Lidocaine 5% Patch T-DERMAL SCH (20:41)
[2017-11-09] MEDS: Vancomycin Inj 1,000 MG in Sodium Chlor 0.9% Inj 250 ML IV.SIG SCH ×2 (01:37→14:28)
[2017-11-09 05:05] LABS: Baso % (Auto) 0.6 % (0.0-2.0); Eos % (Auto) 0.9 % (0.0-4.0); Hematocrit 29.9 % (39.0-51.0); Hemoglobin 10.2 gm/dL (13.0-17.0); Lymph # (Auto) 0.9 th/mm3 (1.0-4.8); Lymph % (Auto) 18.2 % (9.0-44.0); Mean Corpuscular Hemoglobin 31.7 pg (27.0-34.0); Mean Corpuscular Volume 93.1 fL (80.0-100.0); Mean Platelet Volume 8.5 fL (7.0-11.0); Mono # (Auto) 0.1 th/mm3 (0.0-0.9); Mono % (Auto) 1.6 % (0.0-8.0); Neut # (Auto) 3.7 th/mm3 (1.8-7.7); Neut % (Auto) 78.7 % (16.0-70.0); Platelet Count 209 th/mm3 (150-450); Red Blood Count 3.21 mil/mm3 (4.50-5.90); Red Cell Distribution Width 15.7 % (11.6-17.2); White Blood Count 4.7 th/mm3 (4.0-11.0)
[2017-11-09 05:24] LABS: Alanine Aminotransferase 23 U/L (12-78); Albumin 2.8 g/dL (3.4-5.0); Anion Gap 8 meq/L (5-15); Aspartate Aminotransferase 44 U/L (15-37); Blood Urea Nitrogen 11 mg/dL (7-18); Calcium 8.7 mg/dL (8.5-10.1); Carbon Dioxide 26.7 meq/L (21.0-32.0); Chloride 108 meq/L (98-107); Glomerular Filtration Rate 66 mL/min (>89); Glucose,Random 105 mg/dL (74-106); Potassium 3.9 meq/L (3.5-5.1); Sodium 143 meq/L (136-145)
[2017-11-09 05:27] LABS: Alkaline Phosphatase 94 U/L (45-117); Total Protein 6.4 g/dL (6.4-8.2)
[2017-11-09] MEDS: Morphine Sulfate 30 MG SR Tablet PO SCH ×2 (08:08→21:16)
[2017-11-09] MEDS: Heparin - SQ 10,000 UNITS/ML Vial SQ SCH ×2 (08:08→21:14)
[2017-11-09] MEDS: Ferrous Sulfate 325 MG Tablet PO SCH ×2 (08:09→21:16)
[2017-11-09] MEDS: hydroCHLOROthiazide 25 MG Tablet PO SCH (08:10)
[2017-11-09] MEDS: Senna/Docusate Sodium 8.6/50 MG Tablet PO SCH ×2 (08:10→21:16)
[2017-11-09] MEDS: Insulin NovoLOG Aspart Correctional Sugar Inj SQ SCH ×4 (08:15→21:32)
--- NOTE | 2017-11-09 10:30 | P.PNONC ---
Subjective Interval history: Afebrile Patient sitting up in bed in no obvious distress Reports his pain is somewhat better controlled Asking to have his lactulose changed to every 8 hours as needed Anxious to continue with chemotherapy Objective Vital Signs/Intake & Output: Vital Signs 11/08/17 10:54 11/08/17 12:00 11/08/17 16:00 Temperature 98.1 F 98.3 F 98.8 F Pulse Rate 71 78 80 Respiratory Rate 16 18 18 Blood Pressure 120/68 123/72 138/78 Pulse Oximetry 99 95 95 11/08/17 19:32 11/08/17 19:45 11/08/17 19:56 Temperature 98.2 F Pulse Rate 81 78 Respiratory Rate 16 16 Blood Pressure 143/73 H Pulse Oximetry 96 11/08/17 23:59 11/09/17 00:11 11/09/17 03:38 Temperature 98.2 F 97.7 F Pulse Rate 80 75 80 Respiratory Rate 18 18 Blood Pressure 137/77 123/75 Pulse Oximetry 96 98 11/09/17 04:00 11/09/17 07:28 11/09/17 07:45 Temperature Pulse Rate 76 68 Respiratory Rate 18 Blood Pressure Pulse Oximetry 11/09/17 08:03 Temperature 98.4 F Pulse Rate 77 Respiratory Rate 18 Blood Pressure 139/80 Pulse Oximetry 97 Intake & Output 11/08/17 11/09/17 11/09/17 18:59 06:59 18:59 Intake Total 800 / 800 2250 / 2250 Output Total 2500 / 2500 925 / 925 800 / 800 Balance -1700 / -1700 1325 / 1325 -800 / -800 Weight 287 lb 7.724 oz Intake: IV 800 / 800 1530 / 1530 NS Inj 1,000 ML @ 100 mls/hr IV 800 / 800 1000 / 1000 .CONT .Q10H [facility] Rx#:[id number] Vancomycin Inj 1,000 MG In NS 530 / 530 Inj 250 ML @ 250 mls/hr IV.SIG Q12H [facility] Rx#:[id number] Oral 720 / 720 Output: Urine 2500 / 2500 925 / 925 800 / 800 Other: Date of Last Bowel Movement 11/08/17 11/08/17 11/08/17 # Bowel Movements 1 Result Diagrams: 11/09/17 03:50 11/09/17 03:50 Laboratory Results: Laboratory Results - last 24 hr 11/08/17 11/09/17 11/09/17 20:47 03:50 03:50 WBC 4.7 D RBC 3.21 L Hgb 10.2 L Hct 29.9 L MCV 93.1 MCH 31.7 MCHC 34.0 RDW 15.7 Plt Count 209 MPV 8.5 Neut % (Auto) 78.7 H Lymph % (Auto) 18.2 [place] % (Auto) 1.6 Eos % (Auto) 0.9 Baso % (Auto) 0.6 Neut # (Auto) 3.7 Lymph # (Auto) 0.9 L [place] # (Auto) 0.1 Eos # (Auto) 0.0 Baso # (Auto) 0.0 WBC Differential . Differential Comment Auto diff final Sodium 143 Potassium 3.9 Chloride 108 H Carbon Dioxide 26.7 Anion Gap 8 BUN 11 Creatinine 1.14 Estimated GFR 66 L POC Glucose 142 H Random Glucose 105 Calcium 8.7 Total Bilirubin 0.4 AST 44 H ALT 23 Alkaline Phosphatase 94 Total Protein 6.4 Albumin 2.8 L 11/09/17 08:00 WBC RBC Hgb Hct MCV MCH MCHC RDW Plt Count MPV Neut % (Auto) Lymph % (Auto) [place] % (Auto) Eos % (Auto) Baso % (Auto) Neut # (Auto) Lymph # (Auto) [place] # (Auto) Eos # (Auto) Baso # (Auto) WBC Differential Differential Comment Sodium Potassium Chloride Carbon Dioxide Anion Gap BUN Creatinine Estimated GFR POC Glucose 112 H Random Glucose Calcium Total Bilirubin AST ALT Alkaline Phosphatase Total Protein Albumin Culture Results: Microbiology 11/05/17 18:00 Aerobic Blood Culture - Preliminary Blood - Other No growth in 3 days Anaerobic Blood Culture - Preliminary No growth in 3 days 11/05/17 18:00 Aerobic Blood Culture - Preliminary Blood - Other No growth in 3 days Anaerobic Blood Culture - Preliminary No growth in 3 days 11/04/17 15:50 Aerobic Blood Culture - Preliminary Blood - Peripheral No growth in 4 days Anaerobic Blood Culture - Preliminary No growth in 4 days 11/04/17 15:55 Aerobic Blood Culture - Preliminary Blood - Peripheral No growth in 4 days Anaerobic Blood Culture - Preliminary No growth in 4 days Medications: Active Medications Generic Name Dose Route Start Last Admin Trade Name Freq PRN Reason Stop Dose Admin Acetaminophen 650 mg 11/04/17 18:29 11/05/17 17:06 Tylenol PO 650 mg Q4H PRN Administration Temp > 100.4 Bisacodyl 10 mg 11/04/17 18:29 11/06/17 22:42 Dulcolax Supp RECTAL 10 mg DAILY PRN Administration SEVERE CONSITIPATION Dexamethasone 4 mg 11/06/17 09:00 11/09/17 08:10 Decadron PO 4 mg DAILY [facility] Administration Ferrous Sulfate 325 mg 11/04/17 21:00 11/09/17 08:09 Ferosul PO 325 mg BID [facility] Administration Heparin Sodium (Porcine) 5,000 units 11/04/17 21:00 11/09/17 08:08 Heparin Inj SQ 5,000 units Q12HR [facility] Administration Hydrochlorothiazide 25 mg 11/05/17 09:00 11/09/17 08:10 Hydrodiuril PO 25 mg DAILY [facility] Administration Sodium Chloride 1,000 mls @ 100 mls/hr 11/04/17 18:30 11/08/17 23:59 Ns Inj IV.CONT 100 mls/hr .Q10H [facility] Administration Vancomycin HCl 1,000 mg/ 250 mls @ 250 mls/hr 11/06/17 14:00 11/09/17 03:00 Sodium Chloride IV.SIG Infused Q12H [facility] Infusion Insulin Aspart 0 unit 11/04/17 21:00 11/09/17 08:15 Novolog Insulin Correctional Sugar Inj SQ Not Given ACHS [facility] Protocol Lactulose 30 ml 11/05/17 07:26 11/06/17 15:18 Lactulose Liq PO 30 ml TID PRN Administration SEVERE CONSITIPATION Lactulose 30 ml 11/06/17 21:00 11/09/17 08:09 Lactulose Liq PO 30 ml BID [facility] Administration Lidocaine HCl 2 patch 11/04/17 21:00 11/08/17 20:41 Lidoderm 5% Patch.12 Hr T-DERMAL 2 patch Q24H [facility] Administration Metformin HCl 500 mg 11/05/17 09:00 11/09/17 08:09 Glucophage PO 500 mg DAILY [facility] Administration Morphine Sulfate 4 mg 11/04/17 18:31 11/07/17 00:45 Morphine Inj IV.PUSH 4 mg Q3H PRN Administration BREAKTHROUGH PAIN Morphine Sulfate 30 mg 11/04/17 21:00 11/09/17 08:08 Oramorph Sr PO 30 mg BID [facility] Administration Ondansetron HCl 4 mg 11/04/17 18:29 11/08/17 15:49 Zofran Inj IV.PUSH 4 mg Q6H PRN Administration NAUSEA OR VOMITING Oxycodone HCl 10 mg 11/06/17 16:24 11/09/17 08:14 Roxicodone PO 5 mg Q4H PRN Administration PAIN SCALE 1-5 Oxycodone HCl 15 mg 11/06/17 16:26 11/07/17 08:56 Roxicodone PO 15 mg Q4H PRN Administration PAIN SCALE 6-10 Pantoprazole Sodium 40 mg 11/06/17 09:00 11/09/17 08:10 Protonix PO 40 mg DAILY [facility] Administration Patch Removal 1 each 11/05/17 09:00 11/08/17 10:52 Remove Old Patch T-DERMAL 1 each DAILY [facility] Administration Senna/Docusate Sodium 2 tab 11/06/17 21:00 11/09/17 08:10 Mary-Colace PO 2 tab BID [facility] Administration Objective Remarks: GENERAL: Obese male patient, who appears older than stated age, lying in bed. In no acute distress. SKIN: Warm and dry. HEAD: Normocephalic. EYES: No scleral icterus. No injection or drainage. NECK: Supple, trachea midline. CARDIOVASCULAR: +S1/S2 without murmurs. RESPIRATORY: Mild expiratory wheeze to right lobe. GASTROINTESTINAL: Abdomen large, soft, non-tender, nondistended. EXTREMITIES: No cyanosis, or edema. MUSCULOSKELETAL: Adequate muscle tone. NEUROLOGICAL: No obvious focal deficit. Awake, alert, and oriented x3. Assessment/Plan - Plan This is a 57-year-old gentleman with metastatic breast cancer. He was first diagnosed with left breast cancer in 2012, he had a bilateral mastectomy. Pathology showed a 6.5 cm infiltrating ductal carcinoma, moderately differentiated with 2/8 lymph nodes positive for metastatic disease. Hormone receptor positive, HER-2 negative. Treated with dose-dense chemotherapy followed by chest wall radiation. Patient was on tamoxifen until he developed metastatic bone disease in 2016. PET scan showed hypermetabolic lesion thoracic spine, lumbar spine, left iliac wing and ribs. He also developed subcutaneous metastatic nodule. Biopsy of the left iliac bone lesion showed metastatic poorly differentiated carcinoma consistent with breast primary. This was hormone receptor +. He was treated with Xeloda October 2016 and had good response, recently he developed progression of bone disease and was started on Taxol. He had 2 infusions of Taxol before developing an allergic infusion reaction. He stopped the Taxol for about 2 weeks. He has recently received his first cycle of Abraxane. Patient was admitted to the hospital for intractable bone pain due to metastatic disease. Plan: 1. Plan for Abraxane inpatient tomorrow 2. Discussed with Dr. Cordova; patient will be simulated either tomorrow or Thursday for palliative radiation 3. Change lactulose to every 8 hours as needed for constipation - Attending Statement The exam, history, and the medical decision-making described in the above note were completed with the assistance of the mid-level provider. I reviewed and agree with the findings presented. I attest that I had a [id number] encounter with the patient on the same day, and personally performed and documented my assessment and findings in the medical record.Pain is better controlled. He has many questions regarding the cancer treatment which we discussed. Plan to give him week 2 Abraxane tomorrow. Awaiting simulation for palliative XRT. Continue supportive care.
[2017-11-09] MEDS: Sod Chloride 0.9% Inj 1,000 ML IV.CONT SCH ×2 (12:01→21:14)
--- NOTE | 2017-11-09 13:13 | P.PNPAL ---
Reason for Visit Reason for visit: a. To assist with evaluation and management of symptoms including: pain; constipation b. To assist medical decision maker(s) with: better understanding of current medical conditions; weighing benefits/burdens of medical treatment options; making medical treatment decisions. Subjective Subjective/Interval History: Patient reports he has had some improvement over the weekend with pain, constipation, as well as nausea/vomiting. His pain is adequately controlled with sustained release morphine at 30 mg twice daily and with immediate release oxycodone using 5 mg about 4 times/day. He reports his pain level has come down from the persistent level 8 to about level 5 and that is a decrease on a smaller amount of opiate. Unsure if the improvement is due to the dexamethasone or to partial relief of his constipation which he felt was exacerbating his pain. He reports bowels have started to move with the combination of increased senna and with lactulose. He has asked to change lactulose from scheduled to PRN , but I have encouraged him to to try and continue with the lactulose to keep things moving well. He had an episode of nausea/vomiting last night, but reports he felt well today and was able to enjoy a decent breakfast and lunch. He continues to complain of dry mouth. He is sleeping OK. No apparent side effects at this time from the dexamethasone. Denies SOB. I ask him he has been able to become more mobile. He tells me he still feels depleted from an energy standpoint and is hoping to become more active now that the pain is better controlled and he is able to eat. Patient's understanding is that palliative radiation and additional chemo are to start prior to hospital discharge. Family/Friend Interactions: Nephew is at bedside. He listens to the conversation but asks no questions. . Advance Directives Living Will: Never completed Health Care Surrogate: Copy in medical record (Primary: Ban Varma (finoble ) [phone]. Alternate: García Sorenson (nephew) [phone]) Durable Power of Warehouse Operations Associate: Never completed Advance Directives Date on File: 11/06/17 Health Care Surrogate Name and Number: Primary: Ban Varma [phone]. Alt García Sorenson [phone] Documented care wishes:: No writtten documentation of health care goals/preferences . Objective Vital Signs: Vital Signs 11/08/17 16:00 11/08/17 19:32 11/08/17 19:45 Temperature 98.8 F 98.2 F Pulse Rate 80 81 Respiratory Rate 18 16 16 Blood Pressure 138/78 143/73 H Pulse Oximetry 95 96 11/08/17 19:56 11/08/17 23:59 11/09/17 00:11 Temperature 98.2 F Pulse Rate 78 80 75 Respiratory Rate 18 Blood Pressure 137/77 Pulse Oximetry 96 11/09/17 03:38 11/09/17 04:00 11/09/17 07:28 Temperature 97.7 F Pulse Rate 80 76 68 Respiratory Rate 18 Blood Pressure 123/75 Pulse Oximetry 98 11/09/17 07:45 11/09/17 08:03 11/09/17 11:00 Temperature 98.4 F Pulse Rate 77 75 Respiratory Rate 18 18 Blood Pressure 139/80 Pulse Oximetry 97 11/09/17 11:53 Temperature 98.1 F Pulse Rate 69 Respiratory Rate 18 Blood Pressure 141/71 H Pulse Oximetry 97 Intake & Output 11/08/17 11/09/17 11/09/17 18:59 06:59 18:59 Intake Total 800 / 800 2250 / 2250 1000 / 1000 Output Total 2500 / 2500 925 / 925 800 / 800 Balance -1700 / -1700 1325 / 1325 200 / 200 Weight 130.4 kg Intake: IV 800 / 800 1530 / 1530 1000 / 1000 NS Inj 1,000 ML @ 100 mls/hr IV 800 / 800 1000 / 1000 1000 / 1000 .CONT .Q10H [facility] Rx#:[id number] Vancomycin Inj 1,000 MG In NS 530 / 530 Inj 250 ML @ 250 mls/hr IV.SIG Q12H [facility] Rx#:[id number] Oral 720 / 720 Output: Urine 2500 / 2500 925 / 925 800 / 800 Other: Date of Last Bowel Movement 11/08/17 11/08/17 11/08/17 # Bowel Movements 1 Physical Exam: CONSTITUTIONAL/GENERAL: This is morbidly obese male with multiple tattoos, pleasant , cooperative, conversant in an oncology floor medical bed. He appears comfortable at rest. TUBES/LINES/DRAINS: Right chest [id number]. SKIN: Multiple tattoos. No jaundice, rashes, or lesions.No wounds seen anteriorly. Skin temperature appropriate. Not diaphoretic. EYES: Pupils equal and round . Sclerae and conjunctivae clear. fundi not examined. CARDIOVASCULAR: Regular rate and rhythm without murmurs. RESPIRATORY/CHEST: Symmetric, unlabored respirations. Clear to auscultation. Breath sounds equal bilaterally. No wheezes, rales, or rhonchi. GASTROINTESTINAL: Abdomen soft, obese, nondistended. No tenderness. Bowel sounds normal. GENITOURINARY: Without palpable bladder distension. MUSCULOSKELETAL: Extremities without clubbing, cyanosis, or edema. No mottling or clubbing. NEUROLOGICAL: Awake and alert. Motor and sensory grossly within normal limits. Follows commands. Cognitively sharp. Moves all extremities. PSYCHIATRIC: No obvious anxiety/depression. No apparent hallucinations or other psychotic thought process. . Diagnostic Tests Laboratory: Laboratory Results - last 72 hr 11/06/17 11/06/17 11/06/17 13:01 17:41 21:20 WBC RBC Hgb Hct MCV MCH MCHC RDW Plt Count MPV Neut % (Auto) Lymph % (Auto) [place] % (Auto) Eos % (Auto) Baso % (Auto) Neut # (Auto) Lymph # (Auto) [place] # (Auto) Eos # (Auto) Baso # (Auto) WBC Differential Differential Comment Sodium Potassium Chloride Carbon Dioxide Anion Gap BUN Creatinine Estimated GFR POC Glucose 114 H 127 H 113 H Random Glucose Calcium Total Bilirubin AST ALT Alkaline Phosphatase Total Protein Albumin 11/07/17 11/07/17 11/07/17 04:30 04:30 15:53 WBC 3.2 L RBC 3.28 L Hgb 10.4 L Hct 31.3 L MCV 95.5 MCH 31.7 MCHC 33.2 RDW 16.2 Plt Count 137 L MPV 8.2 Neut % (Auto) 61.6 Lymph % (Auto) 23.2 [place] % (Auto) 4.3 Eos % (Auto) 10.2 H Baso % (Auto) 0.7 Neut # (Auto) 2.0 Lymph # (Auto) 0.7 L [place] # (Auto) 0.1 Eos # (Auto) 0.3 Baso # (Auto) 0.0 WBC Differential . Differential Comment Auto diff final Sodium 142 Potassium 3.4 L Chloride 108 H Carbon Dioxide 25.4 Anion Gap 9 BUN 3 L Creatinine 0.96 Estimated GFR 80 L POC Glucose 138 H Random Glucose 97 Calcium 7.6 L Total Bilirubin 0.4 AST 45 H ALT 20 Alkaline Phosphatase 103 Total Protein 6.0 L D Albumin 2.6 L 11/07/17 11/08/17 11/08/17 22:00 04:45 04:45 WBC 3.0 L RBC 3.34 L Hgb 10.6 L Hct 31.3 L MCV 93.7 MCH 31.7 MCHC 33.8 RDW 15.4 Plt Count 177 MPV 8.1 Neut % (Auto) 80.4 H Lymph % (Auto) 17.1 [place] % (Auto) 1.9 Eos % (Auto) 0.3 Baso % (Auto) 0.3 Neut # (Auto) 2.4 Lymph # (Auto) 0.5 L [place] # (Auto) 0.1 Eos # (Auto) 0.0 Baso # (Auto) 0.0 WBC Differential . Differential Comment Auto diff final Sodium 141 Potassium 4.0 Chloride 108 H Carbon Dioxide 26.3 Anion Gap 7 BUN 5 L Creatinine 1.06 Estimated GFR 72 L POC Glucose 157 H Random Glucose 134 H Calcium 8.3 L Total Bilirubin 0.4 AST 50 H ALT 23 Alkaline Phosphatase 103 Total Protein 6.4 Albumin 2.7 L 11/08/17 11/09/17 11/09/17 20:47 03:50 03:50 WBC 4.7 D RBC 3.21 L Hgb 10.2 L Hct 29.9 L MCV 93.1 MCH 31.7 MCHC 34.0 RDW 15.7 Plt Count 209 MPV 8.5 Neut % (Auto) 78.7 H Lymph % (Auto) 18.2 [place] % (Auto) 1.6 Eos % (Auto) 0.9 Baso % (Auto) 0.6 Neut # (Auto) 3.7 Lymph # (Auto) 0.9 L [place] # (Auto) 0.1 Eos # (Auto) 0.0 Baso # (Auto) 0.0 WBC Differential . Differential Comment Auto diff final Sodium 143 Potassium 3.9 Chloride 108 H Carbon Dioxide 26.7 Anion Gap 8 BUN 11 Creatinine 1.14 Estimated GFR 66 L POC Glucose 142 H Random Glucose 105 Calcium 8.7 Total Bilirubin 0.4 AST 44 H ALT 23 Alkaline Phosphatase 94 Total Protein 6.4 Albumin 2.8 L 11/09/17 08:00 WBC RBC Hgb Hct MCV MCH MCHC RDW Plt Count MPV Neut % (Auto) Lymph % (Auto) [place] % (Auto) Eos % (Auto) Baso % (Auto) Neut # (Auto) Lymph # (Auto) [place] # (Auto) Eos # (Auto) Baso # (Auto) WBC Differential Differential Comment Sodium Potassium Chloride Carbon Dioxide Anion Gap BUN Creatinine Estimated GFR POC Glucose 112 H Random Glucose Calcium Total Bilirubin AST ALT Alkaline Phosphatase Total Protein Albumin Result Diagrams: 11/09/17 03:50 11/09/17 03:50 Microbiology: Microbiology 11/05/17 18:00 Aerobic Blood Culture - Preliminary Blood - Other No growth in 4 days Anaerobic Blood Culture - Preliminary No growth in 4 days 11/05/17 18:00 Aerobic Blood Culture - Preliminary Blood - Other No growth in 4 days Anaerobic Blood Culture - Preliminary No growth in 4 days 11/04/17 15:50 Aerobic Blood Culture - Final Blood - Peripheral No growth in 5 days Anaerobic Blood Culture - Final No growth in 5 days 11/04/17 15:55 Aerobic Blood Culture - Final Blood - Peripheral No growth in 5 days Anaerobic Blood Culture - Final No growth in 5 days Imaging: Chest X-Ray 11/04/17 15:48 CONCLUSION: Persistent right perihilar soft tissue density which appears stable to slightly decreased in size as compared to the prior CT. No new parenchymal abnormality seen. Head CT 11/05/17 00:00 CONCLUSION: Negative CT Head with and without contrast. Knee X-Ray 11/05/17 00:00 CONCLUSION: Mild degenerative changes as described above. Lumbar Spine MRI 11/05/17 00:00 CONCLUSION: 1. Some evidence of increased metastatic disease to bone with new focus in L1 2. Severe canal stenosis related to dorsal bony retropulsion and disc protrusion at L3-4 which appears grossly unchanged Pelvis MRI 11/05/17 00:00 CONCLUSION: Findings of extensive osseous metastatic disease as above. Avascular necrosis versus metastatic disease left femoral head Shoulder X-Ray 11/05/17 00:00 CONCLUSION: 1. Destructive process in the distal aspect of the right clavicle with a mottled appearance along the lateral border of the scapula concerning for metastatic disease. These were present previously. 2. Slight expansile process in the lateral aspect of rib #7 on the right. Diagnostic considerations include an old healed rib fracture or additional metastatic deposit. This was present as well previously. 3. Proximal humerus remains intact. . Assessment and Plan - Disease Oriented Problem List (1) Bone metastases (2) Metastasis from breast cancer (3) Low grade fever (4) Diabetes mellitus - Symptom Scale (1) Constipation 0-10 Scale: Unable to quantify (2) Pain 0-10 Scale: 5 Pertinent Non-Medical Issues: Psychosocial: Born in [facility]. Moved to [place] in 1983. 10th grade education. No service. 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 Has a marine oil terminal superintendent "fiancee" but says he will not be able to for financial reasons. No children. Both parents . Has a sister. Close to a nephew - - Brain Delta. Patient lives with his finoblee, her mother, and his uncle. Spiritual: Adventism and spirituality have not played an important role in his life. Legal: Health care surrogate completed 11/06/2017. Ethical issues impacting care: Patient is capacitated to make his own health care decisions at this time. . Important Contacts: * Ban Varma, primary HCS/significant other: [phone] * Hilton Sorenson, alternate HCS/nephew: [phone] Prognosis: Patient has been battling metastatic breast since 2012. Disease is progressing. He is losing weight. Pain is growing worse. Pain is keeping him mostly chair bound. On the other hand , he may still have some chemotherapy options that will slow the progress of his disease and patient's goals are still aggressive. Should treatment be unable to get him more mobile, life expectancy is probably in the order of months. Given the extent of his illness, at such time that patient no longer wants to pursue aggressive cancer directed therapies, he would be eligible for hospice care. . Code Status: Full Code Plan: == Code Status: FULL CODE. Patient wants resuscitation to be attempted and wants a "time limited trial of aggressive care." Should he end up on life support, he does not want to be maintained there if the doctors feel there is little chance of him returning to a life with quality. == Decision making: patient is currently capacitated to make his own health care decisions. Health care surrogate completed (11/06/17). Primary HCS: Ban Brentzil (fiance); Alternate HCS: García Delta (nephew) == Goals of medical treatment: Patient wants his pain and constipation controlled. He wants to pursue any additional cancer directed treatments that might help to slow the progress of his disease. == Symptoms: * Pain: Most of patient's pain appears to be "bone" pain from metastatic disease and it is primarily located in metastatic areas. There is also a neuropathic component on the right where pain radiates down from the right hip toward the right knee and is associated with numbness. Pain is exacerbated by constipation and the constipation creates its own type of pain. * Constipation: This is severe and is certainly exacerbated by opioids. * Dry mouth == PLAN * Will continue with current pain regimen as it appears to be working. Should this fail or pain grow worse, recommend changing long acting opioid from morphine to methadone at 10 mg po q 8 hours ATC. There is anecdotal evidence that methadone is less constipating and may be more helpful for the neuropathic component of the pain. * Patient has asked to decrease the PRN oxycodone to 5-10 q 4 hours prn. Order has been changed. * Patient has asked that his lactulose be changed from scheduled to PRN , but have encouraged patient and nurse to try and achieve two bowel movements per day. * Have asked nurse to provide patient with mouth moisturizer. * Recommend stopping the ferrous sulfate if oncology/hematology agrees --Hgb is 11.0 and the iron may be exacerbating gut discomfort. == Disposition: We will want to get pain under better control and get bowels moving adequately before discharge. As patient has essentially been chair- bound for months, he would probably benefit from some physical therapy to become ambulatory again once pain is controlled. == Patient has indicated that he would like more information on life expectancy so he can plan better, would appreciate oncology guidance. == Palliative care will continue to follow to assist with symptom management and to further clarify goals of medical treatment as the clinical course evolves. . Attestation Attestation: To help prompt me to consider important information that might be impacting today's encounter and assessment, information from prior notes written by myself or my colleagues may have been "brought forward" into today's note. My signature on this note, however, is an attestation that I personally performed the exam, history, and/or decision-making noted today, and, unless otherwise indicated, the interactions with patient, family, and staff as well as the review of records all occurred today. I also attest that the listed assessment and stated plan reflect my best clinical judgment today based on the combination of historical information, prior notes, and today's exam/ interactions. When time spent is documented, it refers only to time spent today by the signer, or if indicated, combined time spent today by collaborating physician/nurse practitioner.
[2017-11-09] MEDS: Morphine Inj 4 MG/ML Vial IV.PUSH PRN (14:37)
--- NOTE | 2017-11-09 15:27 | P.PN ---
Subjective Interval history: feels good ate very well for breakfast and lunch no nausea or vomiting had a good BM yesterday today + flatus "it's coming" no pain Physical Exam Vital signs: Vital Signs 11/08/17 16:00 11/08/17 19:32 11/08/17 19:45 Temperature 98.8 F 98.2 F Pulse Rate 80 81 Respiratory Rate 18 16 16 Blood Pressure 138/78 143/73 H Pulse Oximetry 95 96 11/08/17 19:56 11/08/17 23:59 11/09/17 00:11 Temperature 98.2 F Pulse Rate 78 80 75 Respiratory Rate 18 Blood Pressure 137/77 Pulse Oximetry 96 11/09/17 03:38 11/09/17 04:00 11/09/17 07:28 Temperature 97.7 F Pulse Rate 80 76 68 Respiratory Rate 18 Blood Pressure 123/75 Pulse Oximetry 98 11/09/17 07:45 11/09/17 08:03 11/09/17 11:00 Temperature 98.4 F Pulse Rate 77 75 Respiratory Rate 18 18 Blood Pressure 139/80 Pulse Oximetry 97 11/09/17 11:53 11/09/17 14:19 11/09/17 14:53 Temperature 98.1 F Pulse Rate 69 74 Respiratory Rate 18 16 Blood Pressure 141/71 H Pulse Oximetry 97 Intake & Output 11/08/17 11/09/17 11/09/17 18:59 06:59 18:59 Intake Total 800 / 800 2250 / 2250 1000 / 1000 Output Total 2500 / 2500 925 / 925 800 / 800 Balance -1700 / -1700 1325 / 1325 200 / 200 Weight 130.4 kg Intake: IV 800 / 800 1530 / 1530 1000 / 1000 NS Inj 1,000 ML @ 100 mls/hr IV 800 / 800 1000 / 1000 1000 / 1000 .CONT .Q10H [facility] Rx#:[id number] Vancomycin Inj 1,000 MG In NS 530 / 530 Inj 250 ML @ 250 mls/hr IV.SIG Q12H [facility] Rx#:[id number] Oral 720 / 720 Output: Urine 2500 / 2500 925 / 925 800 / 800 Other: Date of Last Bowel Movement 11/08/17 11/08/17 11/08/17 # Bowel Movements 1 Narrative: awake and alert, oriented x 3, speech clear anicteric neck supple, lungs- no rales regular rhythm abdomen- flabby, soft, good bowel sounds extremities no edema moves all extremities spontaneously no calf swelling or tenderness Results - Labs CBC & Chem 7: 11/09/17 03:50 11/09/17 03:50 Laboratory Results - last 24 hr 11/08/17 11/09/17 11/09/17 20:47 03:50 03:50 WBC 4.7 D RBC 3.21 L Hgb 10.2 L Hct 29.9 L MCV 93.1 MCH 31.7 MCHC 34.0 RDW 15.7 Plt Count 209 MPV 8.5 Neut % (Auto) 78.7 H Lymph % (Auto) 18.2 [place] % (Auto) 1.6 Eos % (Auto) 0.9 Baso % (Auto) 0.6 Neut # (Auto) 3.7 Lymph # (Auto) 0.9 L [place] # (Auto) 0.1 Eos # (Auto) 0.0 Baso # (Auto) 0.0 WBC Differential . Differential Comment Auto diff final Sodium 143 Potassium 3.9 Chloride 108 H Carbon Dioxide 26.7 Anion Gap 8 BUN 11 Creatinine 1.14 Estimated GFR 66 L POC Glucose 142 H Random Glucose 105 Calcium 8.7 Total Bilirubin 0.4 AST 44 H ALT 23 Alkaline Phosphatase 94 Total Protein 6.4 Albumin 2.8 L 11/09/17 08:00 WBC RBC Hgb Hct MCV MCH MCHC RDW Plt Count MPV Neut % (Auto) Lymph % (Auto) [place] % (Auto) Eos % (Auto) Baso % (Auto) Neut # (Auto) Lymph # (Auto) [place] # (Auto) Eos # (Auto) Baso # (Auto) WBC Differential Differential Comment Sodium Potassium Chloride Carbon Dioxide Anion Gap BUN Creatinine Estimated GFR POC Glucose 112 H Random Glucose Calcium Total Bilirubin AST ALT Alkaline Phosphatase Total Protein Albumin Microbiology 11/05/17 18:00 Blood - Other Aerobic Blood Culture - Preliminary No growth in 4 days 11/05/17 18:00 Blood - Other Anaerobic Blood Culture - Preliminary No growth in 4 days 11/05/17 18:00 Blood - Other Aerobic Blood Culture - Preliminary No growth in 4 days 11/05/17 18:00 Blood - Other Anaerobic Blood Culture - Preliminary No growth in 4 days 11/04/17 15:50 Blood - Peripheral Aerobic Blood Culture - Final No growth in 5 days 11/04/17 15:50 Blood - Peripheral Anaerobic Blood Culture - Final No growth in 5 days 11/04/17 15:55 Blood - Peripheral Aerobic Blood Culture - Final No growth in 5 days 11/04/17 15:55 Blood - Peripheral Anaerobic Blood Culture - Final No growth in 5 days Assessment and Plan - Plan This is a 49-year-old male with a history of metastatic breast cancer to the thoracic and lumbar spine, right pelvis and lymph nodes, hypertension and diabetes mellitus. He presents to the emergency room complaining of severe pain involving the right pelvis. No recent fall. Patient is on chronic narcotic on long-acting morphine 50 mg twice a day and Percocet 10 mg every 4-6 hours. Intractable pain with a history of metastatic breast cancer to the thoracic and lumbar spine, right pelvis and left nodes. - pain controlled - Continue long-acting morphine sulfate 50 mg twice a day, Percocet 10 mg every 4 hours and IV morphine 4 mg every 4 hours for breakthrough pain. - Oncology, Palliative care ff - head CT negative Constipation= S/P Manual disimpaction- - continue bowel regimen, + BMs - relistor Hypertension. on hydrochlorothiazide and to monitor Diabetes mellitus. Continue metformin and monitor fingersticks and sliding scale coverage. DVT prophylaxis with subcu heparin. 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 on Vancomycin with neutropenia Palliative care service ff
[2017-11-09] MEDS: Lidocaine 5% Patch T-DERMAL SCH (21:18)
[2017-11-10] MEDS: Vancomycin Inj 1,000 MG in Sodium Chlor 0.9% Inj 250 ML IV.SIG SCH ×2 (01:54→13:37)
[2017-11-10 06:05] LABS: Baso % (Auto) 1.2 % (0.0-2.0); Eos # (Auto) 0.3 th/mm3 (0.0-0.4); Eos % (Auto) 6.8 % (0.0-4.0); Hematocrit 29.6 % (39.0-51.0); Hemoglobin 9.9 gm/dL (13.0-17.0); Lymph # (Auto) 0.9 th/mm3 (1.0-4.8); Lymph % (Auto) 21.9 % (9.0-44.0); Mean Corpuscular HGB Conc 33.5 % (32.0-36.0); Mean Corpuscular Hemoglobin 31.6 pg (27.0-34.0); Mean Corpuscular Volume 94.3 fL (80.0-100.0); Mean Platelet Volume 8.3 fL (7.0-11.0); Mono # (Auto) 0.1 th/mm3 (0.0-0.9); Mono % (Auto) 2.9 % (0.0-8.0); Neut # (Auto) 2.8 th/mm3 (1.8-7.7); Neut % (Auto) 67.2 % (16.0-70.0); Platelet Count 229 th/mm3 (150-450); Red Blood Count 3.14 mil/mm3 (4.50-5.90); Red Cell Distribution Width 15.7 % (11.6-17.2); White Blood Count 4.1 th/mm3 (4.0-11.0)
[2017-11-10 06:23] LABS: Albumin 2.7 g/dL (3.4-5.0); Anion Gap 10 meq/L (5-15); Aspartate Aminotransferase 37 U/L (15-37); Blood Urea Nitrogen 16 mg/dL (7-18); Calcium 8.7 mg/dL (8.5-10.1); Carbon Dioxide 26.3 meq/L (21.0-32.0); Chloride 103 meq/L (98-107); Glomerular Filtration Rate 63 mL/min (>89); Glucose,Random 96 mg/dL (74-106); Sodium 139 meq/L (136-145)
[2017-11-10 06:27] LABS: Alanine Aminotransferase 24 U/L (12-78); Alkaline Phosphatase 86 U/L (45-117); Total Protein 6.2 g/dL (6.4-8.2)
[2017-11-10] MEDS: Sod Chloride 0.9% Inj 1,000 ML IV.CONT SCH ×3 (07:06→22:33)
[2017-11-10] MEDS: hydroCHLOROthiazide 25 MG Tablet PO SCH (09:58)
[2017-11-10] MEDS: Senna/Docusate Sodium 8.6/50 MG Tablet PO SCH ×2 (09:59→20:24)
[2017-11-10] MEDS: Ferrous Sulfate 325 MG Tablet PO SCH ×2 (09:59→20:24)
[2017-11-10] MEDS: Morphine Sulfate 30 MG SR Tablet PO SCH ×2 (09:59→20:24)
[2017-11-10] MEDS: Heparin - SQ 10,000 UNITS/ML Vial SQ SCH ×2 (10:00→20:22)
[2017-11-10] MEDS: Insulin NovoLOG Aspart Correctional Sugar Inj SQ SCH ×4 (10:04→20:26)
[2017-11-10] MEDS ORDERED: Granisetron 1 MG/ML Vial IV.PUSH ONE (14:30)
[2017-11-10] MEDS ORDERED: PACLITAXEL PROTEIN BOUND IV.SIG ONE (15:00)
--- NOTE | 2017-11-10 15:54 | P.PNONC ---
Subjective Interval history: Patient seen earlier in the day. Afebrile, lying in bed in no acute distress. Patient awaiting chemotherapy today. He is scheduled for radiation simulation tomorrow. Objective Vital Signs/Intake & Output: Vital Signs 11/09/17 17:40 11/09/17 20:00 11/09/17 20:55 Temperature 98.2 F 97.5 F L Pulse Rate 67 68 74 Respiratory Rate 20 18 Blood Pressure 129/73 126/75 Pulse Oximetry 98 96 11/10/17 00:00 11/10/17 00:04 11/10/17 04:00 Temperature 98.1 F 97.9 F Pulse Rate 66 81 60 Respiratory Rate 18 18 Blood Pressure 123/73 122/73 Pulse Oximetry 99 95 11/10/17 04:05 11/10/17 08:00 11/10/17 11:52 Temperature 98.3 F Pulse Rate 69 62 69 Respiratory Rate 20 Blood Pressure 137/76 Pulse Oximetry 97 11/10/17 12:00 Temperature 98.2 F Pulse Rate 70 Respiratory Rate 18 Blood Pressure 130/66 Pulse Oximetry 95 Intake & Output 11/09/17 11/10/17 11/10/17 18:59 06:59 18:59 Intake Total 3465 / 3465 2225 / 2225 1000 / 1000 Output Total 3300 / 3300 2400 / 2400 400 / 400 Balance 165 / 165 -175 / -175 600 / 600 Weight 128.4 kg 127.1 kg Intake: IV 1265 / 1265 1265 / 1265 1000 / 1000 NS Inj 1,000 ML @ 100 mls/hr IV 1000 / 1000 1000 / 1000 1000 / 1000 .CONT .Q10H [facility] Rx#:[id number] Vancomycin Inj 1,000 MG In NS 265 / 265 265 / 265 Inj 250 ML @ 250 mls/hr IV.SIG Q12H [facility] Rx#:[id number] Oral 2200 / 2200 960 / 960 Output: Urine 3300 / 3300 2400 / 2400 400 / 400 Other: Date of Last Bowel Movement 11/08/17 11/08/17 Result Diagrams: 11/10/17 04:20 11/10/17 04:20 Laboratory Results: Laboratory Results - last 24 hr 11/09/17 11/09/17 11/10/17 17:25 21:31 04:20 WBC 4.1 RBC 3.14 L Hgb 9.9 L Hct 29.6 L MCV 94.3 MCH 31.6 MCHC 33.5 RDW 15.7 Plt Count 229 MPV 8.3 Neut % (Auto) 67.2 Lymph % (Auto) 21.9 [place] % (Auto) 2.9 Eos % (Auto) 6.8 H Baso % (Auto) 1.2 Neut # (Auto) 2.8 Lymph # (Auto) 0.9 L [place] # (Auto) 0.1 Eos # (Auto) 0.3 Baso # (Auto) 0.0 WBC Differential . Differential Comment Auto diff final Sodium Potassium Chloride Carbon Dioxide Anion Gap BUN Creatinine Estimated GFR POC Glucose 111 H 141 H Random Glucose Calcium Total Bilirubin AST ALT Alkaline Phosphatase Total Protein Albumin 11/10/17 11/10/17 04:20 08:27 WBC RBC Hgb Hct MCV MCH MCHC RDW Plt Count MPV Neut % (Auto) Lymph % (Auto) [place] % (Auto) Eos % (Auto) Baso % (Auto) Neut # (Auto) Lymph # (Auto) [place] # (Auto) Eos # (Auto) Baso # (Auto) WBC Differential Differential Comment Sodium 139 Potassium 4.0 Chloride 103 Carbon Dioxide 26.3 Anion Gap 10 BUN 16 Creatinine 1.19 Estimated GFR 63 L POC Glucose 107 Random Glucose 96 Calcium 8.7 Total Bilirubin 0.3 AST 37 ALT 24 Alkaline Phosphatase 86 Total Protein 6.2 L Albumin 2.7 L Culture Results: Microbiology 11/05/17 18:00 Aerobic Blood Culture - Final Blood - Other No growth in 5 days Anaerobic Blood Culture - Final No growth in 5 days 11/05/17 18:00 Aerobic Blood Culture - Final Blood - Other No growth in 5 days Anaerobic Blood Culture - Final No growth in 5 days 11/04/17 15:50 Aerobic Blood Culture - Final Blood - Peripheral No growth in 5 days Anaerobic Blood Culture - Final No growth in 5 days 11/04/17 15:55 Aerobic Blood Culture - Final Blood - Peripheral No growth in 5 days Anaerobic Blood Culture - Final No growth in 5 days Medications: Active Medications Generic Name Dose Route Start Last Admin Trade Name Freq PRN Reason Stop Dose Admin Acetaminophen 650 mg 11/04/17 18:29 11/05/17 17:06 Tylenol PO 650 mg Q4H PRN Administration Temp > 100.4 Bisacodyl 10 mg 11/04/17 18:29 11/06/17 22:42 Dulcolax Supp RECTAL 10 mg DAILY PRN Administration SEVERE CONSITIPATION Dexamethasone 4 mg 11/06/17 09:00 11/10/17 09:59 Decadron PO 4 mg DAILY [facility] Administration Ferrous Sulfate 325 mg 11/04/17 21:00 11/10/17 09:59 Ferosul PO 325 mg BID [facility] Administration Heparin Sodium (Porcine) 5,000 units 11/04/17 21:00 11/10/17 10:00 Heparin Inj SQ 5,000 units Q12HR [facility] Administration Hydrochlorothiazide 25 mg 11/05/17 09:00 11/10/17 09:58 Hydrodiuril PO 25 mg DAILY [facility] Administration Sodium Chloride 1,000 mls @ 100 mls/hr 11/04/17 18:30 11/10/17 10:05 Ns Inj IV.CONT Infused .Q10H [facility] Infusion Vancomycin HCl 1,000 mg/ 250 mls @ 250 mls/hr 11/06/17 14:00 11/10/17 13:37 Sodium Chloride IV.SIG 250 mls/hr Q12H [facility] Administration Insulin Aspart 0 unit 11/04/17 21:00 11/10/17 13:37 Novolog Insulin Correctional Sugar Inj SQ Not Given ACHS [facility] Protocol Lactulose 30 ml 11/09/17 10:32 11/10/17 13:41 Lactulose Liq PO 30 ml TID PRN Administration severe constipation Lidocaine HCl 2 patch 11/04/17 21:00 11/09/17 21:18 Lidoderm 5% Patch.12 Hr T-DERMAL 2 patch Q24H [facility] Administration Metformin HCl 500 mg 11/05/17 09:00 11/10/17 09:58 Glucophage PO 500 mg DAILY [facility] Administration Morphine Sulfate 4 mg 11/04/17 18:31 11/09/17 14:37 Morphine Inj IV.PUSH 4 mg Q3H PRN Administration BREAKTHROUGH PAIN Morphine Sulfate 30 mg 11/04/17 21:00 11/10/17 09:59 Oramorph Sr PO 30 mg BID [facility] Administration Ondansetron HCl 4 mg 11/04/17 18:29 11/08/17 15:49 Zofran Inj IV.PUSH 4 mg Q6H PRN Administration NAUSEA OR VOMITING Oxycodone HCl 5 mg 11/09/17 12:49 11/10/17 13:41 Roxicodone PO 5 mg Q4H PRN Administration PAIN SCALE 1-5 Pantoprazole Sodium 40 mg 11/06/17 09:00 11/10/17 10:00 Protonix PO 40 mg DAILY [facility] Administration Patch Removal 1 each 11/05/17 09:00 11/10/17 10:01 Remove Old Patch T-DERMAL 1 each DAILY [facility] Administration Senna/Docusate Sodium 2 tab 11/06/17 21:00 11/10/17 09:59 Mary-Colace PO 2 tab BID [facility] Administration Sennosides 17.2 mg 11/04/17 18:29 11/09/17 11:59 Senokot PO 17.2 mg Q12H PRN Administration Moderate Constipation Objective Remarks: GENERAL: Obese male patient, lying in bed. In no acute distress. SKIN: Warm and dry. HEAD: Normocephalic. EYES: No scleral icterus. No injection or drainage. NECK: Supple, trachea midline. CARDIOVASCULAR: +S/S2 without murmurs. RESPIRATORY: Anterior breath sounds distant, equal bilaterally. GASTROINTESTINAL: Abdomen large, soft, non-tender, nondistended. EXTREMITIES: No cyanosis, or edema. MUSCULOSKELETAL: Adequate muscle tone. NEUROLOGICAL: No obvious focal deficit. Awake, alert, and oriented x3. PSYCHIATRIC: Insight and judgment normal. Assessment/Plan - Plan This is a 57-year-old gentleman with metastatic breast cancer. He was first diagnosed with left breast cancer in 2012, he had a bilateral mastectomy. Pathology showed a 6.5 cm infiltrating ductal carcinoma, moderately differentiated with 2/8 lymph nodes positive for metastatic disease. Hormone receptor positive, HER-2 negative. Treated with dose-dense chemotherapy followed by chest wall radiation. Patient was on tamoxifen until he developed metastatic bone disease in 2016. PET scan showed hypermetabolic lesion thoracic spine, lumbar spine, left iliac wing and ribs. He also developed subcutaneous metastatic nodule. Biopsy of the left iliac bone lesion showed metastatic poorly differentiated carcinoma consistent with breast primary. This was hormone receptor +. He was treated with Xeloda October 2016 and had good response, recently he developed progression of bone disease and was started on Taxol. He had 2 infusions of Taxol before developing an allergic infusion reaction. He stopped the Taxol for about 2 weeks. He has recently received his first cycle of Abraxane. Patient was admitted to the hospital for intractable bone pain due to metastatic disease. Plan: 1. Plan for Abraxane today. 2. Patient scheduled for palliative radiation simulation tomorrow. 3. Continue supportive care. - Attending Statement The exam, history, and the medical decision-making described in the above note were completed with the assistance of the mid-level provider. I reviewed and agree with the findings presented. I attest that I had a [id number] encounter with the patient on the same day, and personally performed and documented my assessment and findings in the medical record. His pain is better controlled. He denies any abdominal pain. I have discussed the case with Dr. maria. Patient is going to have simulation tomorrow and possibly starting radiation next week. I am going to give him another cycle of Abraxane. Chemotherapy was ordered. Continue titrate pain medication.
--- NOTE | 2017-11-10 16:49 | P.PN ---
Subjective Interval history: patient feeling much better no complains except for no BM- - already on stool softenenrs - last time x 1 suppository worked- but does not want it now or tonight- oprefers to get it tomorrow before noon - i will order x1 around 11 if no BM Physical Exam Vital signs: Vital Signs 11/09/17 17:40 11/09/17 20:00 11/09/17 20:55 Temperature 98.2 F 97.5 F L Pulse Rate 67 68 74 Respiratory Rate 20 18 Blood Pressure 129/73 126/75 Pulse Oximetry 98 96 11/10/17 00:00 11/10/17 00:04 11/10/17 04:00 Temperature 98.1 F 97.9 F Pulse Rate 66 81 60 Respiratory Rate 18 18 Blood Pressure 123/73 122/73 Pulse Oximetry 99 95 11/10/17 04:05 11/10/17 08:00 11/10/17 11:52 Temperature 98.3 F Pulse Rate 69 62 69 Respiratory Rate 20 Blood Pressure 137/76 Pulse Oximetry 97 11/10/17 12:00 11/10/17 16:00 Temperature 98.2 F 99.0 F Pulse Rate 70 69 Respiratory Rate 18 20 Blood Pressure 130/66 146/73 H Pulse Oximetry 95 95 Intake & Output 11/09/17 11/10/17 11/10/17 18:59 06:59 18:59 Intake Total 3465 / 3465 2225 / 2225 2014 Output Total 3300 / 3300 2400 / 2400 2400 / 2400 Balance 165 / 165 -175 / -175 -385 / -385 Weight 128.4 kg 127.1 kg Intake: IV 1265 / 1265 1265 / 1265 1265 / 1265 NS Inj 1,000 ML @ 100 mls/hr IV 1000 / 1000 1000 / 1000 1000 / 1000 .CONT .Q10H [facility] Rx#:[id number] Vancomycin Inj 1,000 MG In NS 265 / 265 265 / 265 265 / 265 Inj 250 ML @ 250 mls/hr IV.SIG Q12H [facility] Rx#:[id number] Oral 2200 / 2200 960 / 960 750 / 750 Output: Urine 3300 / 3300 2400 / 2400 2400 / 2400 Other: Date of Last Bowel Movement 11/08/17 11/08/17 Narrative: awake and alert, oriented x 3, speech clear anicteric neck supple, lungs- no rales regular rhythm abdomen- flabby, soft, good bowel sounds extremities no edema moves all extremities spontaneously no calf swelling or tenderness Results - Labs CBC & Chem 7: 11/10/17 04:20 11/10/17 04:20 Laboratory Results - last 24 hr 11/09/17 11/09/17 11/10/17 17:25 21:31 04:20 WBC 4.1 RBC 3.14 L Hgb 9.9 L Hct 29.6 L MCV 94.3 MCH 31.6 MCHC 33.5 RDW 15.7 Plt Count 229 MPV 8.3 Neut % (Auto) 67.2 Lymph % (Auto) 21.9 [place] % (Auto) 2.9 Eos % (Auto) 6.8 H Baso % (Auto) 1.2 Neut # (Auto) 2.8 Lymph # (Auto) 0.9 L [place] # (Auto) 0.1 Eos # (Auto) 0.3 Baso # (Auto) 0.0 WBC Differential . Differential Comment Auto diff final Sodium Potassium Chloride Carbon Dioxide Anion Gap BUN Creatinine Estimated GFR POC Glucose 111 H 141 H Random Glucose Calcium Total Bilirubin AST ALT Alkaline Phosphatase Total Protein Albumin 11/10/17 11/10/17 04:20 08:27 WBC RBC Hgb Hct MCV MCH MCHC RDW Plt Count MPV Neut % (Auto) Lymph % (Auto) [place] % (Auto) Eos % (Auto) Baso % (Auto) Neut # (Auto) Lymph # (Auto) [place] # (Auto) Eos # (Auto) Baso # (Auto) WBC Differential Differential Comment Sodium 139 Potassium 4.0 Chloride 103 Carbon Dioxide 26.3 Anion Gap 10 BUN 16 Creatinine 1.19 Estimated GFR 63 L POC Glucose 107 Random Glucose 96 Calcium 8.7 Total Bilirubin 0.3 AST 37 ALT 24 Alkaline Phosphatase 86 Total Protein 6.2 L Albumin 2.7 L Microbiology 11/05/17 18:00 Blood - Other Aerobic Blood Culture - Final No growth in 5 days 11/05/17 18:00 Blood - Other Anaerobic Blood Culture - Final No growth in 5 days 11/05/17 18:00 Blood - Other Aerobic Blood Culture - Final No growth in 5 days 11/05/17 18:00 Blood - Other Anaerobic Blood Culture - Final No growth in 5 days Assessment and Plan - Plan This is a 49-year-old male with a history of metastatic breast cancer to the thoracic and lumbar spine, right pelvis and lymph nodes, hypertension and diabetes mellitus. He presents to the emergency room complaining of severe pain involving the right pelvis. No recent fall. Patient is on chronic narcotic on long-acting morphine 50 mg twice a day and Percocet 10 mg every 4-6 hours. Intractable pain with a history of metastatic breast cancer to the thoracic and lumbar spine, right pelvis and left nodes. - pain well controlled - Continue long-acting morphine sulfate 50 mg twice a day, Percocet 10 mg every 4 hours and IV morphine 4 mg every 4 hours for breakthrough pain. - Oncology, Palliative care ff - head CT negative Constipation= S/P Manual disimpaction- before - continue bowel regimen - relistor - give x 1 Dulocolax 10 mg supp before noon tomorrow if still no BM- ordered Hypertension. on hydrochlorothiazide and to monitor Diabetes mellitus. Continue metformin and monitor fingersticks and sliding scale coverage. DVT prophylaxis with subcu heparin. FEN -on Glcuerna- - dietitian ff Fever - T down- clinically feeling better- afebrile x 48 hours Neutropenia- WBC - improved recent chemotherapy- WBC low with ANC 1.6 ff cultures- negative x 5 days , UA negative ff CBC d/w Oncology-DETECTIVE PRECINCT started on 11/05 Vancomycin with neutropenia- ff WBC good x 2 days if continues to do well- and afebrile DC Vancomycin in am - would have received 7 days course Encourage out of bed Palliative care service ff
[2017-11-10] MEDS: Lidocaine 5% Patch T-DERMAL SCH (20:27)
[2017-11-11] MEDS: Sod Chloride 0.9% Inj 1,000 ML IV.CONT SCH ×2 (00:34→12:51)
[2017-11-11] MEDS: Vancomycin Inj 1,000 MG in Sodium Chlor 0.9% Inj 250 ML IV.SIG SCH (01:08)
[2017-11-11] MEDS: Insulin NovoLOG Aspart Correctional Sugar Inj SQ SCH ×3 (09:43→16:44)
[2017-11-11] MEDS: Ferrous Sulfate 325 MG Tablet PO SCH (09:48)
[2017-11-11] MEDS: hydroCHLOROthiazide 25 MG Tablet PO SCH (09:48)
[2017-11-11] MEDS: Senna/Docusate Sodium 8.6/50 MG Tablet PO SCH ×2 (09:48→21:46)
[2017-11-11] MEDS: Morphine Sulfate 30 MG SR Tablet PO SCH ×2 (09:49→21:44)
[2017-11-11] MEDS: Heparin - SQ 10,000 UNITS/ML Vial SQ SCH ×2 (09:51→21:45)
--- NOTE | 2017-11-11 10:53 | P.PN ---
Subjective Interval history: Follow-up for metastatic breast cancer, bone pain. Patient is currently doing well. He feels better today. He got up and had a bowel movement at the bedside commode. He is on room air. No fever or chills. Physical Exam Vital signs: Vital Signs 11/10/17 11:52 11/10/17 12:00 11/10/17 16:00 Temperature 98.2 F 99.0 F Pulse Rate 69 70 69 Respiratory Rate 18 20 Blood Pressure 130/66 146/73 H Pulse Oximetry 95 95 11/10/17 20:00 11/10/17 20:09 11/11/17 00:00 Temperature 97.6 F 98.1 F Pulse Rate 66 74 Respiratory Rate 18 18 18 Blood Pressure 111/69 119/69 Pulse Oximetry 97 95 11/11/17 00:05 11/11/17 04:00 11/11/17 04:45 Temperature 97.9 F Pulse Rate 82 63 71 Respiratory Rate 18 Blood Pressure 136/78 Pulse Oximetry 98 11/11/17 07:00 11/11/17 08:00 11/11/17 08:03 Temperature 98.3 F Pulse Rate 72 76 67 Respiratory Rate 16 Blood Pressure 149/85 H Pulse Oximetry 97 Intake & Output 11/10/17 11/11/17 11/11/17 18:59 06:59 18:59 Intake Total 2063.6 / 2063.6 1365 / 1365 Output Total 3700 / 3700 1800 / 1800 Balance -1636.4 / -1636.4 -435 / -435 Weight 127.1 kg 123.6 kg Intake: IV 1313.6 / 1313.6 1265 / 1265 NS Inj 1,000 ML @ 100 mls/hr IV 1000 / 1000 1000 / 1000 .CONT .Q10H [facility] Rx#:[id number] Abraxane Ine 243 MG In Bag/ 48.6 / 48.6 Syringe 1 EACH @ 97.2 mls/hr IV .SIG ONCE ONE Rx#:[id number] Vancomycin Inj 1,000 MG In NS 265 / 265 265 / 265 Inj 250 ML @ 250 mls/hr IV.SIG Q12H [facility] Rx#:[id number] Oral 750 / 750 100 / 100 Output: Urine 3700 / 3700 1800 / 1800 Other: Date of Last Bowel Movement 11/10/17 # Bowel Movements 2 Narrative: GENERAL: Alert, oriented 3, NAD. SKIN: Warm and dry. HEAD: Normocephalic. EYES: No scleral icterus. No injection or drainage. NECK: Supple, trachea midline. No JVD or lymphadenopathy. CARDIOVASCULAR: Regular rate and rhythm without murmurs, gallops, or rubs. RESPIRATORY: Breath sounds equal bilaterally. No accessory muscle use. GASTROINTESTINAL: Abdomen soft, non-tender, nondistended. MUSCULOSKELETAL: No cyanosis, or edema. BACK: Nontender without obvious deformity. No CVA tenderness. Results - Labs CBC & Chem 7: 11/10/17 04:20 11/10/17 04:20 Laboratory Results - last 24 hr 11/10/17 11/10/17 11/11/17 16:27 20:20 07:53 POC Glucose 159 H 116 H 85 Microbiology 11/05/17 18:00 Blood - Other Aerobic Blood Culture - Final No growth in 5 days 11/05/17 18:00 Blood - Other Anaerobic Blood Culture - Final No growth in 5 days 11/05/17 18:00 Blood - Other Aerobic Blood Culture - Final No growth in 5 days 11/05/17 18:00 Blood - Other Anaerobic Blood Culture - Final No growth in 5 days - Imaging Chest X-Ray 11/04/17 15:48 CONCLUSION: Persistent right perihilar soft tissue density which appears stable to slightly decreased in size as compared to the prior CT. No new parenchymal abnormality seen. Head CT 11/05/17 00:00 CONCLUSION: Negative CT Head with and without contrast. Knee X-Ray 11/05/17 00:00 CONCLUSION: Mild degenerative changes as described above. Lumbar Spine MRI 11/05/17 00:00 CONCLUSION: 1. Some evidence of increased metastatic disease to bone with new focus in L1 2. Severe canal stenosis related to dorsal bony retropulsion and disc protrusion at L3-4 which appears grossly unchanged Pelvis MRI 11/05/17 00:00 CONCLUSION: Findings of extensive osseous metastatic disease as above. Avascular necrosis versus metastatic disease left femoral head Shoulder X-Ray 11/05/17 00:00 CONCLUSION: 1. Destructive process in the distal aspect of the right clavicle with a mottled appearance along the lateral border of the scapula concerning for metastatic disease. These were present previously. 2. Slight expansile process in the lateral aspect of rib #7 on the right. Diagnostic considerations include an old healed rib fracture or additional metastatic deposit. This was present as well previously. 3. Proximal humerus remains intact. Assessment and Plan - Plan Mr. Sorenson is a pleasant 57-year-old male with a history of metastatic breast cancer hormone positive, HER-2 negative status post bilateral mastectomy, chemo and radiation. Patient was admitted to the hospital due to intractable bone pain due to metastatic disease. Metastatic breast cancer Intractable bone pain -Pain is due to metastatic breast cancer. -Metastasis to the thoracic and lumbar spine, right pelvis -Continue dexamethasone 4 mg daily -Continue lidocaine patch, morphine 30 mg p.o. twice daily as well as 4 mg IV every 3 hours as needed, oxycodone as needed Dyspnea -Currently asymptomatic, on room air. -Will add DuoNeb PRN. Neutropenia -Patient is currently afebrile. WBC 4.1 with Neutrophil count 2.8K -Will d/c Vancomycin. Hypertension -HCTZ 25mg Qday Diabetes mellitus -Currently on Metformin and sliding scale insulin. BG is well controlled. Full code. Heparin SQ.
--- NOTE | 2017-11-11 11:33 | P.PNONC ---
Subjective Interval history: Afebrile, patient lying in bed comfortably. He has no complaints at this time. He tolerated his chemotherapy well yesterday. He is scheduled for radiation simulation today at 1400. Objective Vital Signs/Intake & Output: Vital Signs 11/10/17 11:52 11/10/17 12:00 11/10/17 16:00 Temperature 98.2 F 99.0 F Pulse Rate 69 70 69 Respiratory Rate 18 20 Blood Pressure 130/66 146/73 H Pulse Oximetry 95 95 11/10/17 20:00 11/10/17 20:09 11/11/17 00:00 Temperature 97.6 F 98.1 F Pulse Rate 66 74 Respiratory Rate 18 18 18 Blood Pressure 111/69 119/69 Pulse Oximetry 97 95 11/11/17 00:05 11/11/17 04:00 11/11/17 04:45 Temperature 97.9 F Pulse Rate 82 63 71 Respiratory Rate 18 Blood Pressure 136/78 Pulse Oximetry 98 11/11/17 07:00 11/11/17 08:00 11/11/17 08:03 Temperature 98.3 F Pulse Rate 72 76 67 Respiratory Rate 16 Blood Pressure 149/85 H Pulse Oximetry 97 Intake & Output 11/10/17 11/11/17 11/11/17 18:59 06:59 18:59 Intake Total 2063.6 / 2063.6 1365 / 1365 Output Total 3700 / 3700 1800 / 1800 Balance -1636.4 / -1636.4 -435 / -435 Weight 127.1 kg 123.6 kg Intake: IV 1313.6 / 1313.6 1265 / 1265 NS Inj 1,000 ML @ 100 mls/hr IV 1000 / 1000 1000 / 1000 .CONT .Q10H [facility] Rx#:[id number] Abraxane Ine 243 MG In Bag/ 48.6 / 48.6 Syringe 1 EACH @ 97.2 mls/hr IV .SIG ONCE ONE Rx#:[id number] Vancomycin Inj 1,000 MG In NS 265 / 265 265 / 265 Inj 250 ML @ 250 mls/hr IV.SIG Q12H [facility] Rx#:[id number] Oral 750 / 750 100 / 100 Output: Urine 3700 / 3700 1800 / 1800 Other: Date of Last Bowel Movement 11/10/17 # Bowel Movements 2 Result Diagrams: 11/10/17 04:20 11/10/17 04:20 Laboratory Results: Laboratory Results - last 24 hr 11/10/17 11/10/17 11/11/17 16:27 20:20 07:53 POC Glucose 159 H 116 H 85 Culture Results: Microbiology 11/05/17 18:00 Aerobic Blood Culture - Final Blood - Other No growth in 5 days Anaerobic Blood Culture - Final No growth in 5 days 11/05/17 18:00 Aerobic Blood Culture - Final Blood - Other No growth in 5 days Anaerobic Blood Culture - Final No growth in 5 days 11/04/17 15:50 Aerobic Blood Culture - Final Blood - Peripheral No growth in 5 days Anaerobic Blood Culture - Final No growth in 5 days 11/04/17 15:55 Aerobic Blood Culture - Final Blood - Peripheral No growth in 5 days Anaerobic Blood Culture - Final No growth in 5 days Medications: Active Medications Generic Name Dose Route Start Last Admin Trade Name Freq PRN Reason Stop Dose Admin Acetaminophen 650 mg 11/04/17 18:29 11/05/17 17:06 Tylenol PO 650 mg Q4H PRN Administration Temp > 100.4 Bisacodyl 10 mg 11/04/17 18:29 11/06/17 22:42 Dulcolax Supp RECTAL 10 mg DAILY PRN Administration SEVERE CONSITIPATION Dexamethasone 4 mg 11/06/17 09:00 11/11/17 09:51 Decadron PO 4 mg DAILY [facility] Administration Ferrous Sulfate 325 mg 11/04/17 21:00 11/11/17 09:48 Ferosul PO 325 mg BID [facility] Administration Heparin Sodium (Porcine) 5,000 units 11/04/17 21:00 11/11/17 09:51 Heparin Inj SQ 5,000 units Q12HR [facility] Administration Hydrochlorothiazide 25 mg 11/05/17 09:00 11/11/17 09:48 Hydrodiuril PO 25 mg DAILY [facility] Administration Sodium Chloride 1,000 mls @ 100 mls/hr 11/04/17 18:30 11/11/17 00:34 Ns Inj IV.CONT Not Given .Q10H [facility] Insulin Aspart 0 unit 11/04/17 21:00 11/11/17 09:43 Novolog Insulin Correctional Sugar Inj SQ Not Given ACHS [facility] Protocol Lactulose 30 ml 11/09/17 10:32 11/11/17 09:52 Lactulose Liq PO 30 ml TID PRN Administration severe constipation Lidocaine HCl 2 patch 11/04/17 21:00 11/10/17 20:27 Lidoderm 5% Patch.12 Hr T-DERMAL 2 patch Q24H [facility] Administration Metformin HCl 500 mg 11/05/17 09:00 11/11/17 09:48 Glucophage PO 500 mg DAILY [facility] Administration Morphine Sulfate 4 mg 11/04/17 18:31 11/09/17 14:37 Morphine Inj IV.PUSH 4 mg Q3H PRN Administration BREAKTHROUGH PAIN Morphine Sulfate 30 mg 11/04/17 21:00 11/11/17 09:49 Oramorph Sr PO 30 mg BID [facility] Administration Ondansetron HCl 4 mg 11/04/17 18:29 11/08/17 15:49 Zofran Inj IV.PUSH 4 mg Q6H PRN Administration NAUSEA OR VOMITING Oxycodone HCl 5 mg 11/09/17 12:49 11/11/17 06:42 Roxicodone PO 5 mg Q4H PRN Administration PAIN SCALE 1-5 Pantoprazole Sodium 40 mg 11/06/17 09:00 11/11/17 09:48 Protonix PO 40 mg DAILY [facility] Administration Patch Removal 1 each 11/05/17 09:00 11/11/17 09:51 Remove Old Patch T-DERMAL 1 each DAILY [facility] Administration Senna/Docusate Sodium 2 tab 11/06/17 21:00 11/11/17 09:48 Mary-Colace PO 2 tab BID [facility] Administration Sennosides 17.2 mg 11/04/17 18:29 11/09/17 11:59 Senokot PO 17.2 mg Q12H PRN Administration Moderate Constipation Objective Remarks: GENERAL: Obese male patient, lying in bed. In no acute distress. SKIN: Warm and dry. HEAD: Normocephalic. EYES: No scleral icterus. No injection or drainage. NECK: Supple, trachea midline. CARDIOVASCULAR: +S/S2 without murmurs. RESPIRATORY: Anterior breath sounds clear, equal bilaterally. GASTROINTESTINAL: Abdomen large, soft, non-tender, nondistended. EXTREMITIES: No cyanosis, or edema. MUSCULOSKELETAL: Adequate muscle tone. NEUROLOGICAL: No obvious focal deficit. Awake, alert, and oriented x3. PSYCHIATRIC: Insight and judgment normal. Assessment/Plan - Plan This is a 57-year-old gentleman with metastatic breast cancer. He was first diagnosed with left breast cancer in 2012, he had a bilateral mastectomy. Pathology showed a 6.5 cm infiltrating ductal carcinoma, moderately differentiated with 2/8 lymph nodes positive for metastatic disease. Hormone receptor positive, HER-2 negative. Treated with dose-dense chemotherapy followed by chest wall radiation. Patient was on tamoxifen until he developed metastatic bone disease in 2016. PET scan showed hypermetabolic lesion thoracic spine, lumbar spine, left iliac wing and ribs. He also developed subcutaneous metastatic nodule. Biopsy of the left iliac bone lesion showed metastatic poorly differentiated carcinoma consistent with breast primary. This was hormone receptor +. He was treated with Xeloda October 2016 and had good response, recently he developed progression of bone disease and was started on Taxol. He had 2 infusions of Taxol before developing an allergic infusion reaction. He stopped the Taxol for about 2 weeks. He has recently received his first cycle of Abraxane. Patient was admitted to the hospital for intractable bone pain due to metastatic disease. Plan: 1. Status post Abraxane yesterday, patient tolerated well. 2. Patient scheduled for palliative radiation simulation today at 1400. 3. Continue supportive care. - Attending Statement The exam, history, and the medical decision-making described in the above note were completed with the assistance of the mid-level provider. I reviewed and agree with the findings presented. I attest that I had a [id number] encounter with the patient on the same day, and personally performed and documented my assessment and findings in the medical record. Patient tolerated Abraxane well yesterday. His pain is better. Hopefully he is responding to treatment. He had a good bowel movement yesterday. He has no abdominal pain. He is going to have radiation simulation today. Continue supportive care.
--- NOTE | 2017-11-11 12:28 | P.PNPAL ---
Reason for Visit Reason for visit: a. To assist with evaluation and management of symptoms including: pain; constipation; nausea b. To assist medical decision maker(s) with: better understanding of current medical conditions; weighing benefits/burdens of medical treatment options; making medical treatment decisions. Subjective Subjective/Interval History: Patient continues to improve. Pain is controlled to his satisfaction on the long acting morphine with breakthrough oxycodone. He was able to get out of bed and move to the bedside commode -- pain with weight-bearing was much better than it had been. Bowels are moving better and he reports having defecated well today. There has been no recent nausea/vomiting. Appetite is better. Dry mouth is improving. He reports his energy level is improving. No SOB. Patient has had his first dose of chemo and tolerated it well -- he says he had a little bit of achiness last night but was otherwise without symptoms. Patient is scheduled for radiation simulation today. Now that symptoms are better controlled , he is interested in moving more and having physical therapy. He is open to rehab following the acute hospitalization. . Family/Friend Interactions: No interaction with friends/family today. . Advance Directives Living Will: Never completed Health Care Surrogate: Copy in medical record (Primary: Ban Varma (fiance ) [phone]. Alternate: García Sorenson (nephew) [phone]) Durable Power of Gas Line Servicer: Never completed Advance Directives Date on File: 11/06/17 Health Care Surrogate Name and Number: Primary: Ban Varma [phone]. Alt García Sorenson [phone] Documented care wishes:: No writtten documentation of health care goals/preferences . Objective Vital Signs: Vital Signs 11/10/17 16:00 11/10/17 20:00 11/10/17 20:09 Temperature 99.0 F 97.6 F Pulse Rate 69 66 Respiratory Rate 20 18 18 Blood Pressure 146/73 H 111/69 Pulse Oximetry 95 97 11/11/17 00:00 11/11/17 00:05 11/11/17 04:00 Temperature 98.1 F Pulse Rate 74 82 63 Respiratory Rate 18 Blood Pressure 119/69 Pulse Oximetry 95 11/11/17 04:45 11/11/17 07:00 11/11/17 08:00 Temperature 97.9 F Pulse Rate 71 72 76 Respiratory Rate 18 Blood Pressure 136/78 Pulse Oximetry 98 11/11/17 08:03 Temperature 98.3 F Pulse Rate 67 Respiratory Rate 16 Blood Pressure 149/85 H Pulse Oximetry 97 Intake & Output 11/10/17 11/11/17 11/11/17 18:59 06:59 18:59 Intake Total 2063.6 / 2063.6 1365 / 1365 Output Total 3700 / 3700 1800 / 1800 Balance -1636.4 / -1636.4 -435 / -435 Weight 127.1 kg 123.6 kg Intake: IV 1313.6 / 1313.6 1265 / 1265 NS Inj 1,000 ML @ 100 mls/hr IV 1000 / 1000 1000 / 1000 .CONT .Q10H [facility] Rx#:[id number] Abraxane Ine 243 MG In Bag/ 48.6 / 48.6 Syringe 1 EACH @ 97.2 mls/hr IV .SIG ONCE ONE Rx#:[id number] Vancomycin Inj 1,000 MG In NS 265 / 265 265 / 265 Inj 250 ML @ 250 mls/hr IV.SIG Q12H [facility] Rx#:[id number] Oral 750 / 750 100 / 100 Output: Urine 3700 / 3700 1800 / 1800 Other: Date of Last Bowel Movement 11/10/17 # Bowel Movements 2 Physical Exam: CONSTITUTIONAL/GENERAL: This is morbidly obese male with multiple tattoos, pleasant , cooperative, conversant in an oncology floor medical bed. He appears comfortable at rest. Upbeat mood. TUBES/LINES/DRAINS: Right chest [id number]. SKIN: Multiple tattoos. No jaundice, rashes, or lesions.No wounds seen anteriorly. Skin temperature appropriate. Not diaphoretic. EYES: Pupils equal and round . Sclerae and conjunctivae clear. Fundi not examined. CARDIOVASCULAR: Regular rate and rhythm without murmurs. RESPIRATORY/CHEST: Symmetric, unlabored respirations. Clear to auscultation. Breath sounds equal bilaterally. No wheezes, rales, or rhonchi. GASTROINTESTINAL: Abdomen soft, obese, nondistended. No tenderness. Bowel sounds normal. GENITOURINARY: Without palpable bladder distension. MUSCULOSKELETAL: Extremities without clubbing, cyanosis, or edema. No mottling. NEUROLOGICAL: Awake and alert. Motor and sensory grossly within normal limits. Follows commands. Cognitively sharp. Moves all extremities. PSYCHIATRIC: No obvious anxiety/depression. No apparent hallucinations or other psychotic thought process. . Diagnostic Tests Laboratory: Laboratory Results - last 72 hr 11/08/17 11/09/17 11/09/17 20:47 03:50 03:50 WBC 4.7 D RBC 3.21 L Hgb 10.2 L Hct 29.9 L MCV 93.1 MCH 31.7 MCHC 34.0 RDW 15.7 Plt Count 209 MPV 8.5 Neut % (Auto) 78.7 H Lymph % (Auto) 18.2 [place] % (Auto) 1.6 Eos % (Auto) 0.9 Baso % (Auto) 0.6 Neut # (Auto) 3.7 Lymph # (Auto) 0.9 L [place] # (Auto) 0.1 Eos # (Auto) 0.0 Baso # (Auto) 0.0 WBC Differential . Differential Comment Auto diff final Sodium 143 Potassium 3.9 Chloride 108 H Carbon Dioxide 26.7 Anion Gap 8 BUN 11 Creatinine 1.14 Estimated GFR 66 L POC Glucose 142 H Random Glucose 105 Calcium 8.7 Total Bilirubin 0.4 AST 44 H ALT 23 Alkaline Phosphatase 94 Total Protein 6.4 Albumin 2.8 L 11/09/17 11/09/17 11/09/17 08:00 17:25 21:31 WBC RBC Hgb Hct MCV MCH MCHC RDW Plt Count MPV Neut % (Auto) Lymph % (Auto) [place] % (Auto) Eos % (Auto) Baso % (Auto) Neut # (Auto) Lymph # (Auto) [place] # (Auto) Eos # (Auto) Baso # (Auto) WBC Differential Differential Comment Sodium Potassium Chloride Carbon Dioxide Anion Gap BUN Creatinine Estimated GFR POC Glucose 112 H 111 H 141 H Random Glucose Calcium Total Bilirubin AST ALT Alkaline Phosphatase Total Protein Albumin 11/10/17 11/10/17 11/10/17 04:20 04:20 08:27 WBC 4.1 RBC 3.14 L Hgb 9.9 L Hct 29.6 L MCV 94.3 MCH 31.6 MCHC 33.5 RDW 15.7 Plt Count 229 MPV 8.3 Neut % (Auto) 67.2 Lymph % (Auto) 21.9 [place] % (Auto) 2.9 Eos % (Auto) 6.8 H Baso % (Auto) 1.2 Neut # (Auto) 2.8 Lymph # (Auto) 0.9 L [place] # (Auto) 0.1 Eos # (Auto) 0.3 Baso # (Auto) 0.0 WBC Differential . Differential Comment Auto diff final Sodium 139 Potassium 4.0 Chloride 103 Carbon Dioxide 26.3 Anion Gap 10 BUN 16 Creatinine 1.19 Estimated GFR 63 L POC Glucose 107 Random Glucose 96 Calcium 8.7 Total Bilirubin 0.3 AST 37 ALT 24 Alkaline Phosphatase 86 Total Protein 6.2 L Albumin 2.7 L 11/10/17 11/10/17 11/11/17 16:27 20:20 07:53 WBC RBC Hgb Hct MCV MCH MCHC RDW Plt Count MPV Neut % (Auto) Lymph % (Auto) [place] % (Auto) Eos % (Auto) Baso % (Auto) Neut # (Auto) Lymph # (Auto) [place] # (Auto) Eos # (Auto) Baso # (Auto) WBC Differential Differential Comment Sodium Potassium Chloride Carbon Dioxide Anion Gap BUN Creatinine Estimated GFR POC Glucose 159 H 116 H 85 Random Glucose Calcium Total Bilirubin AST ALT Alkaline Phosphatase Total Protein Albumin 11/11/17 11:53 WBC RBC Hgb Hct MCV MCH MCHC RDW Plt Count MPV Neut % (Auto) Lymph % (Auto) [place] % (Auto) Eos % (Auto) Baso % (Auto) Neut # (Auto) Lymph # (Auto) [place] # (Auto) Eos # (Auto) Baso # (Auto) WBC Differential Differential Comment Sodium Potassium Chloride Carbon Dioxide Anion Gap BUN Creatinine Estimated GFR POC Glucose 103 Random Glucose Calcium Total Bilirubin AST ALT Alkaline Phosphatase Total Protein Albumin Result Diagrams: 11/10/17 04:20 11/10/17 04:20 Microbiology: Microbiology 11/05/17 18:00 Aerobic Blood Culture - Final Blood - Other No growth in 5 days Anaerobic Blood Culture - Final No growth in 5 days 11/05/17 18:00 Aerobic Blood Culture - Final Blood - Other No growth in 5 days Anaerobic Blood Culture - Final No growth in 5 days 11/04/17 15:50 Aerobic Blood Culture - Final Blood - Peripheral No growth in 5 days Anaerobic Blood Culture - Final No growth in 5 days 11/04/17 15:55 Aerobic Blood Culture - Final Blood - Peripheral No growth in 5 days Anaerobic Blood Culture - Final No growth in 5 days Imaging: Chest X-Ray 11/04/17 15:48 CONCLUSION: Persistent right perihilar soft tissue density which appears stable to slightly decreased in size as compared to the prior CT. No new parenchymal abnormality seen. Head CT 11/05/17 00:00 CONCLUSION: Negative CT Head with and without contrast. Knee X-Ray 11/05/17 00:00 CONCLUSION: Mild degenerative changes as described above. Lumbar Spine MRI 11/05/17 00:00 CONCLUSION: 1. Some evidence of increased metastatic disease to bone with new focus in L1 2. Severe canal stenosis related to dorsal bony retropulsion and disc protrusion at L3-4 which appears grossly unchanged Pelvis MRI 11/05/17 00:00 CONCLUSION: Findings of extensive osseous metastatic disease as above. Avascular necrosis versus metastatic disease left femoral head Shoulder X-Ray 11/05/17 00:00 CONCLUSION: 1. Destructive process in the distal aspect of the right clavicle with a mottled appearance along the lateral border of the scapula concerning for metastatic disease. These were present previously. 2. Slight expansile process in the lateral aspect of rib #7 on the right. Diagnostic considerations include an old healed rib fracture or additional metastatic deposit. This was present as well previously. 3. Proximal humerus remains intact. Assessment and Plan - Disease Oriented Problem List (1) Bone metastases (2) Metastasis from breast cancer (3) Low grade fever Comment: Resolved (4) Diabetes mellitus - Symptom Scale (1) Constipation 0-10 Scale: Unable to quantify Comment: Improving . (2) Pain 0-10 Scale: Unable to quantify Comment: Improving. Pertinent Non-Medical Issues: Psychosocial: Born in [facility]. Moved to [place] in 1983. 10th grade education. No service. 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 Has a long term care pharmacist "fiancee" but says he will not be able to for financial reasons. No children. Both parents . Has a sister. Close to a nephew - - Brain Delta. Patient lives with his fiancee, her mother, and his uncle. Spiritual: Scientologist and spirituality have not played an important role in his life. Legal: Health care surrogate completed 11/06/2017. Ethical issues impacting care: Patient is capacitated to make his own health care decisions at this time. . Important Contacts: * Ban Varma, primary HCS/significant other: [phone] * Hilton Sorenson, alternate HCS/nephew: [phone] Prognosis: Patient has been battling metastatic breast since 2012. Disease is progressing. He is losing weight. Pain had been growing worse. Pain was keeping him mostly chair bound. Symptoms have improved since hospitalization. Pain/constipation are better and he is able to move more. He has re-started chemo and is to begin radiation. If he has a good response to chemo and radiation he may get some more quality of life. Given the extent of his illness, at such time that patient no longer wants to pursue aggressive cancer directed therapies, he would be eligible for hospice care. . Code Status: Full Code Plan: == Code Status: FULL CODE. Patient wants resuscitation to be attempted and wants a "time limited trial of aggressive care." Should he end up on life support, he does not want to be maintained there if the doctors feel there is little chance of him returning to a life with quality. == Decision making: patient is currently capacitated to make his own health care decisions. Health care surrogate completed (11/06/17). Primary HCS: Ban Varma (fiance); Alternate HCS: García Delta (nephew) == Goals of medical treatment: Patient wants his pain and constipation controlled. He wants to pursue any additional cancer directed treatments that might help to slow the progress of his disease. == Symptoms: * Pain: Most of patient's pain appears to be "bone" pain from metastatic disease and it is primarily located in metastatic areas. There is also a neuropathic component on the right where pain radiates down from the right hip toward the right knee and is associated with numbness. Pain is exacerbated by constipation and the constipation creates its own type of pain. He seems to have been helped by low dose dexamethasone -- pain is now controlled better on less opioids. * Constipation: This has been severe and is certainly exacerbated by opioids. He is improving with the current bowel protocol and possibly from being able to reduce opioid usage while on dexamethasone. * Nausea/vomiting -- much improved. * Dry mouth -- improving. == PLAN * Will continue with current pain regimen as it appears to be working. Should this fail or pain grow worse, recommend changing long acting opioid from morphine to methadone at 7.5 mg po q 8 hours ATC. There is anecdotal evidence that methadone is less constipating and may be more helpful for the neuropathic component of the pain. * Recommend stopping the ferrous sulfate if oncology/hematology agrees --Hgb is 11.0 and the iron may be exacerbating gut discomfort. * Advance physical therapy as tolerated. == Disposition: As patient has essentially been chair-bound for months, he would probably benefit from some physical therapy to become ambulatory again once pain is controlled. This should probably continue post discharge. == Patient has indicated that he would like more information on life expectancy so he can plan better, would appreciate oncology guidance. == Palliative care will continue to follow to assist with symptom management and to further clarify goals of medical treatment as the clinical course evolves. . Attestation Attestation: To help prompt me to consider important information that might be impacting today's encounter and assessment, information from prior notes written by myself or my colleagues may have been "brought forward" into today's note. My signature on this note, however, is an attestation that I personally performed the exam, history, and/or decision-making noted today, and, unless otherwise indicated, the interactions with patient, family, and staff as well as the review of records all occurred today. I also attest that the listed assessment and stated plan reflect my best clinical judgment today based on the combination of historical information, prior notes, and today's exam/ interactions. When time spent is documented, it refers only to time spent today by the signer, or if indicated, combined time spent today by collaborating physician/nurse practitioner. .
[2017-11-11] MEDS: Lidocaine 5% Patch T-DERMAL SCH (21:44)
[2017-11-12] MEDS: Insulin NovoLOG Aspart Correctional Sugar Inj SQ SCH ×5 (07:31→20:57)
[2017-11-12] MEDS: Morphine Sulfate 30 MG SR Tablet PO SCH ×2 (09:05→20:52)
[2017-11-12] MEDS: Heparin - SQ 10,000 UNITS/ML Vial SQ SCH ×2 (09:05→20:53)
[2017-11-12] MEDS: Senna/Docusate Sodium 8.6/50 MG Tablet PO SCH ×2 (09:06→20:52)
[2017-11-12] MEDS: hydroCHLOROthiazide 25 MG Tablet PO SCH (09:06)
--- NOTE | 2017-11-12 10:05 | P.PNONC ---
Subjective Interval history: Afebrile. Patient lying in bed, with no complaints at this time. He states he just had a bowel movement, he was able to get out of bed and use the bedside commode. Attempted radiation simulation yesterday, however patient was unable to participate for multiple reasons. He is agreeable to retry if there is availability today. He also states that he would like to go to a rehab soon. Pain is currently controlled. Objective Vital Signs/Intake & Output: Vital Signs 11/11/17 11:00 11/11/17 12:00 11/11/17 15:00 Temperature 98.4 F Pulse Rate 72 72 74 Respiratory Rate 16 Blood Pressure 148/75 H Pulse Oximetry 95 11/11/17 16:00 11/11/17 20:00 11/12/17 04:00 Temperature 98.5 F 98.2 F 97.6 F Pulse Rate 82 80 79 Respiratory Rate 18 20 18 Blood Pressure 140/72 127/80 121/79 Pulse Oximetry 96 99 97 Intake & Output 11/11/17 11/12/17 11/12/17 18:59 06:59 18:59 Intake Total 3859 / 3859 720 / 720 Output Total 1790 / 1790 3300 / 3300 Balance 2069 / 2069 -2580 / -2580 Weight 123.4 kg Intake: IV 1999 NS Inj 1,000 ML @ 100 mls/hr IV 1999 .CONT .Q10H [facility] Rx#:[id number] Oral 1859 / 1859 720 / 720 Output: Urine 1790 / 1790 3300 / 3300 Other: # Bowel Movements 2 Result Diagrams: 11/10/17 04:20 11/10/17 04:20 Laboratory Results: Laboratory Results - last 24 hr 11/11/17 11/11/17 11/11/17 11:53 16:44 22:12 POC Glucose 103 132 H 151 H 11/12/17 09:03 POC Glucose 106 Culture Results: Microbiology 11/05/17 18:00 Aerobic Blood Culture - Final Blood - Other No growth in 5 days Anaerobic Blood Culture - Final No growth in 5 days 11/05/17 18:00 Aerobic Blood Culture - Final Blood - Other No growth in 5 days Anaerobic Blood Culture - Final No growth in 5 days 11/04/17 15:50 Aerobic Blood Culture - Final Blood - Peripheral No growth in 5 days Anaerobic Blood Culture - Final No growth in 5 days 11/04/17 15:55 Aerobic Blood Culture - Final Blood - Peripheral No growth in 5 days Anaerobic Blood Culture - Final No growth in 5 days Medications: Active Medications Generic Name Dose Route Start Last Admin Trade Name Freq PRN Reason Stop Dose Admin Acetaminophen 650 mg 11/04/17 18:29 11/05/17 17:06 Tylenol PO 650 mg Q4H PRN Administration Temp > 100.4 Bisacodyl 10 mg 11/04/17 18:29 11/06/17 22:42 Dulcolax Supp RECTAL 10 mg DAILY PRN Administration SEVERE CONSITIPATION Dexamethasone 4 mg 11/06/17 09:00 11/12/17 09:06 Decadron PO 4 mg DAILY [facility] Administration Heparin Sodium (Porcine) 5,000 units 11/04/17 21:00 11/12/17 09:05 Heparin Inj SQ 5,000 units Q12HR [facility] Administration Hydrochlorothiazide 25 mg 11/05/17 09:00 11/12/17 09:06 Hydrodiuril PO 25 mg DAILY [facility] Administration Insulin Aspart 0 unit 11/04/17 21:00 11/12/17 09:15 Novolog Insulin Correctional Sugar Inj SQ Not Given ACHS [facility] Protocol Lactulose 30 ml 11/09/17 10:32 11/11/17 21:44 Lactulose Liq PO 30 ml TID PRN Administration severe constipation Lidocaine HCl 2 patch 11/04/17 21:00 11/11/17 21:44 Lidoderm 5% Patch.12 Hr T-DERMAL 2 patch Q24H [facility] Administration Metformin HCl 500 mg 11/05/17 09:00 11/12/17 09:06 Glucophage PO 500 mg DAILY [facility] Administration Morphine Sulfate 4 mg 11/04/17 18:31 11/09/17 14:37 Morphine Inj IV.PUSH 4 mg Q3H PRN Administration BREAKTHROUGH PAIN Morphine Sulfate 30 mg 11/04/17 21:00 11/12/17 09:05 Oramorph Sr PO 30 mg BID [facility] Administration Ondansetron HCl 4 mg 11/04/17 18:29 11/08/17 15:49 Zofran Inj IV.PUSH 4 mg Q6H PRN Administration NAUSEA OR VOMITING Oxycodone HCl 5 mg 11/09/17 12:49 11/11/17 12:48 Roxicodone PO 5 mg Q4H PRN Administration PAIN SCALE 1-5 Pantoprazole Sodium 40 mg 11/06/17 09:00 11/12/17 09:06 Protonix PO 40 mg DAILY [facility] Administration Patch Removal 1 each 11/05/17 09:00 11/12/17 09:09 Remove Old Patch T-DERMAL 1 each DAILY [facility] Administration Senna/Docusate Sodium 2 tab 11/06/17 21:00 11/12/17 09:06 Mary-Colace PO 2 tab BID [facility] Administration Sennosides 17.2 mg 11/04/17 18:29 11/09/17 11:59 Senokot PO 17.2 mg Q12H PRN Administration Moderate Constipation Objective Remarks: GENERAL: Obese male patient, lying in bed. In no acute distress. SKIN: Warm and dry. HEAD: Normocephalic. EYES: No scleral icterus. No injection or drainage. NECK: Supple, trachea midline. CARDIOVASCULAR: +S/S2 without murmurs. RESPIRATORY: Anterior breath sounds clear, equal bilaterally. Nonlabored. GASTROINTESTINAL: Abdomen large, soft, non-tender, nondistended. EXTREMITIES: No cyanosis, or edema. MUSCULOSKELETAL: Adequate muscle tone. NEUROLOGICAL: No obvious focal deficit. Awake, alert, and oriented x3. PSYCHIATRIC: Insight and judgment normal. Assessment/Plan - Plan This is a 57-year-old gentleman with metastatic breast cancer. He was first diagnosed with left breast cancer in 2012, he had a bilateral mastectomy. Pathology showed a 6.5 cm infiltrating ductal carcinoma, moderately differentiated with 2/8 lymph nodes positive for metastatic disease. Hormone receptor positive, HER-2 negative. Treated with dose-dense chemotherapy followed by chest wall radiation. Patient was on tamoxifen until he developed metastatic bone disease in 2016. PET scan showed hypermetabolic lesion thoracic spine, lumbar spine, left iliac wing and ribs. He also developed subcutaneous metastatic nodule. Biopsy of the left iliac bone lesion showed metastatic poorly differentiated carcinoma consistent with breast primary. This was hormone receptor +. He was treated with Xeloda October 2016 and had good response, recently he developed progression of bone disease and was started on Taxol. He had 2 infusions of Taxol before developing an allergic infusion reaction. He stopped the Taxol for about 2 weeks. He has recently received his first cycle of Abraxane. Patient was admitted to the hospital for intractable bone pain due to metastatic disease. Plan: 1. Status post Abraxane on 11/10/2017, patient tolerated well. 2. Patient unable to participate in radiation simulation yesterday. He is agreeable to try again when available. 3. Spoke with case management in regards to patient going to a rehab facility. Patient needs PT/OT evaluation. 4. Continue supportive care. - Attending Statement The exam, history, and the medical decision-making described in the above note were completed with the assistance of the mid-level provider. I reviewed and agree with the findings presented. I attest that I had a [id number] encounter with the patient on the same day, and personally performed and documented my assessment and findings in the medical record. Patient did not have the simulation yesterday. He is going to retry today. His pain overall has improved. He also had good bowel movement. Continue supportive care. Can be discharged once his pain is controlled.
--- NOTE | 2017-11-12 11:23 | P.PN ---
Subjective Interval history: Follow-up for metastatic breast cancer, bone pain. Doing well. No fever, chills. Rad onc simulation today at around 2PM. Physical Exam Vital signs: Vital Signs 11/11/17 12:00 11/11/17 15:00 11/11/17 16:00 Temperature 98.4 F 98.5 F Pulse Rate 72 74 82 Respiratory Rate 16 18 Blood Pressure 148/75 H 140/72 Pulse Oximetry 95 96 11/11/17 20:00 11/12/17 04:00 Temperature 98.2 F 97.6 F Pulse Rate 80 79 Respiratory Rate 20 18 Blood Pressure 127/80 121/79 Pulse Oximetry 99 97 Intake & Output 11/11/17 11/12/17 11/12/17 18:59 06:59 18:59 Intake Total 3859 / 3859 720 / 720 Output Total 1790 / 1790 3300 / 3300 Balance 2068 / 2068 -2580 / -2580 Weight 123.4 kg Intake: IV 1999 NS Inj 1,000 ML @ 100 mls/hr IV 1999 .CONT .Q10H [facility] Rx#:[id number] Oral 1859 / 1859 720 / 720 Output: Urine 1790 / 1790 3300 / 3300 Other: # Bowel Movements 2 Narrative: GENERAL: Alert, oriented 3, NAD. SKIN: Warm and dry. HEAD: Normocephalic. EYES: No scleral icterus. No injection or drainage. NECK: Supple, trachea midline. No JVD or lymphadenopathy. CARDIOVASCULAR: Regular rate and rhythm without murmurs, gallops, or rubs. RESPIRATORY: Breath sounds equal bilaterally. No accessory muscle use. GASTROINTESTINAL: Abdomen soft, non-tender, nondistended. MUSCULOSKELETAL: No cyanosis, or edema. BACK: Nontender without obvious deformity. No CVA tenderness. Results - Labs CBC & Chem 7: 11/10/17 04:20 11/10/17 04:20 Laboratory Results - last 24 hr 11/11/17 11/11/17 11/11/17 11:53 16:44 22:12 POC Glucose 103 132 H 151 H 11/12/17 09:03 POC Glucose 106 Assessment and Plan - Plan Mr. Sorenson is a pleasant 57-year-old male with a history of metastatic breast cancer hormone positive, HER-2 negative status post bilateral mastectomy, chemo and radiation. Patient was admitted to the hospital due to intractable bone pain due to metastatic disease. Metastatic breast cancer Intractable bone pain -Pain is due to metastatic breast cancer. -Metastasis to the thoracic and lumbar spine, right pelvis -Continue dexamethasone 4 mg daily -Continue lidocaine patch, morphine 30 mg p.o. twice daily as well as 4 mg IV every 3 hours as needed, oxycodone as needed -Radiation oncology simulation today at 2PM. -Encouraged patient to participate with PT. Dyspnea -Currently asymptomatic, on room air. -DuoNeb PRN. Neutropenia -Patient is currently afebrile. WBC 4.1 with Neutrophil count 2.8K Hypertension -HCTZ 25mg Qday Diabetes mellitus -Currently on Metformin and sliding scale insulin. BG is well controlled. Discussed with CM - will refer patient to [facility]. Full code. Heparin SQ.
--- NOTE | 2017-11-12 12:56 | P.DIET ---
Nutritional Evaluation Type of nutrition evaluation: follow-up Nutrition consult regarding: Diet Evaluation ([facility] [place] for Supplement to Oral Intake) Objective - Diagnosis Intractable Pain, Metastatic Breast Cancer to Bone - Objective % IBW: 158 (CTA=862#) Body Weight Used for Calculations: Upper end of IBW (86kg) Energy Needs - Lower Range (kCal/kg): 28 Energy Needs - Upper Range (kCal/kg): 32 Lower Limit kCal/kg (kCals): 2,408 Upper Limit kCal/kg (kCals): 2,752 Lower Limit Protein Factor (Grams per Kg): 1.2 Upper Limit Protein Factor (Grams per Kg): 1.5 Lower Protein Needs (Protein): 103 Upper Protein Needs (Protein): 129 Fluid Factor (ml/kg): 30 Estimated Fluid Needs (ml): 2,580 Dietitian Reviewed in Medical Record: Current diet, Curent medications, Intake & Output, Labs Diet Order: Heart Healthy, 2000ADA Oral Diet Intake Amount: Fair 50-75% Objective Comments: L metastatic breast cancer-> 1st dose Abraxane on 11/03 Feeding - Current PO Supplement Current Supplement: Glucerna Shake Current Frequency of Supplement: Three times a day Current kCals Provided by Supplement: 220 Current Protein Provided by Supplement: 10 Assessment Assessment: Pt remains on a 2000ADA diet. He was eating pretty well, but then received chemo on 11/10 and his intake has decreased slightly. Getting Glucerna Shakes TID , continue these. Recommend increasing diet to a 2500ADA to better meet his increased nutritional requirements. Dietitian following. Recommendations: 1. Recommend 2500ADA diet to better meet his increased nutritional requirements. 2. Continue Glucerna Shakes TID. Dietitian to Monitor: Lab values, Supplement acceptance, Intake & Output, Diet tolerance, Weight change, PO Intake, Medical course
[2017-11-12] MEDS: Lidocaine 5% Patch T-DERMAL SCH (20:53)
--- NOTE | 2017-11-13 07:36 | P.PNONC ---
Subjective Interval history: Patient did not have his simulation yesterday. His pain overall is better controlled. He was able to get up to go to the bathroom a few times. [facility] He wants to go home and do his own physical therapy. He has no chest pain or palpitation. He has no shortness of breath or cough. He denies any nausea vomiting. Objective Vital Signs/Intake & Output: Vital Signs 11/12/17 08:00 11/12/17 16:00 11/12/17 20:00 Temperature 97.2 F L 98.8 F 98.4 F Pulse Rate 83 82 77 Respiratory Rate 18 18 20 Blood Pressure 128/69 113/75 116/68 Pulse Oximetry 96 95 98 11/12/17 21:22 11/13/17 00:51 11/13/17 04:25 Temperature 97.7 F 97.9 F Pulse Rate 76 83 Respiratory Rate 18 18 17 Blood Pressure 121/70 138/75 Pulse Oximetry 97 97 Intake & Output 11/12/17 11/13/17 11/13/17 18:59 06:59 18:59 Intake Total 1080 / 1080 240 / 240 Output Total 900 / 900 1350 / 1350 Balance 180 / 180 -1110 / -1110 Weight 118.7 kg Intake: Oral 1080 / 1080 240 / 240 Output: Urine 900 / 900 1350 / 1350 Other: # Voids 1 3 Date of Last Bowel Movement 11/12/17 # Bowel Movements 2 2 Result Diagrams: 11/10/17 04:20 11/10/17 04:20 Laboratory Results: Laboratory Results - last 24 hr 11/12/17 11/12/17 11/12/17 09:03 12:06 17:40 POC Glucose 106 107 109 11/12/17 20:56 POC Glucose 114 H Culture Results: Microbiology 11/05/17 18:00 Aerobic Blood Culture - Final Blood - Other No growth in 5 days Anaerobic Blood Culture - Final No growth in 5 days 11/05/17 18:00 Aerobic Blood Culture - Final Blood - Other No growth in 5 days Anaerobic Blood Culture - Final No growth in 5 days Medications: Active Medications Generic Name Dose Route Start Last Admin Trade Name Freq PRN Reason Stop Dose Admin Acetaminophen 650 mg 11/04/17 18:29 11/05/17 17:06 Tylenol PO 650 mg Q4H PRN Administration Temp > 100.4 Bisacodyl 10 mg 11/04/17 18:29 11/06/17 22:42 Dulcolax Supp RECTAL 10 mg DAILY PRN Administration SEVERE CONSITIPATION Dexamethasone 4 mg 11/06/17 09:00 11/12/17 09:06 Decadron PO 4 mg DAILY [facility] Administration Heparin Sodium (Porcine) 5,000 units 11/04/17 21:00 11/12/17 20:53 Heparin Inj SQ 5,000 units Q12HR [facility] Administration Hydrochlorothiazide 25 mg 11/05/17 09:00 11/12/17 09:06 Hydrodiuril PO 25 mg DAILY [facility] Administration Insulin Aspart 0 unit 11/04/17 21:00 11/12/17 20:57 Novolog Insulin Correctional Sugar Inj SQ Not Given ACHS [facility] Protocol Lactulose 30 ml 11/09/17 10:32 11/12/17 20:53 Lactulose Liq PO 30 ml TID PRN Administration severe constipation Lidocaine HCl 2 patch 11/04/17 21:00 11/12/17 20:53 Lidoderm 5% Patch.12 Hr T-DERMAL 2 patch Q24H [facility] Administration Metformin HCl 500 mg 11/05/17 09:00 11/12/17 09:06 Glucophage PO 500 mg DAILY [facility] Administration Morphine Sulfate 4 mg 11/04/17 18:31 11/09/17 14:37 Morphine Inj IV.PUSH 4 mg Q3H PRN Administration BREAKTHROUGH PAIN Morphine Sulfate 30 mg 11/04/17 21:00 11/12/17 20:52 Oramorph Sr PO 30 mg BID [facility] Administration Ondansetron HCl 4 mg 11/04/17 18:29 11/08/17 15:49 Zofran Inj IV.PUSH 4 mg Q6H PRN Administration NAUSEA OR VOMITING Oxycodone HCl 5 mg 11/09/17 12:49 11/11/17 12:48 Roxicodone PO 5 mg Q4H PRN Administration PAIN SCALE 1-5 Pantoprazole Sodium 40 mg 11/06/17 09:00 11/12/17 09:06 Protonix PO 40 mg DAILY [facility] Administration Patch Removal 1 each 11/05/17 09:00 11/12/17 09:09 Remove Old Patch T-DERMAL 1 each DAILY [facility] Administration Senna/Docusate Sodium 2 tab 11/06/17 21:00 11/12/17 20:52 Mary-Colace PO 2 tab BID [facility] Administration Sennosides 17.2 mg 11/04/17 18:29 11/09/17 11:59 Senokot PO 17.2 mg Q12H PRN Administration Moderate Constipation Objective Remarks: GENERAL: Well-nourished, well-developed patient. Morbidly obese SKIN: Warm and dry. Multiple tattoos HEAD: Normocephalic. EYES: No scleral icterus. No injection or drainage. NECK: Supple, trachea midline. No JVD or lymphadenopathy. LYMPHATIC: No adenopathy. CARDIOVASCULAR: Regular rate and rhythm without murmurs. RESPIRATORY: Breath sounds equal bilaterally. No accessory muscle use. GASTROINTESTINAL: Abdomen soft, non-tender, nondistended. EXTREMITIES: No cyanosis, or edema. MUSCULOSKELETAL: Adequate muscle tone. NEUROLOGICAL: No obvious focal deficit. Awake, alert, and oriented x3. PSYCHIATRIC: Appropriate mood and affect; insight and judgment normal. Assessment/Plan (1) Bone metastases Code(s): C79.51 - Secondary malignant neoplasm of bone Status: Acute (2) Constipation Code(s): K59.00 - Constipation, unspecified Status: Acute - Plan This is a 57-year-old gentleman with metastatic breast cancer. He was first diagnosed with left breast cancer in 2012, he had a bilateral mastectomy. Pathology showed a 6.5 cm infiltrating ductal carcinoma, moderately differentiated with 2/8 lymph nodes positive for metastatic disease. Hormone receptor positive, HER-2 negative. Treated with dose-dense chemotherapy followed by chest wall radiation. Patient was on tamoxifen until he developed metastatic bone disease in 2016. PET scan showed hypermetabolic lesion thoracic spine, lumbar spine, left iliac wing and ribs. He also developed subcutaneous metastatic nodule. Biopsy of the left iliac bone lesion showed metastatic poorly differentiated carcinoma consistent with breast primary. This was hormone receptor +. He was treated with Xeloda October 2016 and had good response, recently he developed progression of bone disease and was started on Taxol. He had 2 infusions of Taxol before developing an allergic infusion reaction. He stopped the Taxol for about 2 weeks. He has recently received his first cycle of Abraxane. Patient was admitted to the hospital for intractable bone pain due to metastatic disease. Plan: 1. Status post Abraxane on 11/10/2017, patient tolerated well. Next dose is November 17, 2017. 2. Patient did not have radiation simulation yesterday but is scheduled to go to radiation oncology today. 3. Patient did not want to go to rehab. Consider discharge home with home physical therapy once his pain is controlled and he is able to ambulate. 4. Continue supportive care. 5. Continue long-acting opiate 30 mg twice a day and Roxicodone for breakthrough pain.
[2017-11-13] MEDS: Insulin NovoLOG Aspart Correctional Sugar Inj SQ SCH ×4 (09:11→20:54)
[2017-11-13] MEDS: Heparin - SQ 10,000 UNITS/ML Vial SQ SCH ×2 (09:12→20:47)
[2017-11-13] MEDS: Morphine Sulfate 30 MG SR Tablet PO SCH ×2 (09:12→20:46)
[2017-11-13] MEDS: hydroCHLOROthiazide 25 MG Tablet PO SCH (09:13)
[2017-11-13] MEDS: Senna/Docusate Sodium 8.6/50 MG Tablet PO SCH ×2 (09:13→20:46)
--- NOTE | 2017-11-13 09:28 | P.PN ---
Subjective Interval history: Follow-up for metastatic breast cancer, bone pain. Patient is doing well. He would like to participate in PT today. No fever, chills. Rad onc simulation today. Physical Exam Vital signs: Vital Signs 11/12/17 16:00 11/12/17 20:00 11/12/17 21:22 Temperature 98.8 F 98.4 F Pulse Rate 82 77 Respiratory Rate 18 20 18 Blood Pressure 113/75 116/68 Pulse Oximetry 95 98 11/13/17 00:51 11/13/17 04:25 11/13/17 09:18 Temperature 97.7 F 97.9 F 97.0 F L Pulse Rate 76 83 87 Respiratory Rate 18 17 20 Blood Pressure 121/70 138/75 128/77 Pulse Oximetry 97 97 96 Intake & Output 11/12/17 11/13/17 11/13/17 18:59 06:59 18:59 Intake Total 1080 / 1080 240 / 240 Output Total 900 / 900 1350 / 1350 Balance 180 / 180 -1110 / -1110 Weight 118.7 kg Intake: Oral 1080 / 1080 240 / 240 Output: Urine 900 / 900 1350 / 1350 Other: # Voids 1 3 Date of Last Bowel Movement 11/12/17 # Bowel Movements 2 2 Results - Labs CBC & Chem 7: 11/10/17 04:20 11/10/17 04:20 Laboratory Results - last 24 hr 11/12/17 11/12/17 11/12/17 12:06 17:40 20:56 POC Glucose 107 109 114 H 11/13/17 08:22 POC Glucose 96 Assessment and Plan - Plan Mr. Sorenson is a pleasant 57-year-old male with a history of metastatic breast cancer hormone positive, HER-2 negative status post bilateral mastectomy, chemo and radiation. Patient was admitted to the hospital due to intractable bone pain due to metastatic disease. Metastatic breast cancer Intractable bone pain -Pain is due to metastatic breast cancer. -Metastasis to the thoracic and lumbar spine, right pelvis -Continue dexamethasone 4 mg daily -Continue lidocaine patch, morphine 30 mg p.o. twice daily as well as 4 mg IV every 3 hours as needed, oxycodone as needed -Radiation oncology simulation hopefully today. -Encouraged patient to participate with PT. Dyspnea -Currently asymptomatic, on room air. -DuoNeb PRN. Neutropenia -Patient is currently afebrile. WBC 4.1 with Neutrophil count 2.8K Hypertension -HCTZ 25mg Qday Diabetes mellitus -Currently on Metformin and sliding scale insulin. BG is well controlled. Discharge plan: Hopefully SNF/[facility] or perhaps home with home health. Full code. Heparin SQ.
--- NOTE | 2017-11-13 15:00 | P.PNPAL ---
Reason for Visit Reason for visit: a. To assist with evaluation and management of symptoms including: pain; constipation; nausea; wheezing b. To assist medical decision maker(s) with: better understanding of current medical conditions; weighing benefits/burdens of medical treatment options; making medical treatment decisions. Subjective Subjective/Interval History: Patient continues to be satisfied with pain control and remains on his sustained release morphine 30 mg twice daily and immediate release oxycodone 5 mg po q 4 hours prn. Energy level continues to improve. Denies nausea/ vomiting. Appetite improving. He is concerned because he was told that the scheduled senna was discontinued. He was so very painful from his constipation and disimpaction and he much prefers to have fequent bowel movements to prevent the obstipation from recurring. He asks me to make sure there is scheduled senna twice daily and scheduled lactulose q evening. Patient has been up more and bearing weight with less pain. He does get SOB with exertion. He tells me he has had some wheezing with deep breathing and exertion for months. He has an order for PRN albuterol nebs, but it has not been given. No significant adverse reactions to his Abraxane treatment of 11/10/17. Next dose scheduled for 11/17/17 Patient was supposed to undergo radiation therapy simulation , but this did not take place . He is unsure if this is to take place today. Patient has been evaluated by [facility] for rehab. He was initially planning to go home and do his own PT at home. He is now agreeing to an inpatient rehab program. . Family/Friend Interactions: No family/friends at bedside. . Advance Directives Living Will: Never completed Health Care Surrogate: Copy in medical record (Primary: Ban Varma (finoble ) [phone]. Alternate: García Sorenson (nephew) [phone]) Durable Power of [employer] Engineer: Never completed Advance Directives Date on File: 11/06/17 Health Care Surrogate Name and Number: Primary: Ban Varma [phone]. Alt García Sorenson [phone] Documented care wishes:: No writtten documentation of health care goals/preferences . Objective Vital Signs: Vital Signs 11/12/17 16:00 11/12/17 20:00 11/12/17 21:22 Temperature 98.8 F 98.4 F Pulse Rate 82 77 Respiratory Rate 18 20 18 Blood Pressure 113/75 116/68 Pulse Oximetry 95 98 11/13/17 00:51 11/13/17 04:25 11/13/17 09:18 Temperature 97.7 F 97.9 F 97.0 F L Pulse Rate 76 83 87 Respiratory Rate 18 17 20 Blood Pressure 121/70 138/75 128/77 Pulse Oximetry 97 97 96 Intake & Output 11/12/17 11/13/17 11/13/17 18:59 06:59 18:59 Intake Total 1080 / 1080 240 / 240 Output Total 900 / 900 1350 / 1350 Balance 180 / 180 -1110 / -1110 Weight 118.7 kg Intake: Oral 1080 / 1080 240 / 240 Output: Urine 900 / 900 1350 / 1350 Other: # Voids 1 3 Date of Last Bowel Movement 11/12/17 # Bowel Movements 2 2 Physical Exam: CONSTITUTIONAL/GENERAL: This is morbidly obese male with multiple tattoos, pleasant , cooperative, conversant in an oncology floor medical bed. He appears comfortable at rest. Upbeat mood. TUBES/LINES/DRAINS: Right chest [id number]. SKIN: Multiple tattoos. No jaundice, rashes, or lesions.No wounds seen anteriorly. Skin temperature appropriate. Not diaphoretic. EYES: Pupils equal and round . Sclerae and conjunctivae clear. Fundi not examined. CARDIOVASCULAR: Regular rate and rhythm without murmurs. RESPIRATORY/CHEST: Symmetric, unlabored respirations. FAint inspiratory and expiratory wheezes. Breath sounds equal bilaterally. No rales, or rhonchi. GASTROINTESTINAL: Abdomen soft, obese, nondistended. No tenderness. Bowel sounds normal. GENITOURINARY: Without palpable bladder distension. MUSCULOSKELETAL: Extremities without clubbing, cyanosis, or edema. No mottling. NEUROLOGICAL: Awake and alert. Motor and sensory grossly within normal limits. Follows commands. Cognitively sharp. Moves all extremities. PSYCHIATRIC: No obvious anxiety/depression. No apparent hallucinations or other psychotic thought process. . Diagnostic Tests Laboratory: Laboratory Results - last 72 hr 11/10/17 11/10/17 11/11/17 16:27 20:20 07:53 POC Glucose 159 H 116 H 85 11/11/17 11/11/17 11/11/17 11:53 16:44 22:12 POC Glucose 103 132 H 151 H 11/12/17 11/12/17 11/12/17 09:03 12:06 17:40 POC Glucose 106 107 109 11/12/17 11/13/17 11/13/17 20:56 08:22 12:40 POC Glucose 114 H 96 126 H Result Diagrams: 11/10/17 04:20 11/10/17 04:20 Microbiology: Microbiology 11/05/17 18:00 Aerobic Blood Culture - Final Blood - Other No growth in 5 days Anaerobic Blood Culture - Final No growth in 5 days 11/05/17 18:00 Aerobic Blood Culture - Final Blood - Other No growth in 5 days Anaerobic Blood Culture - Final No growth in 5 days Imaging: Chest X-Ray 11/04/17 15:48 CONCLUSION: Persistent right perihilar soft tissue density which appears stable to slightly decreased in size as compared to the prior CT. No new parenchymal abnormality seen. Head CT 11/05/17 00:00 CONCLUSION: Negative CT Head with and without contrast. Knee X-Ray 11/05/17 00:00 CONCLUSION: Mild degenerative changes as described above. Lumbar Spine MRI 11/05/17 00:00 CONCLUSION: 1. Some evidence of increased metastatic disease to bone with new focus in L1 2. Severe canal stenosis related to dorsal bony retropulsion and disc protrusion at L3-4 which appears grossly unchanged Pelvis MRI 11/05/17 00:00 CONCLUSION: Findings of extensive osseous metastatic disease as above. Avascular necrosis versus metastatic disease left femoral head Shoulder X-Ray 11/05/17 00:00 CONCLUSION: 1. Destructive process in the distal aspect of the right clavicle with a mottled appearance along the lateral border of the scapula concerning for metastatic disease. These were present previously. 2. Slight expansile process in the lateral aspect of rib #7 on the right. Diagnostic considerations include an old healed rib fracture or additional metastatic deposit. This was present as well previously. 3. Proximal humerus remains intact. Assessment and Plan - Disease Oriented Problem List (1) Bone metastases (2) Metastasis from breast cancer (3) Low grade fever Comment: Resolved (4) Diabetes mellitus (5) Dyspnea - Symptom Scale (1) Constipation Comment: Improving . (2) Pain Comment: Improving. Pertinent Non-Medical Issues: Psychosocial: Born in [facility]. Moved to [place] in 1983. 10th grade education. No service. 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 Has a cell cleaner "fiancee" but says he will not be able to for financial reasons. No children. Both parents . Has a sister. Close to a nephew - - Hilton Dorseyther. Patient lives with his fiancee, her mother, and his uncle. Spiritual: Druze and spirituality have not played an important role in his life. Legal: Health care surrogate completed 11/06/2017. Ethical issues impacting care: Patient is capacitated to make his own health care decisions at this time. . Important Contacts: * Ban Varma, primary HCS/significant other: [phone] * Hilton Sorenson, alternate HCS/nephew: [phone] Prognosis: Patient has been battling metastatic breast since 2012. Disease is progressing. He is losing weight. Pain had been growing worse. Pain was keeping him mostly chair bound. Symptoms have improved since hospitalization. Pain/constipation are better and he is able to move more. He has re-started chemo and is to begin radiation. If he has a good response to chemo and radiation he may get some more quality of life. Given the extent of his illness, at such time that patient no longer wants to pursue aggressive cancer directed therapies, he would be eligible for hospice care. . Code Status: Full Code Plan: == Code Status: FULL CODE. Patient wants resuscitation to be attempted and wants a "time limited trial of aggressive care." Should he end up on life support, he does not want to be maintained there if the doctors feel there is little chance of him returning to a life with quality. == Decision making: patient is currently capacitated to make his own health care decisions. Health care surrogate completed (11/06/17). Primary HCS: Ban Varma (klaus); Alternate HCS: García Sorenson (nephew) == Goals of medical treatment: Patient wants his pain and constipation controlled. He wants to pursue any additional cancer directed treatments that might help to slow the progress of his disease. == Symptoms: * Pain: Most of patient's pain appears to be "bone" pain from metastatic disease and it is primarily located in metastatic areas. There is also a neuropathic component on the right where pain radiates down from the right hip toward the right knee and is associated with numbness. Pain is exacerbated by constipation and the constipation creates its own type of pain. Pain is also exacerbated by weight-bearing and movement. He seems to have been helped by low dose dexamethasone -- pain is now controlled better on less opioids. * Constipation: This has been severe and is certainly exacerbated by opioids. He is improving with the current bowel protocol and possibly from being able to reduce opioid usage while on dexamethasone. His constipation has been so painful , he much prefers to have frequent and even loose stools in order to prevent becoming bound up again. * Nausea/vomiting -- much improved. * Dry mouth -- improving. == PLAN * Will continue with current pain regimen as it appears to be working. Should this fail or pain grow worse, recommend changing long acting opioid from morphine to methadone at 7.5 mg po q 8 hours ATC. There is anecdotal evidence that methadone is less constipating and may be more helpful for the neuropathic component of the pain. * Encourage the PRN nebs * Advance physical therapy as tolerated. == Disposition: As patient has essentially been chair-bound for months, he would probably benefit from some physical therapy to become ambulatory again once pain is controlled. This should probably continue post discharge. Patient has been evaluated by [facility] and await their decision. == Patient has indicated that he would like more information on life expectancy so he can plan better, would appreciate oncology guidance. == Will ask nurses to give scheduled senna even if bowels are loose and patient permits. Will also schedule lactulose at HS. He was so painful from constipation, he wants be reassured that he wont' get bound up like that again. == Await radiation therapy simulation. == Next chemo scheduled for 11/17/17. == Palliative care will continue to follow to assist with symptom management and to further clarify goals of medical treatment as the clinical course evolves. . Attestation Attestation: To help prompt me to consider important information that might be impacting today's encounter and assessment, information from prior notes written by myself or my colleagues may have been "brought forward" into today's note. My signature on this note, however, is an attestation that I personally performed the exam, history, and/or decision-making noted today, and, unless otherwise indicated, the interactions with patient, family, and staff as well as the review of records all occurred today. I also attest that the listed assessment and stated plan reflect my best clinical judgment today based on the combination of historical information, prior notes, and today's exam/ interactions. When time spent is documented, it refers only to time spent today by the signer, or if indicated, combined time spent today by collaborating physician/nurse practitioner. .
[2017-11-13] MEDS: Lidocaine 5% Patch T-DERMAL SCH (20:47)
[2017-11-14] MEDS: Insulin NovoLOG Aspart Correctional Sugar Inj SQ SCH ×4 (08:26→23:37)
--- NOTE | 2017-11-14 08:45 | P.PN ---
Subjective Interval history: Follow-up for metastatic breast cancer, bone pain. Patient is doing well. Having bowel movements. No acute concerns. No fever, chills. Physical Exam Vital signs: Vital Signs 11/13/17 09:18 11/13/17 16:00 11/13/17 20:00 Temperature 97.0 F L 98.3 F 99.2 F Pulse Rate 87 92 H 90 Respiratory Rate 20 18 20 Blood Pressure 128/77 113/78 107/71 Pulse Oximetry 96 96 95 11/13/17 21:16 11/14/17 00:48 11/14/17 04:00 Temperature 97.9 F 98.1 F Pulse Rate 85 96 H Respiratory Rate 18 19 20 Blood Pressure 123/74 105/71 Pulse Oximetry 96 96 11/14/17 08:07 Temperature 98.6 F Pulse Rate 86 Respiratory Rate 18 Blood Pressure 108/71 Pulse Oximetry 96 Intake & Output 11/13/17 11/14/17 11/14/17 18:59 06:59 18:59 Intake Total 1930 / 1930 240 / 240 Output Total 1400 / 1400 760 / 760 Balance 530 / 530 -520 / -520 Weight 119 kg Intake: Oral 1930 / 1930 240 / 240 Output: Urine 1400 / 1400 760 / 760 Other: Date of Last Bowel Movement 11/13/17 11/13/17 # Bowel Movements 1 Results - Labs CBC & Chem 7: 11/10/17 04:20 11/10/17 04:20 Laboratory Results - last 24 hr 11/13/17 11/13/17 11/13/17 12:40 15:45 20:54 POC Glucose 126 H 167 H 117 H 11/14/17 08:12 POC Glucose 100 Assessment and Plan - Plan Mr. Sorenson is a pleasant 57-year-old male with a history of metastatic breast cancer hormone positive, HER-2 negative status post bilateral mastectomy, chemo and radiation. Patient was admitted to the hospital due to intractable bone pain due to metastatic disease. Metastatic breast cancer Intractable bone pain -Pain is due to metastatic breast cancer. -Metastasis to the thoracic and lumbar spine, right pelvis -Continue dexamethasone 4 mg daily -Continue lidocaine patch, morphine 30 mg p.o. twice daily as well as 4 mg IV every 3 hours as needed, oxycodone as needed -Radiation oncology simulation pending special equipment availability next week. Dyspnea -Currently asymptomatic, on room air. -DuoNeb PRN. Neutropenia -Patient is currently afebrile. WBC 4.1 with Neutrophil count 2.8K Hypertension -HCTZ 25mg Qday Diabetes mellitus -Currently on Metformin and sliding scale insulin. BG is well controlled. Full code. Heparin SQ.
--- NOTE | 2017-11-14 08:53 | P.PNONC ---
Subjective Interval history: Afebrile, lying in bed in no acute distress. Patient reports his pain is under control. He reports that he was able to work with PT and OT yesterday. Patient did not complete radiation simulation as of yet. Objective Vital Signs/Intake & Output: Vital Signs 11/13/17 09:18 11/13/17 16:00 11/13/17 20:00 Temperature 97.0 F L 98.3 F 99.2 F Pulse Rate 87 92 H 90 Respiratory Rate 20 18 20 Blood Pressure 128/77 113/78 107/71 Pulse Oximetry 96 96 95 11/13/17 21:16 11/14/17 00:48 11/14/17 04:00 Temperature 97.9 F 98.1 F Pulse Rate 85 96 H Respiratory Rate 18 19 20 Blood Pressure 123/74 105/71 Pulse Oximetry 96 96 11/14/17 08:07 Temperature 98.6 F Pulse Rate 86 Respiratory Rate 18 Blood Pressure 108/71 Pulse Oximetry 96 Intake & Output 11/13/17 11/14/17 11/14/17 18:59 06:59 18:59 Intake Total 1930 / 1930 240 / 240 Output Total 1400 / 1400 760 / 760 Balance 530 / 530 -520 / -520 Weight 119 kg Intake: Oral 1930 / 1930 240 / 240 Output: Urine 1400 / 1400 760 / 760 Other: Date of Last Bowel Movement 11/13/17 11/13/17 # Bowel Movements 1 Result Diagrams: 11/10/17 04:20 11/10/17 04:20 Laboratory Results: Laboratory Results - last 24 hr 11/13/17 11/13/17 11/13/17 12:40 15:45 20:54 POC Glucose 126 H 167 H 117 H 11/14/17 08:12 POC Glucose 100 Medications: Active Medications Generic Name Dose Route Start Last Admin Trade Name Freq PRN Reason Stop Dose Admin Acetaminophen 650 mg 11/04/17 18:29 11/05/17 17:06 Tylenol PO 650 mg Q4H PRN Administration Temp > 100.4 Bisacodyl 10 mg 11/04/17 18:29 11/06/17 22:42 Dulcolax Supp RECTAL 10 mg DAILY PRN Administration SEVERE CONSITIPATION Dexamethasone 4 mg 11/06/17 09:00 11/13/17 09:12 Decadron PO 4 mg DAILY WILI Administration Heparin Sodium (Porcine) 5,000 units 11/04/17 21:00 11/13/17 20:47 Heparin Inj SQ 5,000 units Q12HR WILI Administration Hydrochlorothiazide 25 mg 11/05/17 09:00 11/13/17 09:13 Hydrodiuril PO 25 mg DAILY WILI Administration Insulin Aspart 0 unit 11/04/17 21:00 11/14/17 08:26 Novolog Insulin Correctional Sugar Inj SQ Not Given ACHS [facility] Protocol Lactulose 30 ml 11/09/17 10:32 11/12/17 20:53 Lactulose Liq PO 30 ml TID PRN Administration severe constipation Lactulose 30 ml 11/13/17 20:00 11/13/17 20:46 Lactulose Liq PO 30 ml DAILY [facility] Administration Lidocaine HCl 2 patch 11/04/17 21:00 11/13/17 20:47 Lidoderm 5% Patch.12 Hr T-DERMAL 2 patch Q24H WILI Administration Metformin HCl 500 mg 11/05/17 09:00 11/13/17 09:12 Glucophage PO 500 mg DAILY WILI Administration Morphine Sulfate 4 mg 11/04/17 18:31 11/09/17 14:37 Morphine Inj IV.PUSH 4 mg Q3H PRN Administration BREAKTHROUGH PAIN Morphine Sulfate 30 mg 11/04/17 21:00 11/13/17 20:46 Oramorph Sr PO 30 mg BID WILI Administration Ondansetron HCl 4 mg 11/04/17 18:29 11/08/17 15:49 Zofran Inj IV.PUSH 4 mg Q6H PRN Administration NAUSEA OR VOMITING Oxycodone HCl 5 mg 11/09/17 12:49 11/11/17 12:48 Roxicodone PO 5 mg Q4H PRN Administration PAIN SCALE 1-5 Pantoprazole Sodium 40 mg 11/06/17 09:00 11/13/17 09:13 Protonix PO 40 mg DAILY [facility] Administration Patch Removal 1 each 11/05/17 09:00 11/13/17 09:13 Remove Old Patch T-DERMAL 1 each DAILY WILI Administration Senna/Docusate Sodium 2 tab 11/06/17 21:00 11/13/17 20:46 Mary-Colace PO 2 tab BID WILI Administration Sennosides 17.2 mg 11/04/17 18:29 11/09/17 11:59 Senokot PO 17.2 mg Q12H PRN Administration Moderate Constipation Objective Remarks: GENERAL: Obese middle-aged male patient, lying in bed, in no acute distress. SKIN: Warm and dry. HEAD: Normocephalic. EYES: No scleral icterus. No injection or drainage. NECK: Supple, trachea midline. CARDIOVASCULAR: Regular rate and rhythm without murmurs. RESPIRATORY: Anterior breath sounds clear, equal bilaterally. No accessory muscle use. GASTROINTESTINAL: Abdomen soft, non-tender, nondistended. EXTREMITIES: No cyanosis, or edema. MUSCULOSKELETAL: Adequate muscle tone. NEUROLOGICAL: No obvious focal deficit. Awake, alert, and oriented x3. PSYCHIATRIC: Appropriate mood and affect; insight and judgment normal. Assessment/Plan (1) Bone metastases Code(s): C79.51 - Secondary malignant neoplasm of bone Status: Acute (2) Constipation Code(s): K59.00 - Constipation, unspecified Status: Acute - Plan This is a 57-year-old gentleman with metastatic breast cancer. He was first diagnosed with left breast cancer in 2012, he had a bilateral mastectomy. Pathology showed a 6.5 cm infiltrating ductal carcinoma, moderately differentiated with 2/8 lymph nodes positive for metastatic disease. Hormone receptor positive, HER-2 negative. Treated with dose-dense chemotherapy followed by chest wall radiation. Patient was on tamoxifen until he developed metastatic bone disease in 2016. PET scan showed hypermetabolic lesion thoracic spine, lumbar spine, left iliac wing and ribs. He also developed subcutaneous metastatic nodule. Biopsy of the left iliac bone lesion showed metastatic poorly differentiated carcinoma consistent with breast primary. This was hormone receptor +. He was treated with Xeloda October 2016 and had good response, recently he developed progression of bone disease and was started on Taxol. He had 2 infusions of Taxol before developing an allergic infusion reaction. He stopped the Taxol for about 2 weeks. He has recently received his first cycle of Abraxane. Patient was admitted to the hospital for intractable bone pain due to metastatic disease. Plan: 1. Status post Abraxane on 11/10/2017, patient tolerated well. Next dose is November 17, 2017. 2. Patient still has not completed radiation simulation. 3. Reportedly working with PT and OT. 4. Intractable pain, with some improvement. Will increase dexamethasone to 4 mg twice daily. Continue long-acting opiate 30 mg twice a day and Roxicodone for breakthrough pain. - Attending Statement The exam, history, and the medical decision-making described in the above note were completed with the assistance of the mid-level provider. I reviewed and agree with the findings presented. I attest that I had a [id number] encounter with the patient on the same day, and personally performed and documented my assessment and findings in the medical record. Patient seen and examined, vital signs, labs, medications and imaging studies reviewed. Subjectively; patient reports pain in his right shoulder is essentially resolved especially when he remains in bed. The pain in his lower back and right hip seems to persist. He tells me that he thinks his pain may be related to degenerative joint disease as opposed to metastatic cancer. He is asked me to review his scans to help determine what the actual cause of his pain is. He wishes to also discuss longitudinal care of his malignancy and wishes to know what his current disease status is. He wants to know what I think about pain management as opposed to radiation therapy for management of his pain. Overall he appears to be very comfortable. Recommendation: We will increase his dexamethasone to 4 mg twice daily. Continue long and short acting opioids. We will defer long due to renal care to his primary oncologist. I did review his MRI of the lumbar spine, there appears to be some disease involvement in the L1 vertebral body however his pain seems to be centered in his lower lumbar vertebral bodies and sacral spine. I am not certain if the current MRI scans and current disease burden correlates to his symptoms.
[2017-11-14] MEDS: Heparin - SQ 10,000 UNITS/ML Vial SQ SCH ×2 (09:33→21:47)
[2017-11-14] MEDS: Morphine Sulfate 30 MG SR Tablet PO SCH ×2 (09:34→21:48)
[2017-11-14] MEDS: Senna/Docusate Sodium 8.6/50 MG Tablet PO SCH ×2 (09:34→21:48)
[2017-11-14] MEDS: hydroCHLOROthiazide 25 MG Tablet PO SCH (09:34)
[2017-11-14] MEDS: Lidocaine 5% Patch T-DERMAL SCH (21:47)
[2017-11-15] MEDS: Insulin NovoLOG Aspart Correctional Sugar Inj SQ SCH ×4 (07:52→21:15)
[2017-11-15] MEDS: Heparin - SQ 10,000 UNITS/ML Vial SQ SCH ×2 (08:42→21:14)
[2017-11-15] MEDS: Morphine Sulfate 30 MG SR Tablet PO SCH ×2 (08:43→21:39)
[2017-11-15] MEDS: Senna/Docusate Sodium 8.6/50 MG Tablet PO SCH ×2 (08:43→21:13)
[2017-11-15] MEDS: hydroCHLOROthiazide 25 MG Tablet PO SCH (08:43)
--- NOTE | 2017-11-15 10:07 | P.PN ---
Subjective Interval history: Follow-up for metastatic breast cancer, bone pain. Doing well. Walked alone with walker. No fever, chills. Tolerating diet well. Inquires about [facility]. Physical Exam Vital signs: Vital Signs 11/14/17 11:18 11/14/17 15:05 11/14/17 20:00 Temperature 98.7 F 98.9 F 98.5 F Pulse Rate 95 H 76 87 Respiratory Rate 18 18 20 Blood Pressure 107/65 104/63 133/70 Pulse Oximetry 94 L 95 96 11/15/17 00:00 11/15/17 04:00 11/15/17 08:37 Temperature 98.5 F 97.7 F 98.4 F Pulse Rate 75 77 82 Respiratory Rate 18 18 Blood Pressure 122/72 116/70 Pulse Oximetry 97 96 97 Intake & Output 11/14/17 11/15/17 11/15/17 18:59 06:59 18:59 Intake Total 1440 / 1440 320 / 320 Output Total 1375 / 1375 1450 / 1450 Balance 65 / 65 -1130 / -1130 Weight 119 kg Intake: Oral 1440 / 1440 320 / 320 Output: Urine 1375 / 1375 1450 / 1450 Other: # Voids 3 Date of Last Bowel Movement 11/13/17 11/14/17 11/14/17 # Bowel Movements 1 Results - Labs CBC & Chem 7: 11/10/17 04:20 11/10/17 04:20 Laboratory Results - last 24 hr 11/14/17 11/14/17 11/14/17 11:22 17:03 21:58 POC Glucose 116 H 140 H 152 H 11/15/17 07:49 POC Glucose 133 H Assessment and Plan - Plan Mr. Sorenson is a pleasant 57-year-old male with a history of metastatic breast cancer hormone positive, HER-2 negative status post bilateral mastectomy, chemo and radiation. Patient was admitted to the hospital due to intractable bone pain due to metastatic disease. Metastatic breast cancer Intractable bone pain -Pain is due to metastatic breast cancer. -Metastasis to the thoracic and lumbar spine, right pelvis -Continue dexamethasone 4 mg daily -Continue lidocaine patch, morphine 30 mg p.o. twice daily as well as 4 mg IV every 3 hours as needed, oxycodone as needed -Radiation oncology simulation pending special equipment availability next week. Dyspnea -Currently asymptomatic, on room air. -DuoNeb PRN. Neutropenia -Patient is currently afebrile. WBC 4.1 with Neutrophil count 2.8K -CBC, BMP in the AM. Hypertension -HCTZ 25mg Qday Diabetes mellitus -Currently on Metformin and sliding scale insulin. BG is well controlled. Full code. Heparin SQ.
[2017-11-15] MEDS: Lidocaine 5% Patch T-DERMAL SCH (21:15)
[2017-11-16 05:15] LABS: Baso % (Auto) 0.8 % (0.0-2.0); Eos % (Auto) 0.5 % (0.0-4.0); Hematocrit 33.3 % (39.0-51.0); Hemoglobin 11.8 gm/dL (13.0-17.0); Lymph % (Auto) 21.6 % (9.0-44.0); Mean Corpuscular HGB Conc 35.4 % (32.0-36.0); Mean Corpuscular Hemoglobin 32.8 pg (27.0-34.0); Mean Corpuscular Volume 92.7 fL (80.0-100.0); Mean Platelet Volume 7.4 fL (7.0-11.0); Mono # (Auto) 0.2 th/mm3 (0.0-0.9); Mono % (Auto) 5.1 % (0.0-8.0); Neut # (Auto) 3.5 th/mm3 (1.8-7.7); Platelet Count 350 th/mm3 (150-450); Red Blood Count 3.59 mil/mm3 (4.50-5.90); Red Cell Distribution Width 16.2 % (11.6-17.2); White Blood Count 4.8 th/mm3 (4.0-11.0)
[2017-11-16 05:39] LABS: Calcium 8.7 mg/dL (8.5-10.1); Carbon Dioxide 29.8 meq/L (21.0-32.0); Potassium 3.3 meq/L (3.5-5.1)
[2017-11-16] MEDS: Morphine Sulfate 30 MG SR Tablet PO SCH (10:23)
[2017-11-16] MEDS: Senna/Docusate Sodium 8.6/50 MG Tablet PO SCH (10:23)
[2017-11-16] MEDS: hydroCHLOROthiazide 25 MG Tablet PO SCH (10:23)
[2017-11-16] MEDS: Heparin - SQ 10,000 UNITS/ML Vial SQ SCH (10:24)
--- NOTE | 2017-11-16 10:59 | P.PNONC ---
Subjective Interval history: Afebrile. Pain controlled on current medication regimen. Patient reports that he is ready to go home. He states he has a good support system. He is feeling much better. He will follow-up with Dr. kim in the office this week. He states he is scheduled for radiation simulation tomorrow, and he intends on keeping this appointment. Objective Vital Signs/Intake & Output: Vital Signs 11/15/17 12:04 11/15/17 15:08 11/15/17 20:00 Temperature 98.6 F 98 F 97.8 F Pulse Rate 77 79 78 Respiratory Rate 18 18 20 Blood Pressure 121/69 121/72 129/71 Pulse Oximetry 96 96 96 11/16/17 00:00 11/16/17 04:00 Temperature 98.4 F 97.9 F Pulse Rate 79 73 Respiratory Rate 18 18 Blood Pressure 115/75 116/74 Pulse Oximetry 96 96 Intake & Output 11/15/17 11/16/17 11/16/17 18:59 06:59 18:59 Intake Total 2000 / 2000 1000 / 1000 Output Total 1800 / 1800 1600 / 1600 Balance 200 / 200 -600 / -600 Weight 119 kg Intake: Oral 2000 / 2000 1000 / 1000 Output: Urine 1800 / 1800 1600 / 1600 Other: Date of Last Bowel Movement 11/14/17 11/14/17 Result Diagrams: 11/16/17 05:00 11/16/17 05:00 Laboratory Results: Laboratory Results - last 24 hr 11/15/17 11/15/17 11/15/17 12:07 16:48 20:51 WBC RBC Hgb Hct MCV MCH MCHC RDW Plt Count MPV Neut % (Auto) Lymph % (Auto) Shannon % (Auto) Eos % (Auto) Baso % (Auto) Neut # (Auto) Lymph # (Auto) Shannon # (Auto) Eos # (Auto) Baso # (Auto) WBC Differential Differential Comment Sodium Potassium Chloride Carbon Dioxide Anion Gap BUN Creatinine Estimated GFR POC Glucose 149 H 132 H 141 H Random Glucose Calcium 11/16/17 11/16/17 05:00 05:00 WBC 4.8 RBC 3.59 L Hgb 11.8 L Hct 33.3 L MCV 92.7 MCH 32.8 MCHC 35.4 RDW 16.2 Plt Count 350 D MPV 7.4 Neut % (Auto) 72.0 H Lymph % (Auto) 21.6 Shannon % (Auto) 5.1 Eos % (Auto) 0.5 Baso % (Auto) 0.8 Neut # (Auto) 3.5 Lymph # (Auto) 1.0 Shannon # (Auto) 0.2 Eos # (Auto) 0.0 Baso # (Auto) 0.0 WBC Differential . Differential Comment Auto diff final Sodium 136 Potassium 3.3 L Chloride 97 L Carbon Dioxide 29.8 Anion Gap 9 BUN 18 Creatinine 1.18 Estimated GFR 63 L POC Glucose Random Glucose 135 H Calcium 8.7 Medications: Active Medications Generic Name Dose Route Start Last Admin Trade Name Freq PRN Reason Stop Dose Admin Acetaminophen 650 mg 11/04/17 18:29 11/05/17 17:06 Tylenol PO 650 mg Q4H PRN Administration Temp > 100.4 Bisacodyl 10 mg 11/04/17 18:29 11/06/17 22:42 Dulcolax Supp RECTAL 10 mg DAILY PRN Administration SEVERE CONSITIPATION Dexamethasone 4 mg 11/14/17 21:00 11/16/17 10:23 Decadron PO 4 mg BID WILI Administration Heparin Sodium (Porcine) 5,000 units 11/04/17 21:00 11/16/17 10:24 Heparin Inj SQ 5,000 units Q12HR WILI Administration Hydrochlorothiazide 25 mg 11/05/17 09:00 11/16/17 10:23 Hydrodiuril PO 25 mg DAILY WILI Administration Insulin Aspart 0 unit 11/04/17 21:00 11/15/17 21:15 Novolog Insulin Correctional Sugar Inj SQ Not Given ACHS [facility] Protocol Lactulose 30 ml 11/09/17 10:32 11/12/17 20:53 Lactulose Liq PO 30 ml TID PRN Administration severe constipation Lactulose 30 ml 11/13/17 20:00 11/16/17 10:23 Lactulose Liq PO 30 ml DAILY WILI Administration Lidocaine HCl 2 patch 11/04/17 21:00 11/15/17 21:15 Lidoderm 5% Patch.12 Hr T-DERMAL 2 patch Q24H WILI Administration Metformin HCl 500 mg 11/05/17 09:00 11/16/17 10:22 Glucophage PO 500 mg DAILY WILI Administration Morphine Sulfate 4 mg 11/04/17 18:31 11/09/17 14:37 Morphine Inj IV.PUSH 4 mg Q3H PRN Administration BREAKTHROUGH PAIN Morphine Sulfate 30 mg 11/04/17 21:00 11/16/17 10:23 Oramorph Sr PO 30 mg BID WILI Administration Ondansetron HCl 4 mg 11/04/17 18:29 11/08/17 15:49 Zofran Inj IV.PUSH 4 mg Q6H PRN Administration NAUSEA OR VOMITING Oxycodone HCl 5 mg 11/09/17 12:49 11/11/17 12:48 Roxicodone PO 5 mg Q4H PRN Administration PAIN SCALE 1-5 Pantoprazole Sodium 40 mg 11/06/17 09:00 11/16/17 10:23 Protonix PO 40 mg DAILY WILI Administration Patch Removal 1 each 11/05/17 09:00 11/15/17 08:44 Remove Old Patch T-DERMAL 1 each DAILY WILI Administration Senna/Docusate Sodium 2 tab 11/06/17 21:00 11/16/17 10:23 Mary-Colace PO 2 tab BID WILI Administration Sennosides 17.2 mg 11/04/17 18:29 11/09/17 11:59 Senokot PO 17.2 mg Q12H PRN Administration Moderate Constipation Objective Remarks: GENERAL: Obese middle-aged male patient, lying in bed, in no acute distress. SKIN: Warm and dry. HEAD: Normocephalic. EYES: No scleral icterus. No injection or drainage. NECK: Supple, trachea midline. CARDIOVASCULAR: Regular rate and rhythm without murmurs. RESPIRATORY: Anterior breath sounds clear, equal bilaterally. No accessory muscle use. GASTROINTESTINAL: Abdomen soft, non-tender, nondistended. EXTREMITIES: No cyanosis, or edema. MUSCULOSKELETAL: Adequate muscle tone. NEUROLOGICAL: No obvious focal deficit. Awake, alert, and oriented x3. PSYCHIATRIC: Appropriate mood and affect; insight and judgment normal. Assessment/Plan (1) Bone metastases Code(s): C79.51 - Secondary malignant neoplasm of bone Status: Acute (2) Constipation Code(s): K59.00 - Constipation, unspecified Status: Acute - Plan This is a 57-year-old gentleman with metastatic breast cancer. He was first diagnosed with left breast cancer in 2012, he had a bilateral mastectomy. Pathology showed a 6.5 cm infiltrating ductal carcinoma, moderately differentiated with 2/8 lymph nodes positive for metastatic disease. Hormone receptor positive, HER-2 negative. Treated with dose-dense chemotherapy followed by chest wall radiation. Patient was on tamoxifen until he developed metastatic bone disease in 2016. PET scan showed hypermetabolic lesion thoracic spine, lumbar spine, left iliac wing and ribs. He also developed subcutaneous metastatic nodule. Biopsy of the left iliac bone lesion showed metastatic poorly differentiated carcinoma consistent with breast primary. This was hormone receptor +. He was treated with Xeloda October 2016 and had good response, recently he developed progression of bone disease and was started on Taxol. He had 2 infusions of Taxol before developing an allergic infusion reaction. He stopped the Taxol for about 2 weeks. He has recently received his first cycle of Abraxane. Patient was admitted to the hospital for intractable bone pain due to metastatic disease. Plan: 1. Status post Abraxane on 11/10/2017, patient tolerated well. Next dose is November 17, 2017. 2. Patient still has not completed radiation simulation. 3. PT at the bedside. 4. Intractable pain, currently controlled on current pain medications. 5. Pain now controlled. Patient cleared for discharge from an oncology standpoint. Attending is agreeable to prescribe pain medications until he is able to follow-up with his oncologist. Patient to follow-up with this week and maintain currently schedules appointments.
--- NOTE | 2017-11-16 11:12 | P.DS ---
Date of admission: 11/10/17 10:41 Primary care physician: Guanaco Avila Brief History from admission: This is a 49-year-old male with a history of metastatic breast cancer (on chemotherapy) to the thoracic and lumbar spine, right pelvis and lymph nodes, hypertension and diabetes mellitus. He presents to the emergency room complaining of severe pain involving the right pelvis. No recent fall. Patient is on chronic narcotic on long-acting morphine 50 mg twice a day and Percocet 10 mg every 4-6 hours. He was advised by his oncologist was sent to the emergency room for further evaluation and treatment. He received 2 doses of IV morphine 4 mg and 1 dose of 1 mg IV Dilaudid. At this time pain is slightly better. Family history of lung cancer. DS: Medications - Discharge Medications Prescriptions: morphine 30 mg PO BID #14 tab oxycodone 5 mg PO Q6H PRN #28 tab PRN Reason: Pain 5-10 DS: Summary Hospital Course: Mr. Sorenson is a pleasant 57-year-old male with a history of metastatic breast cancer hormone positive, HER-2 negative status post bilateral mastectomy, chemo and radiation. Patient was admitted to the hospital due to intractable bone pain due to metastatic disease. Metastatic breast cancer Intractable bone pain -Pain is due to metastatic breast cancer. -Metastasis to the thoracic and lumbar spine, right pelvis -Continued dexamethasone 4 mg daily in the hospital. Will d/c on discharge. -Continue lidocaine patch, morphine 30 mg p.o. twice daily as well as 4 mg IV every 3 hours as needed, oxycodone as needed -Will d/c patient home on Morphine and Oxycodone. -Patient will follow up with his oncologist. -Patient does not want to consider going to SNF. Oncology team is okay with discharge. Dyspnea -Currently asymptomatic, on room air. -DuoNeb PRN. Neutropenia -Patient is currently afebrile. WBC 4.1 with Neutrophil count 2.8K Hypertension -HCTZ 25mg Qday Diabetes mellitus -Currently on Metformin and sliding scale insulin. BG is well controlled. Full code. Heparin SQ. Checked [facility] site. Patient has received Percocet on 10/23/2017 for 10 days. Patient has metastatic breast cancer. Due to cancer pain, we will give two prescriptions for 7 days - 1) Morphine 30mg BID and 2) Oxycodone 5mg Q6hrs. Patient is advised to check with Oncologist to obtain further pain medications. - Time Spent with Patient Total time spent providing and/or coordinating discharge services: Less than 30 minutes - Quality: VTE Deep Vein Thrombosis/Pulmonary Embolism Present on Admission: No Exam Vital signs: Vital Signs 11/15/17 12:04 11/15/17 15:08 11/15/17 20:00 Temperature 98.6 F 98 F 97.8 F Pulse Rate 77 79 78 Respiratory Rate 18 18 20 Blood Pressure 121/69 121/72 129/71 Pulse Oximetry 96 96 96 11/16/17 00:00 11/16/17 04:00 Temperature 98.4 F 97.9 F Pulse Rate 79 73 Respiratory Rate 18 18 Blood Pressure 115/75 116/74 Pulse Oximetry 96 96 Intake & Output 11/15/17 11/16/17 11/16/17 18:59 06:59 18:59 Intake Total 2000 / 2000 1000 / 1000 Output Total 1800 / 1800 1600 / 1600 Balance 200 / 200 -600 / -600 Weight 119 kg Intake: Oral 2000 / 2000 1000 / 1000 Output: Urine 1800 / 1800 1600 / 1600 Other: Date of Last Bowel Movement 11/14/17 11/14/17 Narrative: GENERAL: Alert, Oriented x 3, NAD. SKIN: Warm and dry. Surgical changes noted on the chest HEAD: Normocephalic. EYES: No scleral icterus. No injection or drainage. NECK: Supple, trachea midline. No JVD or lymphadenopathy. CARDIOVASCULAR: Regular rate and rhythm without murmurs, gallops, or rubs. RESPIRATORY: Breath sounds equal bilaterally. No accessory muscle use. GASTROINTESTINAL: Abdomen soft, non-tender, nondistended. MUSCULOSKELETAL: No cyanosis, or edema. BACK: Nontender without obvious deformity. No CVA tenderness. Results Procedures completed during hospitalization: None. Labs on day of discharge: Labs from last 24 hours 11/16/17 11/16/17 11/15/17 05:00 05:00 20:51 WBC 4.8 RBC 3.59 L Hgb 11.8 L Hct 33.3 L MCV 92.7 MCH 32.8 MCHC 35.4 RDW 16.2 Plt Count 350 D MPV 7.4 Neut % (Auto) 72.0 H Lymph % (Auto) 21.6 [place] % (Auto) 5.1 Eos % (Auto) 0.5 Baso % (Auto) 0.8 Neut # (Auto) 3.5 Lymph # (Auto) 1.0 [place] # (Auto) 0.2 Eos # (Auto) 0.0 Baso # (Auto) 0.0 WBC Differential . Differential Comment Auto diff final Sodium 136 Potassium 3.3 L Chloride 97 L Carbon Dioxide 29.8 Anion Gap 9 BUN 18 Creatinine 1.18 Estimated GFR 63 L POC Glucose 141 H Random Glucose 135 H Calcium 8.7 11/15/17 11/15/17 16:48 12:07 WBC RBC Hgb Hct MCV MCH MCHC RDW Plt Count MPV Neut % (Auto) Lymph % (Auto) [place] % (Auto) Eos % (Auto) Baso % (Auto) Neut # (Auto) Lymph # (Auto) [place] # (Auto) Eos # (Auto) Baso # (Auto) WBC Differential Differential Comment Sodium Potassium Chloride Carbon Dioxide Anion Gap BUN Creatinine Estimated GFR POC Glucose 132 H 149 H Random Glucose Calcium - Impressions ITS Impressions Chest X-Ray 11/04/17 15:48 CONCLUSION: Persistent right perihilar soft tissue density which appears stable to slightly decreased in size as compared to the prior CT. No new parenchymal abnormality seen. Head CT 11/05/17 00:00 CONCLUSION: Negative CT Head with and without contrast. Knee X-Ray 11/05/17 00:00 CONCLUSION: Mild degenerative changes as described above. Lumbar Spine MRI 11/05/17 00:00 CONCLUSION: 1. Some evidence of increased metastatic disease to bone with new focus in L1 2. Severe canal stenosis related to dorsal bony retropulsion and disc protrusion at L3-4 which appears grossly unchanged Pelvis MRI 11/05/17 00:00 CONCLUSION: Findings of extensive osseous metastatic disease as above. Avascular necrosis versus metastatic disease left femoral head Shoulder X-Ray 11/05/17 00:00 CONCLUSION: 1. Destructive process in the distal aspect of the right clavicle with a mottled appearance along the lateral border of the scapula concerning for metastatic disease. These were present previously. 2. Slight expansile process in the lateral aspect of rib #7 on the right. Diagnostic considerations include an old healed rib fracture or additional metastatic deposit. This was present as well previously. 3. Proximal humerus remains intact. Discharge Plan - Discharge Disposition Patient Disposition: 01 Discharge Home - Discharge Condition Condition: Good - Discharge Order Discharge Orders: Discharge Order (Routine); Ordered 11/16/17 Ordered By: Tamiko Shields - Discharge Details Anticipated Discharge Date: 11/16/17 - Physicians Team Attending Provider: Tamiko Shields Other Providers: Anam Mason MD ; Casengo,Insurance ; Tony Simon MD ; Lowell Cordova MD
[2017-11-16] MEDS: Insulin NovoLOG Aspart Correctional Sugar Inj SQ SCH (11:55)
== END 2017-11-16 12:45 | disposition home or self-care (01) ==
LOC: NEPE 14:58 → NEDA 14:58 → HCIN 20:29
PROVIDERS: ADMIT Hospitalist; ATTEND Hospitalist
DX: C77.9 Secondary and unspecified malignant neoplasm of lymph node, unspecified; Z51.5 Encounter for palliative care; R68.2 Dry mouth, unspecified; C50.929 Malignant neoplasm of unspecified site of unspecified male breast; R06.00 Dyspnea, unspecified; Z88.1 Allergy status to other antibiotic agents; M48.061 Spinal stenosis, lumbar region without neurogenic claudication; M51.26 Other intervertebral disc displacement, lumbar region; Z79.84 Long term (current) use of oral hypoglycemic drugs; Z80.3 Family history of malignant neoplasm of breast; I10 Essential (primary) hypertension; D50.9 Iron deficiency anemia, unspecified; Z90.13 Acquired absence of bilateral breasts and nipples; Z79.891 Long term (current) use of opiate analgesic; Z80.1 Family history of malignant neoplasm of trachea, bronchus and lung; Z85.528 Personal history of other malignant neoplasm of kidney; T40.605A Adverse effect of unspecified narcotics, initial encounter; K59.03 Drug induced constipation; Z68.36 Body mass index [BMI] 36.0-36.9, adult; Z88.8 Allergy status to other drugs, medicaments and biological substances; E66.9 Obesity, unspecified; Z79.810 Long term (current) use of selective estrogen receptor modulators (SERMs); Z87.891 Personal history of nicotine dependence; G89.3 Neoplasm related pain (acute) (chronic); Z92.3 Personal history of irradiation; C79.51 Secondary malignant neoplasm of bone; Z17.1 Estrogen receptor negative status [ER-]; Z90.5 Acquired absence of kidney; E87.6 Hypokalemia; D70.9 Neutropenia, unspecified; R50.81 Fever presenting with conditions classified elsewhere; E11.9 Type 2 diabetes mellitus without complications